=== PATIENT | male | born 1965 | race Caucasian/White ===

== ENCOUNTER 2016-12-07 19:08 | Inpatient (IN) | payer MEDICAID, OTHER ==
[2016-12-07] MEDS ORDERED: Albuterol-Ipratrop 3 mg / 0.5 (3 ml) UD ONE ×2 (19:32→20:21)
[2016-12-07] MEDS ORDERED: Albuterol-Ipratrop 3 mg / 0.5 (3 ml) UD INH STA ×2 (19:40→20:06)
[2016-12-07 19:46] LABS: ADD MANUAL DIFF? NO
[2016-12-07 19:59] LABS: CHLORIDE 97 mmol/L (98-107); SODIUM 135 mmol/L (132-148)
[2016-12-07 20:00] LABS: ALB/GLOB RATIO 0.9 (1.0-2.1); AST/SGOT 17 U/L (17-59); BILIRUBIN,TOTAL 0.9 mg/dL (0.2-1.3); BLOOD UREA NITROGEN 14 mg/dL (9-20); CARBON DIOXIDE 26 mmol/L (22-30); GFR AFRICAN-AMERICAN > 60; TOTAL PROTEIN 8.8 g/dL (6.3-8.3)
[2016-12-07 20:01] LABS: ALKALINE PHOSPHATASE 90 U/L (38-126); ALT/SGPT 18 U/L (21-72); CALCIUM 8.6 mg/dl (8.6-10.4); GLUCOSE,RANDOM 106 mg/dL (75-110); POTASSIUM 3.9 mmol/L (3.6-5.2)
[2016-12-07 20:07] LABS: BASO # 0.1 K/uL (0.0-0.2); BASO % 0.6 % (0.0-2.0); EOS % 0.2 % (0.0-4.0); HEMATOCRIT 41.6 % (35.0-51.0); LYMPH # 2.7 K/uL (1.0-4.3); LYMPH % 13.9 % (20.0-40.0); MEAN CELL VOLUME 90.8 fL (80.0-94.0); MEAN CORPUSCULAR HEMOGLOBIN 30.7 pg (27.0-31.0); MEAN CORPUSCULAR HGB CONC 33.7 g/dL (33.0-37.0); MEAN PLATELET VOLUME 9.2 fL (7.2-11.7); MONO # 2.4 K/uL (0.0-0.8); MONO % 12.5 % (0.0-10.0); PLATELET COUNT 352 K/uL (130-400); RED CELL DISTRIBUTION WIDTH 13.4 % (11.5-14.5); WHITE BLOOD COUNT 19.2 K/uL (4.8-10.8)
--- NOTE | 2016-12-07 20:55 | C.PDOC ---
History Of Present Illness 51 y/o male presents to the emergency department with complains of cough and SOB for the past 2 weeks. Pt recently traveled out of the country to [facility]. Pt also complaining of dysuria x2 weeks. Pt denies chest pain, penile discharge , fever, vomiting or any other complaints. Time Seen by Provider: 12/07/16 20:00 Chief Complaint (Nursing): Cough, Cold, Congestion History Per: Patient History/Exam Limitations: no limitations Onset/Duration Of Symptoms: Days Current Symptoms Are (Timing): Still Present Severity: Moderate Recent travel outside of the [place]: Yes Past Medical History Reviewed: Historical Data, Nursing Documentation, Vital Signs Vital Signs: Last Vital Signs Temp 98.4 F 12/07/16 22:52 Pulse 102 H 12/07/16 22:52 Resp 20 12/07/16 22:52 BP 122/79 12/07/16 22:52 Pulse Ox 96 12/07/16 22:52 - Medical History PMH: Anemia, Asthma Family History: States: Unknown Family Hx - Social History Hx Tobacco Use: No Hx Alcohol Use: Yes Hx Substance Use: No - Immunization History Hx Tetanus Toxoid Vaccination: No Hx Influenza Vaccination: No Hx Pneumococcal Vaccination: No Review Of Systems Except As Marked, All Systems Reviewed And Found Negative. Constitutional: Negative for: Fever Cardiovascular: Negative for: Chest Pain Respiratory: Positive for: Cough, Shortness of Breath Gastrointestinal: Negative for: Vomiting Genitourinary: Positive for: Dysuria. Negative for: Penile Discharge Physical Exam - Physical Exam Appears: Non-toxic, No Acute Distress Skin: Warm, Dry, No Rash Head: Atraumatic, Normacephalic Oral Mucosa: Moist Throat: Normal, No Erythema Neck: Normal, Normal ROM, Supple Chest: Symmetrical Cardiovascular: Rhythm Regular, No Murmur Respiratory: Normal Breath Sounds, No Rales, No Rhonchi, No Wheezing, Other ( dry nonproductive cough) Gastrointestinal/Abdominal: Normal Exam, Soft, No Tenderness Extremity: Normal ROM Extremity: Bilateral: Atraumatic Neurological/Psych: Oriented x3, Normal Speech ED Course And Treatment - Laboratory Results Result Diagrams: 12/07/16 19:45 12/07/16 19:45 Lab Interpretation: Abnormal (UA 86 WBC's) O2 Sat by Pulse Oximetry: 97 (room air) Pulse Ox Interpretation: Normal - Radiology CXR: Interpreted by Me CXR Interpretation: Yes: Infiltrates (? RLL/RML infiltrate) Progress Note: Plan: labs, CXR, UA, nebulizer, pepcid, prednisone Reevaluation Time: 22:38 Reassessment Condition: Improved - Physician Consult Information Outcome Of Conversation: 223: d/w Dr. Nye- Hospitalist medicine conduit helper Medical Decision Making Medical Decision Making: atypical PNA Asthma? UTI ? Pyelo leukocytosis may be related to recent prednisone burst from an outside clinic for asthma treatment. 2230: Initially tachycardic and tachypneic considered as asthmatic and delays in UA and afebrile pt appeared as simple asthma. later with pyuria, back pain, leukocytosis with L shift and tachycardia/fever, then blood/urine cultures ordered and broad spectrum abx started. Disposition Doctor Will See Patient In The: Hospital Counseled Patient/Family Regarding: Studies Performed, Diagnosis - Disposition Disposition: HOSPITALIZED Disposition Time: 22:39 Condition: GOOD - Clinical Impression Clinical Impression: Atypical pneumonia, UTI (urinary tract infection), Pyelonephritis - Scribe Statement The provider has reviewed the documentation as recorded by the Nhan Fulton Provider Attestation: All medical record entries made by the Nhan were at my direction and personally dictated by me. I have reviewed the chart and agree that the record accurately reflects my personal performance of the history, physical exam, medical decision making, and the department course for this patient. I have also personally directed, reviewed, and agree with the discharge instructions and disposition.
[2016-12-07 21:45] LABS: RBC URINE 15 /hpf (0-3); URINE BACTERIA RARE (<OCC); URINE BILIRUBIN NEGATIVE (NEGATIVE); URINE BLOOD NEGATIVE (NEGATIVE); URINE COLOR Yellow (YELLOW); URINE GLUCOSE (UA) NORMAL (Normal); URINE KETONE 1+ mg/dL (NEGATIVE); URINE LEUKOCYTE ESTERASE 2+ Leu/uL (Negative); URINE PROTEIN 2+ mg/dL (NEGATIVE); URINE UROBILINOGEN NORMAL mg/dL (0.2-1.0); WBC URINE 86 /hpf (0-5)
[2016-12-07] MEDS ORDERED: Azithromycin 500 MG in Sodium Chloride 0.9% 250 ML IV STA (22:33)
[2016-12-07] MEDS ORDERED: Sodium Chloride 0.9% 1,000 ML IV ONE (22:34)
[2016-12-07] MEDS ORDERED: cefTRIAXone IV 1 gm in Dextros 50 ML IVPB ONE (22:35)
[2016-12-07] MEDS ORDERED: Azithromycin 500mg/250ML NS 500 MG/250 ML BAG IVPB ONE (23:07)
[2016-12-07] MEDS ORDERED: Albuterol 0.042% Inhal Sol (1.25 mg/3 mL) UD INH PRN (23:40)
[2016-12-07] MEDS ORDERED: Azithromycin 500mg/250ML NS 500 MG/250 ML BAG IVPB SCH (23:45)
[2016-12-08] MEDS ORDERED: Sodium Chloride 0.9% 500 ML IV ONE (00:23)
[2016-12-08 01:00] LABS: VENOUS BLOOD GAS BASE EXCESS -15.5 mmol/L (0.0-2.0); VENOUS BLOOD GAS PCO2 16 mmHg (40-60); VENOUS BLOOD PH 7.31 (7.32-7.43)
[2016-12-08] MEDS: Sodium Chloride 0.9% 1,000 ML IV SCH ×4 (01:30→20:45)
[2016-12-08] MEDS ORDERED: Iodixanol 320 MG/ML 100 ML BOTTLE IV ONE (03:36)
--- NOTE | 2016-12-08 04:05 | CP.PCM.HP ---
<Karen Walters - Last Filed: 12/08/16 04:05> History of Present Illness - History of Present Illness History of Present Illness: CC - "Burning while urinating" HPI - 51 year old male with a past medical history of Asthma presents to the ED for dysuria. He stated that he went to [place] recently to help his brother and because it was so dry he got an asthma exacerbation. He was seen by a doctor then and was given albuterol and oral steroids. He reports that for the past week he has had this dysuria. He denieds penile discharge. He denies seeing blood in the urine. He reports fevers and chills and states that he is sweating a lot. He admitted to some tenderness on his Left side and felt suprapubic pain earlier in the week but now this is gone. He admits to sexual acitvity with his girlfriends. He denies all other complaints. PMHx - Asthma (last exacerbation 2 weeks ago then 4years ago, never intubated) Meds - Albuterol, recenlty took steroids for exacerbation Allergies - PEN (rash on face) FamHx - mom had colon cancer, alive, father has diabetes, brother has asthma, no hx NH or stroke Surg - denies Social - used to drink a lot now only occasionally, denied smoking or drug use Present on Admission - Present on Admission Any Indicators Present on Admission: No Review of Systems - Constitutional Constitutional: Chills, Fever, Night Sweats. absent: Headache - EENT Eyes: absent: Blurred Vision, Change in Vision Ears: absent: Dizziness - Cardiovascular Cardiovascular: absent: Chest Pain, Chest Pain at Rest, Palpitations, Pedal Edema, Syncope - Respiratory Respiratory: Cough. absent: Dyspnea, Dyspnea on Exertion - Gastrointestinal Gastrointestinal: absent: Abdominal Pain, Constipation, Diarrhea, Nausea, Vomiting - Genitourinary Genitourinary: Change in Urinary Stream, Dysuria, Flank Pain - Neurological Neurological: absent: Dizziness, Numbness, Tingling, Weakness Past Patient History - Past Medical History & Family History Past Medical History?: Yes - Past Social History Smoking Status: Never Smoked - CARDIAC Hx Cardiac Disorders: No - PULMONARY Hx Respiratory Disorders: Yes Hx Asthma: Yes - NEUROLOGICAL Hx Neurological Disorder: No - HEENT Hx HEENT Problems: No - RENAL Hx Chronic Kidney Disease: No - ENDOCRINE/METABOLIC Hx Endocrine Disorders: No - HEMATOLOGICAL/ONCOLOGICAL Hx Blood Disorders: Yes Hx Anemia: Yes - INTEGUMENTARY Hx Dermatological Problems: No - MUSCULOSKELETAL/RHEUMATOLOGICAL Hx Musculoskeletal Disorders: No Hx Falls: No - GASTROINTESTINAL Hx Gastrointestinal Disorders: No - PSYCHIATRIC Hx Psychophysiologic Disorder: No Hx Substance Use: No - SURGICAL HISTORY Hx Surgeries: No - ANESTHESIA Hx Anesthesia: No Hx Anesthesia Reactions: No Hx Malignant Hyperthermia: No Has any member of the family had a problem w/ anesthesia?: No Meds Allergies/Adverse Reactions: Allergies Allergy/AdvReac Type Severity Reaction Status Date / Time No Known Allergies Allergy Verified 06/03/15 09:32 Physical Exam - Constitutional Appears: Toxic, No Acute Distress Additional comments: DIaphoretic - Head Exam Head Exam: ATRAUMATIC, NORMAL INSPECTION - Eye Exam Eye Exam: EOMI, PERRL - ENT Exam ENT Exam: Mucous Membranes Moist - Respiratory Exam Respiratory Exam: Clear to Auscultation Bilateral, NORMAL BREATHING PATTERN. absent: Accessory Muscle Use, Respiratory Distress - Cardiovascular Exam Cardiovascular Exam: Tachycardia, REGULAR RHYTHM, +S1, +S2 - GI/Abdominal Exam GI & Abdominal Exam: Normal Bowel Sounds, Soft. absent: Distended, Firm, Guarding, Tenderness - Extremities Exam Extremities exam: Positive for: normal inspection - Back Exam Back exam: NORMAL INSPECTION. absent: CVA tenderness (L), CVA tenderness (R), paraspinal tenderness - Neurological Exam Neurological exam: Alert, Oriented x3 - Psychiatric Exam Psychiatric exam: Normal Affect, Normal Mood - Skin Skin Exam: Dry, Intact, Normal Color, Warm Results - Vital Signs Recent Vital Signs: Last Vital Signs Temp 97.9 F 12/08/16 00:38 Pulse 100 H 12/08/16 00:38 Resp 20 12/08/16 00:38 BP 113/73 12/08/16 00:38 Pulse Ox 97 12/08/16 00:42 - Labs Result Diagrams: 12/07/16 19:45 12/07/16 19:45 Labs: Laboratory Results - last 24 hr 12/08/16 00:54 pO2 32 VBG pH 7.31 L VBG pCO2 16 L* VBG HCO3 11.7 VBG Total CO2 8.6 L VBG O2 Sat (Calc) 73.6 H VBG Base Excess -15.5 L VBG Potassium 1.0 L* Sodium 155.0 H Chloride 130.0 H Glucose 74 L Lactate 0.8 Crit Value Called To Dr bautista Crit Value Called By Jil bowers rt Crit Value Read Back Y Blood Gas Notified Time 103 Venous Blood Potassium 1.0 L* Assessment & Plan - Assessment and Plan (Free Text) Assessment: UTI - SIRS criteria r/o pyelonephritis WBC 19.2 (recent steroid use), Febrile, Tachycardic, diaphoretic UA 2+ LE, 86 WBC, 15 RBC 1+Ketones, 2+ protein Tylenol prn fever Ceftriaxone 1gm IVPB daily (started 12/07) f/u CT chest,abd,pelvis f/u chest X ray official read VBG lactic Acid 0.8 NS bolus NS at 150 cc/hour f/u echo f/u am labs, blood, urine cultures, f/u repeat lactic acid Asthma r/o pneumonia f/u CT chest,abd,pelvis Albuterol prn Pulmicort INH Q12 hours Azithromycin 500mg IVPB Q24 hours (started 12/07) Prophylactic Measures Pepcid 20mg PO BID Heparin SC <Mihir Bautista P - Last Filed: 12/08/16 23:35> Results - Vital Signs Recent Vital Signs: Last Vital Signs Temp 97.5 F L 12/08/16 15:36 Pulse 93 H 12/08/16 15:36 Resp 20 12/08/16 15:36 BP 119/74 12/08/16 15:36 Pulse Ox 96 12/08/16 15:36 - Labs Result Diagrams: 12/08/16 05:28 12/08/16 05:28 Labs: Laboratory Results - last 24 hr 12/08/16 12/08/16 12/08/16 00:54 05:28 05:28 WBC 17.5 H RBC 4.45 Hgb 13.4 Hct 40.9 MCV 91.8 MCH 30.1 MCHC 32.8 L RDW 13.6 Plt Count 342 MPV 9.3 Neut % (Auto) 90.7 H Lymph % (Auto) 7.0 L Hall % (Auto) 1.5 Eos % (Auto) 0.0 Baso % (Auto) 0.8 Neut # 15.9 H Lymph # 1.2 Hall # 0.3 Eos # 0.0 Baso # 0.1 Neutrophils % (Manual) 90 H Lymphocytes % (Manual) 9 L Monocytes % (Manual) 1 Platelet Estimate Normal pO2 32 VBG pH 7.31 L VBG pCO2 16 L* VBG HCO3 11.7 VBG Total CO2 8.6 L VBG O2 Sat (Calc) 73.6 H VBG Base Excess -15.5 L VBG Potassium 1.0 L* Sodium 155.0 H 139 Chloride 130.0 H 102 Glucose 74 L Lactate 0.8 Crit Value Called To Dr bautista Crit Value Called By Jil bowers rt Crit Value Read Back Y Blood Gas Notified Time 103 Potassium 3.9 Carbon Dioxide 26 Anion Gap 16 BUN 13 Creatinine 0.9 Est GFR ( Amer) > 60 Est GFR (Non-Af Amer) > 60 Random Glucose 176 H Lactic Acid Calcium 8.4 L Phosphorus 3.3 Magnesium 2.1 Total Bilirubin 0.6 AST 21 ALT 15 L Alkaline Phosphatase 78 Total Protein 8.4 H Albumin 4.0 Globulin 4.4 H Albumin/Globulin Ratio 0.9 L Venous Blood Potassium 1.0 L* HIV 1&2 Antibody Screen Ur L.pneumophila Ag Mycoplasma pneumon IgM 12/08/16 12/08/16 12/08/16 05:28 05:28 05:28 WBC RBC Hgb Hct MCV MCH MCHC RDW Plt Count MPV Neut % (Auto) Lymph % (Auto) Hall % (Auto) Eos % (Auto) Baso % (Auto) Neut # Lymph # Hall # Eos # Baso # Neutrophils % (Manual) Lymphocytes % (Manual) Monocytes % (Manual) Platelet Estimate pO2 VBG pH VBG pCO2 VBG HCO3 VBG Total CO2 VBG O2 Sat (Calc) VBG Base Excess VBG Potassium Sodium Chloride Glucose Lactate Crit Value Called To Crit Value Called By Crit Value Read Back Blood Gas Notified Time Potassium Carbon Dioxide Anion Gap BUN Creatinine Est GFR ( Amer) Est GFR (Non-Af Amer) Random Glucose Lactic Acid 1.2 Calcium Phosphorus Magnesium Total Bilirubin AST ALT Alkaline Phosphatase Total Protein Albumin Globulin Albumin/Globulin Ratio Venous Blood Potassium HIV 1&2 Antibody Screen Negative Ur L.pneumophila Ag Negative Mycoplasma pneumon IgM Negative Attending/Attestation - Attestation I have personally seen and examined this patient.: Yes I have fully participated in the care of the patient.: Yes I have reviewed all pertinent clinical information: Yes Notes (Text): 12/08/16 23:33 With multifocal symptoms, young male, with weight loss, legionella will be r/o, hiv status, watchful eye for bactermia while empirically treating above systems with antibiotics.
[2016-12-08 05:32] LABS: BASO # 0.1 K/uL (0.0-0.2); BASO % 0.8 % (0.0-2.0); HEMATOCRIT 40.9 % (35.0-51.0); LYMPH # 1.2 K/uL (1.0-4.3); MEAN CELL VOLUME 91.8 fL (80.0-94.0); MEAN CORPUSCULAR HEMOGLOBIN 30.1 pg (27.0-31.0); MEAN CORPUSCULAR HGB CONC 32.8 g/dL (33.0-37.0); MEAN PLATELET VOLUME 9.3 fL (7.2-11.7); MONO # 0.3 K/uL (0.0-0.8); MONO % 1.5 % (0.0-10.0); PLATELET COUNT 342 K/uL (130-400); RED CELL DISTRIBUTION WIDTH 13.6 % (11.5-14.5); WHITE BLOOD COUNT 17.5 K/uL (4.8-10.8)
[2016-12-08 05:40] LABS: CHLORIDE 102 mmol/L (98-107)
[2016-12-08 05:41] LABS: POTASSIUM 3.9 mmol/L (3.6-5.2); SODIUM 139 mmol/L (132-148)
[2016-12-08 05:43] LABS: ALKALINE PHOSPHATASE 78 U/L (38-126); AST/SGOT 21 U/L (17-59); BILIRUBIN,TOTAL 0.6 mg/dL (0.2-1.3); CARBON DIOXIDE 26 mmol/L (22-30); GFR AFRICAN-AMERICAN > 60
[2016-12-08 05:44] LABS: ALB/GLOB RATIO 0.9 (1.0-2.1); ALT/SGPT 15 U/L (21-72); BLOOD UREA NITROGEN 13 mg/dL (9-20); CALCIUM 8.4 mg/dl (8.6-10.4); GLUCOSE,RANDOM 176 mg/dL (75-110); MAGNESIUM 2.1 mg/dL (1.6-2.3); PHOSPHOROUS 3.3 mg/dL (2.5-4.5); TOTAL PROTEIN 8.4 g/dL (6.3-8.3)
[2016-12-08 06:23] LABS: NEUTROPHIL 90 % (50-75); TOTAL CELLS COUNTED 100
[2016-12-08] MEDS: Albuterol 0.083% Inhal Sol (2.5 mg/3 mL) UD INH PRN (08:27)
[2016-12-08] MEDS: Budesonide 0.5 mg/2 ml Inhal Susp UD INH SCH ×2 (08:27→20:24)
[2016-12-08 08:41] LABS: LEGIONELLA AG URINE NEGATIVE (NEGATIVE)
--- NOTE | 2016-12-08 09:56 | CP.PCM.PN ---
Subjective - Date & Time of Evaluation Date of Evaluation: 12/08/16 Time of Evaluation: 09:10 - Subjective Subjective: Medicine Note- Hospitalist Note Medicine Note- Hospitalist Service Patient was seen and examined at bedside. Patient reports that he still has some mild dysuria. Patient reports his breathing is much better than when he first came in. No events overnight, per nursing. Objective - Vital Signs/Intake and Output Vital Signs (last 24 hours): Temp Pulse Resp BP Pulse Ox 97.5 F L 96 H 20 125/85 98 12/08/16 07:35 12/08/16 07:35 12/08/16 07:35 12/08/16 07:35 12/08/16 07:35 - Medications Medications: Current Medications Acetaminophen (Tylenol 325mg Tab) 650 mg PO Q6 PRN PRN Reason: Fever >100.4 F Albuterol Sulfate (Albuterol 0.083% Inhal Amanda (2.5 Mg/3 Ml) Ud) 2.5 mg INH RQ6 PRN PRN Reason: Wheezing Last Admin: 12/08/16 08:27 Dose: 2.5 mg Albuterol Sulfate (Albuterol 0.042% Inhal Amanda (1.25mg/3ml) Ud) 1.25 mg INH RQ3 PRN PRN Reason: Wheezing Budesonide (Pulmicort Respules) 0.5 mg INH RQ12 [facility] Last Admin: 12/08/16 08:27 Dose: 0.5 mg Famotidine (Pepcid) 20 mg PO BID [facility] Last Admin: 12/08/16 09:29 Dose: 20 mg Heparin Sodium (Porcine) (Heparin) 5,000 units SC Q8 [facility] Last Admin: 12/08/16 07:43 Dose: 5,000 units Sodium Chloride (Sodium Chloride 0.9%) 1,000 mls @ 150 mls/hr IV .Q6H40M [facility] Last Admin: 12/08/16 07:05 Dose: 150 mls/hr Ceftriaxone Sodium 1 gm/ (Sodium Chloride) 100 mls @ 100 mls/hr IVPB DAILY [facility] Last Admin: 12/08/16 09:29 Dose: 100 mls/hr Azithromycin (Zithromax 500mg In Ns Addvantage) 500 mg in 250 mls @ 167 mls/hr IVPB Q24H [facility] Last Admin: 12/07/16 23:48 Dose: Not Given Pneumococcal Polyvalent Vaccine (Pneumovax 23 Vaccine) 0.5 ml IM .ONCE ONE Stop: 12/11/16 14:01 - Labs Labs: 12/08/16 05:28 12/08/16 05:28 - Constitutional Appears: Non-toxic, No Acute Distress - Head Exam Head Exam: ATRAUMATIC, NORMAL INSPECTION, NORMOCEPHALIC - Eye Exam Pupil Exam: NORMAL ACCOMODATION, PERRL - ENT Exam ENT Exam: Mucous Membranes Moist - Respiratory Exam Respiratory Exam: Clear to Ausculation Bilateral, NORMAL BREATHING PATTERN. absent: Prolonged Expiratory Phase, Rales, Rhonchi, Wheezes - Cardiovascular Exam Cardiovascular Exam: REGULAR RHYTHM, +S1, +S2 - GI/Abdominal Exam GI & Abdominal Exam: Soft, Normal Bowel Sounds. absent: Guarding, Rigid, Tenderness, Diminished Bowel Sounds, Hypoactive Bowel Sounds - Extremities Exam Extremities Exam: Normal Capillary Refill - Back Exam Back Exam: absent: CVA tenderness (L) - Neurological Exam Neurological Exam: Alert, Awake, Oriented x3 - Psychiatric Exam Psychiatric exam: Normal Affect, Normal Mood - Skin Skin Exam: Dry, Intact, Normal Color, Warm Assessment and Plan - Assessment and Plan (Free Text) Assessment: UTI - SIRS criteria r/o pyelonephritis WBC 19.2 (recent steroid use), Febrile, Tachycardic, diaphoretic UA 2+ LE, 86 WBC, 15 RBC 1+Ketones, 2+ protein Tylenol prn fever Ceftriaxone 1gm IVPB daily (started 12/07) f/u CT chest,abd,pelvis f/u chest X ray official read VBG lactic Acid 0.8 NS bolus NS at 150 cc/hour f/u echo f/u am labs, blood, urine cultures, f/u repeat lactic acid Asthma r/o pneumonia f/u CT chest,abd,pelvis Albuterol prn Pulmicort INH Q12 hours Azithromycin 500mg IVPB Q24 hours (started 12/07) Prophylactic Measures Pepcid 20mg PO BID Heparin SC
--- NOTE | 2016-12-08 11:39 | CP.PCM.PN ---
Subjective - Date & Time of Evaluation Date of Evaluation: 12/08/16 Time of Evaluation: 08:00 - Subjective Subjective: Medicine Note for Dr. Ruby, Patient was seen and examined at bedside. Patient reports his breathing has much improved. Admitted to chills and diaphoresis. Denied fever, headache, chest pain, abdominal pain, n/v/d/c, or urinary symptoms. Objective - Vital Signs/Intake and Output Vital Signs (last 24 hours): Temp Pulse Resp BP Pulse Ox 97.5 F L 96 H 20 125/85 98 12/08/16 07:35 12/08/16 07:35 12/08/16 07:35 12/08/16 07:35 12/08/16 07:35 - Medications Medications: Current Medications Acetaminophen (Tylenol 325mg Tab) 650 mg PO Q6 PRN PRN Reason: Fever >100.4 F Albuterol Sulfate (Albuterol 0.083% Inhal Amanda (2.5 Mg/3 Ml) Ud) 2.5 mg INH RQ6 PRN PRN Reason: Wheezing Last Admin: 12/08/16 08:27 Dose: 2.5 mg Albuterol Sulfate (Albuterol 0.042% Inhal Amanda (1.25mg/3ml) Ud) 1.25 mg INH RQ3 PRN PRN Reason: Wheezing Budesonide (Pulmicort Respules) 0.5 mg INH RQ12 [facility] Last Admin: 12/08/16 08:27 Dose: 0.5 mg Famotidine (Pepcid) 20 mg PO BID [facility] Last Admin: 12/08/16 09:29 Dose: 20 mg Heparin Sodium (Porcine) (Heparin) 5,000 units SC Q8 [facility] Last Admin: 12/08/16 07:43 Dose: 5,000 units Sodium Chloride (Sodium Chloride 0.9%) 1,000 mls @ 150 mls/hr IV .Q6H40M [facility] Last Admin: 12/08/16 07:05 Dose: 150 mls/hr Ceftriaxone Sodium 1 gm/ (Sodium Chloride) 100 mls @ 100 mls/hr IVPB DAILY [facility] Last Admin: 12/08/16 09:29 Dose: 100 mls/hr Azithromycin (Zithromax 500mg In Ns Addvantage) 500 mg in 250 mls @ 167 mls/hr IVPB Q24H [facility] Last Admin: 12/07/16 23:48 Dose: Not Given Pneumococcal Polyvalent Vaccine (Pneumovax 23 Vaccine) 0.5 ml IM .ONCE ONE Stop: 12/11/16 14:01 - Labs Labs: 12/08/16 05:28 12/08/16 05:28 - Constitutional Appears: No Acute Distress - Head Exam Head Exam: NORMAL INSPECTION, NORMOCEPHALIC - Respiratory Exam Respiratory Exam: Clear to Ausculation Bilateral, NORMAL BREATHING PATTERN. absent: Wheezes - Cardiovascular Exam Cardiovascular Exam: REGULAR RHYTHM, RRR, +S1, +S2 - GI/Abdominal Exam GI & Abdominal Exam: Soft, Normal Bowel Sounds. absent: Distended, Tenderness - Extremities Exam Extremities Exam: Normal Inspection. absent: Pedal Edema, Tenderness - Neurological Exam Neurological Exam: Alert, Awake, Oriented x3 - Skin Skin Exam: Dry, Intact, Normal Color, Warm Assessment and Plan - Assessment and Plan (Free Text) Plan: UTI - SIRS criteria r/o pyelonephritis WBC 19.2 (recent steroid use), Febrile, Tachycardic, Diaphoretic UA 2+ LE, 86 WBC, 15 RBC 1+Ketones, 2+ protein VBG lactic Acid 0.8 ---> 1.2 NS at 150 cc/hour Tylenol prn fever Ceftriaxone 1gm IVPB daily (started 12/07) f/u CT chest,abd,pelvis f/u echo f/u blood, urine cultures Asthma r/o pneumonia - No PNA on CT, stopped Azithromycin f/u chest X ray official read f/u CT chest,abd,pelvis official read Albuterol prn Pulmicort INH Q12 hours Prophylactic Measures Pepcid 20mg PO BID Heparin SC [facility] Quincy Aguirre DO, PGY-1
--- NOTE | 2016-12-08 16:55 | CT ---
PROCEDURE: CT Chest, Abdomen and Pelvis with intravenous contrast HISTORY: r/o pyelo, and pneumonia COMPARISON: Comparison made with chest radiograph dated 12/07/2016 TECHNIQUE: IV dose administered: 100 cc Visipaque 320 contrast material. Radiation dose: Total exam DLP = mGy-cm. This CT exam was performed using one or more of the following dose reduction techniques: Automated exposure control, adjustment of the mA and/or kV according to patient size, and/or use of iterative reconstruction technique. FINDINGS: CT CHEST WITH CONTRAST: LUNGS: Mild atelectasis/ scarring both posterior sulci and left greater than right. In addition, there is a vague very vague hazy translucent ground-glass opacity in the lingular region which is nonspecific though this could represent some atelectasis. Remaining lung singh are clear. Early infection cannot be completely excluded. MEDIASTINUM: Heart size is within range of normal. No significant pericardial effusion. Ascending thoracic aorta measures approximately 2.8 cm and descending thoracic aorta measures approximately 2.3 cm. Pulmonary trunk measures approximately 2.7 cm. Few small nonspecific mediastinal lymph nodes are present. No significant hilar adenopathy is identified. There is small hiatal hernia with slight wall thickening of the distal esophagus that could be due to protrusion of gastric mucosa. Possibility of esophagitis not excluded. The central airways are midline and patent. LYMPH NODES: As above. PLEURA: No evidence of pneumothorax. No pleural effusion. BONES: Unremarkable. OTHER FINDINGS: None. CT ABDOMEN AND PELVIS: LIVER: Liver exhibits normal size just over 16 cm in cc dimension. Mild diffuse fatty hepatic infiltration. Portal and splenic veins are opacified. GALLBLADDER AND BILE DUCTS: Gallbladder is physiologically distended. No evidence of intraluminal gallbladder calculi. PANCREAS: Unremarkable. No gross lesion or ductal dilatation. SPLEEN: Unremarkable. ADRENALS: There are no adrenal lesions. KIDNEYS AND URETERS: There is a new area of diminished contrast enhancement in the upper pole right renal cortex consistent with pyelonephritis. There may be a few punctate calcifications upper pole cortex as well. Periureteral infiltration/ stranding proximally ureter likely postinflammatory as well. No evidence hydronephrosis. Right kidney appears unremarkable. VASCULATURE: Unremarkable. No aortic aneurysm. BOWEL: Evaluation of the bowel is limited due to the lack of oral contrast material. Stomach is incompletely distended which may account slight thick-walled appearance. Gastritis not excluded. Visualized loops of small bowel exhibit normal contour and caliber. No evidence acute mechanical small bowel obstruction. Moderate amount of stool is seen within the at ascending colon and rectosigmoid consistent with mild fecal retention. No definitive mural wall thickening. APPENDIX: Appendix not seen with certainty. No obvious inflammatory changes right lower quadrant of the abdomen PERITONEUM: Unremarkable. No free fluid. No free air. Small fat containing umbilical hernia. LYMPH NODES: Unremarkable. No enlarged lymph nodes. BLADDER: Urinary bladder is incompletely distended which may account for thick-walled appearance. Muscular hypertrophy may contribute. Cystitis must be considered given the patient's history of pyelonephritis. REPRODUCTIVE: Unremarkable. BONES: Minor degenerative spondylosis of the lumbar spine slight posterior subluxation L4 over L5 and to a lesser degree L5 over S1. OTHER FINDINGS: None. IMPRESSION: Findings consistent with left-sided pyelonephritis. Mild stranding and infiltration changes in the proximal right periureteral region likely reactive given due the patient's finding of left-sided pyelonephritis. The urinary bladder is also thick-walled appearance which may in part be due to incomplete distention all lobe muscular hypertrophy may also contribute. The cystitis must also be takes considered given the patient's finding of a left-sided pyelonephritis. Mild on bibasilar atelectasis and or scarring left greater than right. Vague ground-glass passes lingular region on could represent some atelectasis is well though early developing infiltrate not excluded. Mild fatty hepatic infiltration.
--- NOTE | 2016-12-08 17:14 | RAD ---
HISTORY: COUGH X 3 WEEKS COMPARISON: Comparison chest dated 06/03/2015. TECHNIQUE: Chest PA and lateral FINDINGS: LUNGS: There appears to be some minor bibasilar atelectasis. PLEURA: No significant pleural effusion identified. No pneumothorax apparent. CARDIOVASCULAR: Normal. OSSEOUS STRUCTURES: No significant abnormalities. VISUALIZED UPPER ABDOMEN: Normal. OTHER FINDINGS: None. IMPRESSION: Minor bibasilar atelectasis.
[2016-12-09] MEDS: Sodium Chloride 0.9% 1,000 ML IV SCH ×5 (00:30→21:26)
[2016-12-09 08:00] LABS: ALB/GLOB RATIO 0.8 (1.0-2.1); ALKALINE PHOSPHATASE 59 U/L (38-126); ALT/SGPT 19 U/L (21-72); AST/SGOT 17 U/L (17-59); BILIRUBIN,TOTAL 0.5 mg/dL (0.2-1.3); BLOOD UREA NITROGEN 13 mg/dL (9-20); CARBON DIOXIDE 26 mmol/L (22-30); CHLORIDE 105 mmol/L (98-107); GFR AFRICAN-AMERICAN > 60; GLUCOSE,RANDOM 101 mg/dL (75-110); MAGNESIUM 1.9 mg/dL (1.6-2.3); PHOSPHOROUS 2.3 mg/dL (2.5-4.5); POTASSIUM 4.2 mmol/L (3.6-5.2); SODIUM 140 mmol/L (132-148); TOTAL PROTEIN 6.9 g/dL (6.3-8.3)
[2016-12-09 08:01] LABS: BASO # 0.1 K/uL (0.0-0.2); BASO % 0.8 % (0.0-2.0); EOS # 0.1 K/uL (0.0-0.7); EOS % 0.4 % (0.0-4.0); HEMATOCRIT 35.7 % (35.0-51.0); LYMPH # 2.7 K/uL (1.0-4.3); LYMPH % 22.6 % (20.0-40.0); MEAN CELL VOLUME 91.1 fL (80.0-94.0); MEAN CORPUSCULAR HEMOGLOBIN 30.7 pg (27.0-31.0); MEAN CORPUSCULAR HGB CONC 33.7 g/dL (33.0-37.0); MEAN PLATELET VOLUME 10.1 fL (7.2-11.7); MONO # 0.9 K/uL (0.0-0.8); MONO % 7.5 % (0.0-10.0); NRBC % 0.1 % (0.0-2.0); RED CELL DISTRIBUTION WIDTH 13.5 % (11.5-14.5); WHITE BLOOD COUNT 11.8 K/uL (4.8-10.8)
[2016-12-09] MEDS: Albuterol 0.083% Inhal Sol (2.5 mg/3 mL) UD INH PRN (08:21)
[2016-12-09] MEDS: Budesonide 0.5 mg/2 ml Inhal Susp UD INH SCH ×2 (08:21→19:13)
--- NOTE | 2016-12-09 08:36 | CP.PCM.PN ---
<Lavell Mathewa - Last Filed: 12/09/16 08:31> Subjective - Date & Time of Evaluation Date of Evaluation: 12/09/16 Time of Evaluation: 07:00 - Subjective Subjective: Medicine Note for Dr. Hodges, Patient was seen and examined at bedside. Patient reports his breathing has much improved. He no longer has lower abdominal pain or dysuria. Denied fever, headache, chest pain, abdominal pain, n/v/d/c, or urinary symptoms. Objective - Vital Signs/Intake and Output Vital Signs (last 24 hours): Temp Pulse Resp BP Pulse Ox 97.5 F L 85 20 108/72 98 12/09/16 05:02 12/09/16 05:02 12/09/16 05:02 12/09/16 05:02 12/09/16 05:02 Intake and Output: 12/09/16 12/09/16 06:59 18:59 Intake Total 2840 Balance 2840 - Medications Medications: Current Medications Acetaminophen (Tylenol 325mg Tab) 650 mg PO Q6 PRN PRN Reason: Fever >100.4 F Last Admin: 12/08/16 21:15 Dose: 650 mg Albuterol Sulfate (Albuterol 0.083% Inhal Amanda (2.5 Mg/3 Ml) Ud) 2.5 mg INH RQ6 PRN PRN Reason: Wheezing Last Admin: 12/09/16 08:21 Dose: 2.5 mg Albuterol Sulfate (Albuterol 0.042% Inhal Amanda (1.25mg/3ml) Ud) 1.25 mg INH RQ3 PRN PRN Reason: Wheezing Budesonide (Pulmicort Respules) 0.5 mg INH RQ12 [facility] Last Admin: 12/09/16 08:21 Dose: 0.5 mg Famotidine (Pepcid) 20 mg PO BID [facility] Last Admin: 12/08/16 18:00 Dose: 20 mg Heparin Sodium (Porcine) (Heparin) 5,000 units SC Q8 [facility] Last Admin: 12/09/16 05:29 Dose: 5,000 units Sodium Chloride (Sodium Chloride 0.9%) 1,000 mls @ 150 mls/hr IV .Q6H40M [facility] Last Admin: 12/09/16 00:30 Dose: 150 mls/hr Ceftriaxone Sodium 1 gm/ (Sodium Chloride) 100 mls @ 100 mls/hr IVPB DAILY [facility] Last Admin: 12/08/16 09:29 Dose: 100 mls/hr Pneumococcal Polyvalent Vaccine (Pneumovax 23 Vaccine) 0.5 ml IM .ONCE ONE Stop: 12/11/16 14:01 Potassium Phos/Sodium Phos (Neutra-Phos) 1 pkt PO BID [facility] Stop: 12/10/16 10:01 - Labs Labs: 12/09/16 07:26 12/09/16 07:26 - Constitutional Appears: No Acute Distress - Head Exam Head Exam: NORMAL INSPECTION, NORMOCEPHALIC - ENT Exam ENT Exam: Mucous Membranes Moist - Respiratory Exam Respiratory Exam: Clear to Ausculation Bilateral, NORMAL BREATHING PATTERN. absent: Wheezes - Cardiovascular Exam Cardiovascular Exam: REGULAR RHYTHM, RRR, +S1, +S2 - GI/Abdominal Exam GI & Abdominal Exam: Soft, Normal Bowel Sounds. absent: Distended, Tenderness - Extremities Exam Extremities Exam: Normal Inspection. absent: Pedal Edema, Tenderness - Neurological Exam Neurological Exam: Alert, Awake, Oriented x3 - Skin Skin Exam: Dry, Intact, Normal Color, Warm Assessment and Plan - Assessment and Plan (Free Text) Plan: Pyelonephritis * On admission: WBC 19.2 (recent steroid use), Febrile, Tachycardic, Diaphoretic * UA 2+ LE, 86 WBC, 15 RBC 1+Ketones, 2+ protein * VBG lactic Acid 0.8 ---> 1.2 * NS at 150 cc/hour * Tylenol prn fever * Ceftriaxone 1gm IVPB daily (started 12/07) * CT AB&P 12/07/16: Findings consistent with left-sided pyelonephritis. Mild stranding and infiltration changes in the proximal right periureteral region likely reactive given due the patient's finding of left-sided pyelonephritis. The urinary bladder is also thick-walled appearance which may in part be due to incomplete distention all lobe muscular hypertrophy may also contribute. The cystitis must also be takes considered given the patient's finding of a left- sided pyelonephritis.Mild on bibasilar atelectasis and or scarring left greater than right. Vague ground-glass passes lingular region on could represent some atelectasis is well though early developing infiltrate not excluded. Mild fatty hepatic infiltration. * Blood cultures- no growth * Urine cultures - Gram negative Russel - pending * f/u echo Asthma * r/o pneumonia - No PNA on CT, stopped Azithromycin * Chest X ray: Atelectasis * CT AB&P 12/07/16: Findings consistent with left-sided pyelonephritis. Mild stranding and infiltration changes in the proximal right periureteral region likely reactive given due the patient's finding of left-sided pyelonephritis. The urinary bladder is also thick-walled appearance which may in part be due to incomplete distention all lobe muscular hypertrophy may also contribute. The cystitis must also be takes considered given the patient's finding of a left- sided pyelonephritis.Mild on bibasilar atelectasis and or scarring left greater than right. Vague ground-glass passes lingular region on could represent some atelectasis is well though early developing infiltrate not excluded. Mild fatty hepatic infiltration. * Albuterol prn * Pulmicort INH Q12 hours Prophylactic Measures * Pepcid 20mg PO BID * Heparin SC * Regular Diet DW Quincy Self DO, PGY-1 <Aubrey Hodges - Last Filed: 12/09/16 10:55> Objective - Vital Signs/Intake and Output Vital Signs (last 24 hours): Temp Pulse Resp BP Pulse Ox 97.9 F 83 20 110/73 97 12/09/16 07:30 12/09/16 07:30 12/09/16 07:30 12/09/16 07:30 12/09/16 07:30 Intake and Output: 12/09/16 12/09/16 06:59 18:59 Intake Total 2840 Balance 2840 - Medications Medications: Current Medications Acetaminophen (Tylenol 325mg Tab) 650 mg PO Q6 PRN PRN Reason: Fever >100.4 F Last Admin: 12/09/16 08:54 Dose: 650 mg Albuterol Sulfate (Albuterol 0.083% Inhal Amanda (2.5 Mg/3 Ml) Ud) 2.5 mg INH RQ6 PRN PRN Reason: Wheezing Last Admin: 12/09/16 08:21 Dose: 2.5 mg Albuterol Sulfate (Albuterol 0.042% Inhal Amanda (1.25mg/3ml) Ud) 1.25 mg INH RQ3 PRN PRN Reason: Wheezing Budesonide (Pulmicort Respules) 0.5 mg INH RQ12 [facility] Last Admin: 12/09/16 08:21 Dose: 0.5 mg Famotidine (Pepcid) 20 mg PO BID [facility] Last Admin: 12/09/16 09:00 Dose: 20 mg Heparin Sodium (Porcine) (Heparin) 5,000 units SC Q8 [facility] Last Admin: 12/09/16 05:29 Dose: 5,000 units Sodium Chloride (Sodium Chloride 0.9%) 1,000 mls @ 150 mls/hr IV .Q6H40M [facility] Last Admin: 12/09/16 08:55 Dose: 150 mls/hr Ceftriaxone Sodium 1 gm/ (Sodium Chloride) 100 mls @ 100 mls/hr IVPB DAILY [facility] Last Admin: 12/09/16 09:00 Dose: 100 mls/hr Pneumococcal Polyvalent Vaccine (Pneumovax 23 Vaccine) 0.5 ml IM .ONCE ONE Stop: 12/11/16 14:01 Potassium Phos/Sodium Phos (Neutra-Phos) 1 pkt PO BIDCC [facility] Last Admin: 12/09/16 08:53 Dose: 1 pkt - Labs Labs: 12/09/16 07:26 12/09/16 07:26 Attending/Attestation - Attestation I have personally seen and examined this patient.: Yes I have fully participated in the care of the patient.: Yes I have reviewed all pertinent clinical information, including history, physical exam and plan: Yes Notes (Text): Medical Attending: Patient was seen and examined by me. Agree with the above note by the resident. The patient states the left flank and left lower quadrant is much better. Very minimal pain. His WBC is decreased a lot. Also the urine culture is a + preliminary negative as well. We may as well continue the rocephin as his WBC has responded very well. The CT done did not suggest a stone but maybe her had a radiolucent stone that passed or possibly prostatitis as well. With reguards to recent penumonia and asthma - he states he is not short of breath or coughing. Sleeping ok thank you Aubrey Hodges
[2016-12-09] MEDS: Potassium & Sodium Phosphate PO SCH ×2 (08:53→17:05)
[2016-12-10 07:27] LABS: BASO # 0.1 K/uL (0.0-0.2); BASO % 0.9 % (0.0-2.0); EOS # 0.1 K/uL (0.0-0.7); EOS % 1.8 % (0.0-4.0); HEMATOCRIT 37.8 % (35.0-51.0); LYMPH # 2.4 K/uL (1.0-4.3); LYMPH % 32.5 % (20.0-40.0); MEAN CELL VOLUME 91.3 fL (80.0-94.0); MEAN CORPUSCULAR HEMOGLOBIN 30.5 pg (27.0-31.0); MEAN CORPUSCULAR HGB CONC 33.4 g/dL (33.0-37.0); MEAN PLATELET VOLUME 9.8 fL (7.2-11.7); MONO # 0.6 K/uL (0.0-0.8); MONO % 8.1 % (0.0-10.0); NRBC % 0.1 % (0.0-2.0); RED CELL DISTRIBUTION WIDTH 13.4 % (11.5-14.5); WHITE BLOOD COUNT 7.3 K/uL (4.8-10.8)
[2016-12-10 07:49] LABS: CHLORIDE 104 mmol/L (98-107); POTASSIUM 3.9 mmol/L (3.6-5.2); SODIUM 139 mmol/L (132-148)
[2016-12-10 07:51] LABS: GFR AFRICAN-AMERICAN > 60
[2016-12-10 07:52] LABS: ALB/GLOB RATIO 0.9 (1.0-2.1); ALKALINE PHOSPHATASE 63 U/L (38-126); ALT/SGPT 19 U/L (21-72); AST/SGOT 18 U/L (17-59); BILIRUBIN,TOTAL 0.5 mg/dL (0.2-1.3); BLOOD UREA NITROGEN 10 mg/dL (9-20); CARBON DIOXIDE 26 mmol/L (22-30); GLUCOSE,RANDOM 93 mg/dL (75-110); PHOSPHOROUS 3.5 mg/dL (2.5-4.5); TOTAL PROTEIN 7.2 g/dL (6.3-8.3)
[2016-12-10 07:53] LABS: CALCIUM 8.3 mg/dl (8.6-10.4); MAGNESIUM 1.9 mg/dL (1.6-2.3)
[2016-12-10] MEDS: Sodium Chloride 0.9% 1,000 ML IV SCH ×2 (08:45→12:45)
[2016-12-10] MEDS: Potassium & Sodium Phosphate PO SCH ×2 (08:45→17:32)
--- NOTE | 2016-12-10 08:51 | CP.PCM.PN ---
<Magalys Oliveros - Last Filed: 12/10/16 17:28> Subjective - Date & Time of Evaluation Date of Evaluation: 12/10/16 Time of Evaluation: 11:40 - Subjective Subjective: PGY 1 Medicine Note- Dr. Chino's service Pt seen and examined in no acute distress. Patient denies any abdominal pain, back pain, suprapubic or scrotal pain, subjective fevers or chills, nausea, vomiting, diarrhea, dysuria, urinary frequency, nocturia or constipation at this time. Objective - Vital Signs/Intake and Output Vital Signs (last 24 hours): Temp Pulse Resp BP Pulse Ox 98.4 F 75 18 117/70 96 12/10/16 08:33 12/10/16 08:33 12/10/16 08:33 12/10/16 08:33 12/10/16 08:33 Intake and Output: 12/10/16 12/10/16 06:59 18:59 Intake Total 1120 Output Total 1500 Balance -380 - Medications Medications: Current Medications Acetaminophen (Tylenol 325mg Tab) 650 mg PO Q6 PRN PRN Reason: Fever >100.4 F Last Admin: 12/09/16 08:54 Dose: 650 mg Albuterol Sulfate (Albuterol 0.083% Inhal Amanda (2.5 Mg/3 Ml) Ud) 2.5 mg INH RQ6 PRN PRN Reason: Wheezing Last Admin: 12/09/16 08:21 Dose: 2.5 mg Albuterol Sulfate (Albuterol 0.042% Inhal Amanda (1.25mg/3ml) Ud) 1.25 mg INH RQ3 PRN PRN Reason: Wheezing Last Admin: 12/09/16 19:13 Dose: 1.25 mg Budesonide (Pulmicort Respules) 0.5 mg INH RQ12 [facility] Last Admin: 12/09/16 19:13 Dose: 0.5 mg Famotidine (Pepcid) 20 mg PO BID [facility] Last Admin: 12/09/16 17:05 Dose: 20 mg Heparin Sodium (Porcine) (Heparin) 5,000 units SC Q8 [facility] Last Admin: 12/10/16 07:19 Dose: 5,000 units Sodium Chloride (Sodium Chloride 0.9%) 1,000 mls @ 150 mls/hr IV .Q6H40M [facility] Last Admin: 12/10/16 08:45 Dose: 150 mls/hr Ceftriaxone Sodium 1 gm/ (Sodium Chloride) 100 mls @ 100 mls/hr IVPB DAILY [facility] Last Admin: 12/09/16 09:00 Dose: 100 mls/hr Pneumococcal Polyvalent Vaccine (Pneumovax 23 Vaccine) 0.5 ml IM .ONCE ONE Stop: 12/11/16 14:01 Potassium Phos/Sodium Phos (Neutra-Phos) 1 pkt PO BIDCC [facility] Last Admin: 12/10/16 08:45 Dose: 1 pkt - Labs Labs: 12/10/16 07:15 12/10/16 04:00 - Constitutional Appears: Non-toxic, No Acute Distress - Head Exam Head Exam: ATRAUMATIC, NORMAL INSPECTION, NORMOCEPHALIC - Eye Exam Eye Exam: EOMI, Normal appearance, PERRL Pupil Exam: NORMAL ACCOMODATION, PERRL - ENT Exam ENT Exam: Mucous Membranes Moist - Neck Exam Neck Exam: Full ROM - Respiratory Exam Respiratory Exam: NORMAL BREATHING PATTERN. absent: Wheezes - Cardiovascular Exam Cardiovascular Exam: +S1, +S2 - GI/Abdominal Exam GI & Abdominal Exam: Soft, Normal Bowel Sounds - Exam Exam: NORMAL INSPECTION. absent: Scrotal Swelling, Uretheral Discharge - Extremities Exam Extremities Exam: Full ROM, Normal Capillary Refill - Back Exam Back Exam: Full ROM - Neurological Exam Neurological Exam: Alert, Awake, Oriented x3 - Psychiatric Exam Psychiatric exam: Normal Affect, Normal Mood - Skin Skin Exam: Dry, Intact, Normal Color, Warm Assessment and Plan - Assessment and Plan (Free Text) Assessment: Pyelonephritis * On admission: WBC 19.2 (recent steroid use), Febrile, Tachycardic, Diaphoretic * UA 2+ LE, 86 WBC, 15 RBC 1+Ketones, 2+ protein * VBG lactic Acid 0.8 ---> 1.2 * NS at 150 cc/hour * Tylenol prn fever * Ceftriaxone 1gm IVPB daily (started 12/07). Will transition to oral antibiotic upon discharge * CT AB&P 12/07/16: Findings consistent with left-sided pyelonephritis. Mild stranding and infiltration changes in the proximal right periureteral region likely reactive given due the patient's finding of left-sided pyelonephritis. The urinary bladder is also thick-walled appearance which may in part be due to incomplete distention all lobe muscular hypertrophy may also contribute. The cystitis must also be takes considered given the patient's finding of a left- sided pyelonephritis.Mild on bibasilar atelectasis and or scarring left greater than right. Vague ground-glass passes lingular region on could represent some atelectasis is well though early developing infiltrate not excluded. Mild fatty hepatic infiltration. * Blood cultures- no growth * Urine cultures - E.coli sensitive to Ceftriaxone. Will continue this current antibiotic * Consult to Urology Dr. Calloway. Per Urology, further urological intervention not currently warranted but patient will be assessed * Echo: 60-65 % EF, normal left ventricular wall thickness and diastolic functioning; aortic valve mildly sclerotic, trace aortic regurg, trace mitral regurg Asthma * r/o pneumonia - No PNA on CT, stopped Azithromycin * Chest X ray: Atelectasis * CT AB&P 12/07/16: Findings consistent with left-sided pyelonephritis. Mild stranding and infiltration changes in the proximal right periureteral region likely reactive given due the patient's finding of left-sided pyelonephritis. The urinary bladder is also thick-walled appearance which may in part be due to incomplete distention all lobe muscular hypertrophy may also contribute. The cystitis must also be takes considered given the patient's finding of a left- sided pyelonephritis. Mild on bibasilar atelectasis and or scarring left greater than right. Vague ground-glass passes lingular region on could represent some atelectasis is well though early developing infiltrate not excluded. Mild fatty hepatic infiltration. * Albuterol prn * Pulmicort INH Q12 hours Prophylactic Measures * Pepcid 20mg PO BID * Heparin SC * Regular Diet <Apolinar Chino M - Last Filed: 12/10/16 18:38> Objective - Vital Signs/Intake and Output Vital Signs (last 24 hours): Temp Pulse Resp BP Pulse Ox 97.9 F 77 20 116/78 97 12/10/16 15:56 12/10/16 15:56 12/10/16 15:56 12/10/16 15:56 12/10/16 15:56 Intake and Output: 12/10/16 12/10/16 06:59 18:59 Intake Total 1120 1400 Output Total 1500 Balance -380 1400 - Medications Medications: Current Medications Acetaminophen (Tylenol 325mg Tab) 650 mg PO Q6 PRN PRN Reason: Fever >100.4 F Last Admin: 12/09/16 08:54 Dose: 650 mg Albuterol Sulfate (Albuterol 0.083% Inhal Amanda (2.5 Mg/3 Ml) Ud) 2.5 mg INH RQ6 PRN PRN Reason: Wheezing Last Admin: 12/09/16 08:21 Dose: 2.5 mg Albuterol Sulfate (Albuterol 0.042% Inhal Amanda (1.25mg/3ml) Ud) 1.25 mg INH RQ3 PRN PRN Reason: Wheezing Last Admin: 12/09/16 19:13 Dose: 1.25 mg Budesonide (Pulmicort Respules) 0.5 mg INH RQ12 [facility] Last Admin: 12/10/16 13:25 Dose: Not Given Famotidine (Pepcid) 20 mg PO BID [facility] Last Admin: 12/10/16 17:32 Dose: 20 mg Heparin Sodium (Porcine) (Heparin) 5,000 units SC Q8 [facility] Last Admin: 12/10/16 14:42 Dose: 5,000 units Sodium Chloride (Sodium Chloride 0.9%) 1,000 mls @ 150 mls/hr IV .Q6H40M [facility] Last Admin: 12/10/16 12:45 Dose: Not Given Ceftriaxone Sodium 1 gm/ (Sodium Chloride) 100 mls @ 100 mls/hr IVPB DAILY [facility] Last Admin: 12/10/16 10:09 Dose: 100 mls/hr Pneumococcal Polyvalent Vaccine (Pneumovax 23 Vaccine) 0.5 ml IM .ONCE ONE Stop: 12/11/16 14:01 Potassium Phos/Sodium Phos (Neutra-Phos) 1 pkt PO BIDCC [facility] Last Admin: 12/10/16 17:32 Dose: 1 pkt - Labs Labs: 12/10/16 07:15 12/10/16 04:00 Attending/Attestation - Attestation I have personally seen and examined this patient.: Yes I have fully participated in the care of the patient.: Yes I have reviewed all pertinent clinical information, including history, physical exam and plan: Yes Notes (Text): 12/10/16 18:38 Patient was seen and examined at bedside with the resident Patient stated that he is feeling better Flank pain is improved Urology consultation requested Continue IV antibiotics Discharge planning likely in the next 24 hours with the patient is medically stable.
[2016-12-10] MEDS: Budesonide 0.5 mg/2 ml Inhal Susp UD INH SCH ×2 (13:25→19:03)
--- NOTE | 2016-12-10 13:32 | CARD ---
APPROVED REPORT EXAM: Two-dimensional and M-mode echocardiogram with Doppler and color Doppler. Other Information Quality : GoodRhythm : NSR INDICATION Dyspnea M-Mode DIMENSIONS RVDd2.58 (2.1-3.2cm)Left Atrium (MM)2.55 (2.5-4.0cm) IVSd0.82 (0.7-1.1cm)Aortic Root3.46 (2.2-3.7cm) LVDd5.07 (4.0-5.6cm)Aortic Cusp Exc.2.22 (1.5-2.0cm) PWd0.79 (0.7-1.1cm)FS (%) 29 % LVDs3.58 (2.0-3.8cm)LVEF (%)56 (>50%) Mitral Valve MV E Rdqpttwr95.2cm/sMV A Uycfdoep21.9cm/sE/A ratio1.2 TDI E/Lateral E'0.0E/Medial E'0.0 Tricuspid Valve TR Peak [id number] Peak [id number] LEFT VENTRICLE The left ventricle is normal size. There is normal left ventricular wall thickness. Left ventricle systolic function is normal. The Ejection Fraction is 60-65%. There is normal LV segmental wall motion. The left ventricular diastolic function is normal. There is no ventricular septal defect visualized. RIGHT VENTRICLE The right ventricle is normal size. The right ventricular systolic function is normal. ATRIA The left atrium size is normal. The right atrium size is normal. AORTIC VALVE The aortic valve is mildly sclerotic. The aortic valve is tri-cuspid. There is trace aortic regurgitation. There is no aortic valvular stenosis. MITRAL VALVE The mitral valve is normal in structure. There is no evidence of mitral valve prolapse. Mitral regurgitation is trace. TRICUSPID VALVE The tricuspid valve is normal in structure. There is trace tricuspid regurgitation. Right ventricular systolic pressure is estimated at less than 30 mmHg. There is no pulmonary hypertension. PULMONIC VALVE The pulmonary valve is normal in structure. There is no pulmonic valvular regurgitation. GREAT VESSELS The IVC is normal in size and collapses >50% with inspiration. PERICARDIAL EFFUSION There is no pericardial effusion. <Conclusion> Left ventricle systolic function is normal. The Ejection Fraction is 60-65%. The left ventricular diastolic function is normal. There is trace aortic regurgitation. Mitral regurgitation is trace.
[2016-12-11] MEDS: Sodium Chloride 0.9% 1,000 ML IV SCH ×4 (04:00→15:14)
[2016-12-11 07:31] LABS: BASO # 0.1 K/uL (0.0-0.2); BASO % 1.3 % (0.0-2.0); EOS # 0.2 K/uL (0.0-0.7); EOS % 2.6 % (0.0-4.0); HEMATOCRIT 38.2 % (35.0-51.0); LYMPH # 1.8 K/uL (1.0-4.3); LYMPH % 25.3 % (20.0-40.0); MEAN CELL VOLUME 90.6 fL (80.0-94.0); MEAN CORPUSCULAR HEMOGLOBIN 30.3 pg (27.0-31.0); MEAN CORPUSCULAR HGB CONC 33.4 g/dL (33.0-37.0); MEAN PLATELET VOLUME 9.7 fL (7.2-11.7); MONO # 0.7 K/uL (0.0-0.8); RED CELL DISTRIBUTION WIDTH 13.2 % (11.5-14.5)
[2016-12-11] MEDS: Budesonide 0.5 mg/2 ml Inhal Susp UD INH SCH ×2 (07:57→19:15)
[2016-12-11] MEDS: Albuterol 0.083% Inhal Sol (2.5 mg/3 mL) UD INH PRN ×2 (07:57→19:15)
[2016-12-11 08:06] LABS: CHLORIDE 104 mmol/L (98-107); POTASSIUM 3.9 mmol/L (3.6-5.2); SODIUM 140 mmol/L (132-148)
[2016-12-11 08:08] LABS: BILIRUBIN,TOTAL 0.5 mg/dL (0.2-1.3); CARBON DIOXIDE 26 mmol/L (22-30); GFR AFRICAN-AMERICAN > 60
[2016-12-11 08:09] LABS: ALB/GLOB RATIO 0.8 (1.0-2.1); ALKALINE PHOSPHATASE 67 U/L (38-126); ALT/SGPT 58 U/L (21-72); AST/SGOT 90 U/L (17-59); BLOOD UREA NITROGEN 10 mg/dL (9-20); CALCIUM 8.3 mg/dl (8.6-10.4); GLUCOSE,RANDOM 88 mg/dL (75-110); PHOSPHOROUS 3.6 mg/dL (2.5-4.5); TOTAL PROTEIN 7.4 g/dL (6.3-8.3)
[2016-12-11] MEDS: Potassium & Sodium Phosphate PO SCH ×2 (08:22→17:28)
--- NOTE | 2016-12-11 09:31 | CP.PCM.PN ---
<Magalys Oliveros - Last Filed: 12/11/16 14:38> Subjective - Date & Time of Evaluation Date of Evaluation: 12/11/16 Time of Evaluation: 06:15 - Subjective Subjective: PGY 1 Medicine Note- Dr. Chino's service Pt seen and examined in no apparent acute distress. Patient tolerating a diet well. Patient in anticipation of going home today, however blood culture results were noted to be positive for corynebacterium species. Patient denies any abdominal pain, mid -low back pain, suprapubic or scrotal pain, subjective fevers or chills, nausea, vomiting, diarrhea, dysuria, chest pain, palpitations , urinary frequency, nocturia or constipation at this time. Objective - Vital Signs/Intake and Output Vital Signs (last 24 hours): Temp Pulse Resp BP Pulse Ox 98.4 F 76 20 99/70 L 97 12/11/16 04:10 12/11/16 04:10 12/11/16 04:10 12/11/16 04:10 12/11/16 04:10 Intake and Output: 12/11/16 12/11/16 06:59 18:59 Intake Total 1320 Balance 1320 - Medications Medications: Current Medications Acetaminophen (Tylenol 325mg Tab) 650 mg PO Q6 PRN PRN Reason: Fever >100.4 F Last Admin: 12/09/16 08:54 Dose: 650 mg Albuterol Sulfate (Albuterol 0.083% Inhal Amanda (2.5 Mg/3 Ml) Ud) 2.5 mg INH RQ6 PRN PRN Reason: Wheezing Last Admin: 12/11/16 07:57 Dose: 2.5 mg Albuterol Sulfate (Albuterol 0.042% Inhal Amanda (1.25mg/3ml) Ud) 1.25 mg INH RQ3 PRN PRN Reason: Wheezing Last Admin: 12/09/16 19:13 Dose: 1.25 mg Budesonide (Pulmicort Respules) 0.5 mg INH RQ12 [facility] Last Admin: 12/11/16 07:57 Dose: 0.5 mg Famotidine (Pepcid) 20 mg PO BID [facility] Last Admin: 12/10/16 17:32 Dose: 20 mg Heparin Sodium (Porcine) (Heparin) 5,000 units SC Q8 [facility] Last Admin: 12/11/16 05:58 Dose: 5,000 units Sodium Chloride (Sodium Chloride 0.9%) 1,000 mls @ 150 mls/hr IV .Q6H40M [facility] Last Admin: 12/11/16 04:00 Dose: 150 mls/hr Ceftriaxone Sodium 1 gm/ (Sodium Chloride) 100 mls @ 100 mls/hr IVPB DAILY [facility] Last Admin: 12/10/16 10:09 Dose: 100 mls/hr Pneumococcal Polyvalent Vaccine (Pneumovax 23 Vaccine) 0.5 ml IM .ONCE ONE Stop: 12/11/16 14:01 Potassium Phos/Sodium Phos (Neutra-Phos) 1 pkt PO BIDCC [facility] Last Admin: 12/11/16 08:22 Dose: 1 pkt - Labs Labs: 12/11/16 07:15 12/11/16 07:15 - Constitutional Appears: Non-toxic, No Acute Distress - Head Exam Head Exam: ATRAUMATIC, NORMAL INSPECTION, NORMOCEPHALIC - Eye Exam Eye Exam: EOMI, Normal appearance, PERRL Pupil Exam: NORMAL ACCOMODATION - ENT Exam ENT Exam: Mucous Membranes Moist, Normal Exam - Neck Exam Neck Exam: Full ROM - Respiratory Exam Respiratory Exam: NORMAL BREATHING PATTERN. absent: Wheezes - Cardiovascular Exam Cardiovascular Exam: +S1, +S2 - GI/Abdominal Exam GI & Abdominal Exam: Soft, Normal Bowel Sounds. absent: Tenderness - Extremities Exam Extremities Exam: Full ROM, Normal Capillary Refill, Normal Inspection - Back Exam Back Exam: Full ROM. absent: CVA tenderness (L), CVA tenderness (R) - Neurological Exam Neurological Exam: Alert, Awake, Oriented x3 - Psychiatric Exam Psychiatric exam: Normal Affect, Normal Mood - Skin Skin Exam: Dry, Intact, Normal Color, Warm Assessment and Plan - Assessment and Plan (Free Text) Assessment: Pyelonephritis * Resolving, no pain reported * On admission: WBC 19.2 (recent steroid use), Febrile, Tachycardic, Diaphoretic * Tylenol prn fever * Ceftriaxone 1gm IVPB daily (started 12/07). Will transition to oral antibiotic upon discharge * CT AB&P 12/07/16: Findings consistent with left-sided pyelonephritis. Mild stranding and infiltration changes in the proximal right periureteral region likely reactive given due the patient's finding of left-sided pyelonephritis. The urinary bladder is also thick-walled appearance which may in part be due to incomplete distention all lobe muscular hypertrophy may also contribute. The cystitis must also be takes considered given the patient's finding of a left- sided pyelonephritis.Mild on bibasilar atelectasis and or scarring left greater than right. Vague ground-glass passes lingular region on could represent some atelectasis is well though early developing infiltrate not excluded. Mild fatty hepatic infiltration. * Blood cultures- no growth * Urine cultures - E.coli sensitive to Ceftriaxone. Will continue this current antibiotic * Consult to Urology Dr. Calloway. Per Urology, further urological intervention not currently warranted but patient will be assessed * Echo: 60-65 % EF, normal left ventricular wall thickness and diastolic functioning; aortic valve mildly sclerotic, trace aortic regurg, trace mitral regurg * Patient counseled on the importance of following up with medical concerns in a timely manner so as to prevent exacerbation of symptoms to critical presentation. Positive Blood cultures * Corynebacterium species.- May be contaminant as first set of blood cultures are negative. Repeat blood cultures Asthma * r/o pneumonia - No PNA on CT, stopped Azithromycin * Chest X ray: Atelectasis * CT AB&P 12/07/16: Findings consistent with left-sided pyelonephritis. Mild stranding and infiltration changes in the proximal right periureteral region likely reactive given due the patient's finding of left-sided pyelonephritis. The urinary bladder is also thick-walled appearance which may in part be due to incomplete distention all lobe muscular hypertrophy may also contribute. The cystitis must also be takes considered given the patient's finding of a left- sided pyelonephritis. Mild on bibasilar atelectasis and or scarring left greater than right. Vague ground-glass passes lingular region on could represent some atelectasis is well though early developing infiltrate not excluded. Mild fatty hepatic infiltration. * Albuterol prn * Pulmicort INH Q12 hours Prophylactic Measures * Pepcid 20mg PO BID * Heparin SC * Regular Diet <Apolinar Chino - Last Filed: 12/11/16 15:31> Objective - Vital Signs/Intake and Output Vital Signs (last 24 hours): Temp Pulse Resp BP Pulse Ox 98.1 F 73 18 106/70 96 12/11/16 07:35 12/11/16 07:35 12/11/16 07:35 12/11/16 07:35 12/11/16 07:35 Intake and Output: 12/11/16 12/11/16 06:59 18:59 Intake Total 1320 Balance 1320 - Medications Medications: Current Medications Acetaminophen (Tylenol 325mg Tab) 650 mg PO Q6 PRN PRN Reason: Fever >100.4 F Last Admin: 12/09/16 08:54 Dose: 650 mg Albuterol Sulfate (Albuterol 0.083% Inhal Amanda (2.5 Mg/3 Ml) Ud) 2.5 mg INH RQ6 PRN PRN Reason: Wheezing Last Admin: 12/11/16 07:57 Dose: 2.5 mg Albuterol Sulfate (Albuterol 0.042% Inhal Amanda (1.25mg/3ml) Ud) 1.25 mg INH RQ3 PRN PRN Reason: Wheezing Last Admin: 12/09/16 19:13 Dose: 1.25 mg Budesonide (Pulmicort Respules) 0.5 mg INH RQ12 [facility] Last Admin: 12/11/16 07:57 Dose: 0.5 mg Famotidine (Pepcid) 20 mg PO BID [facility] Last Admin: 12/11/16 10:24 Dose: 20 mg Heparin Sodium (Porcine) (Heparin) 5,000 units SC Q8 [facility] Last Admin: 12/11/16 14:33 Dose: Not Given Sodium Chloride (Sodium Chloride 0.9%) 1,000 mls @ 150 mls/hr IV .Q6H40M [facility] Last Admin: 12/11/16 15:14 Dose: Not Given Ceftriaxone Sodium 1 gm/ (Sodium Chloride) 100 mls @ 100 mls/hr IVPB DAILY [facility] Last Admin: 12/11/16 10:17 Dose: 100 mls/hr Potassium Phos/Sodium Phos (Neutra-Phos) 1 pkt PO BIDCC [facility] Last Admin: 12/11/16 08:22 Dose: 1 pkt - Labs Labs: 12/11/16 07:15 12/11/16 07:15 Attending/Attestation - Attestation I have personally seen and examined this patient.: Yes I have fully participated in the care of the patient.: Yes I have reviewed all pertinent clinical information, including history, physical exam and plan: Yes Notes (Text): 12/11/16 15:31 Patient was seen and examined at bedside with the resident We will continue antibiotics for pyelonephritis We will repeat blood cultures Discharge planning when the blood cultures are negative. I discussed the plan of care with the resident and agree with the above history and physical and assessment/plan by the resident.
[2016-12-11] MEDS ORDERED: Pneumococcal 23-Valent Vaccine IM ONE (14:00)
[2016-12-12] MEDS: Sodium Chloride 0.9% 1,000 ML IV SCH ×2 (02:00→11:25)
[2016-12-12 06:21] LABS: BASO # 0.1 K/uL (0.0-0.2); BASO % 0.9 % (0.0-2.0); EOS # 0.3 K/uL (0.0-0.7); EOS % 3.6 % (0.0-4.0); HEMATOCRIT 37.3 % (35.0-51.0); LYMPH # 2.1 K/uL (1.0-4.3); LYMPH % 28.3 % (20.0-40.0); MEAN CORPUSCULAR HEMOGLOBIN 30.5 pg (27.0-31.0); MEAN CORPUSCULAR HGB CONC 33.5 g/dL (33.0-37.0); MEAN PLATELET VOLUME 9.5 fL (7.2-11.7); MONO # 0.6 K/uL (0.0-0.8); MONO % 8.2 % (0.0-10.0); NRBC % 0.1 % (0.0-2.0); RED CELL DISTRIBUTION WIDTH 13.2 % (11.5-14.5); WHITE BLOOD COUNT 7.4 K/uL (4.8-10.8)
[2016-12-12 06:52] LABS: CHLORIDE 103 mmol/L (98-107)
[2016-12-12 06:53] LABS: POTASSIUM 4.3 mmol/L (3.6-5.2); SODIUM 138 mmol/L (132-148)
[2016-12-12 06:55] LABS: AST/SGOT 89 U/L (17-59); BILIRUBIN,TOTAL 0.5 mg/dL (0.2-1.3); CARBON DIOXIDE 27 mmol/L (22-30); GFR AFRICAN-AMERICAN > 60
[2016-12-12 06:56] LABS: ALB/GLOB RATIO 0.9 (1.0-2.1); ALKALINE PHOSPHATASE 63 U/L (38-126); ALT/SGPT 73 U/L (21-72); BLOOD UREA NITROGEN 10 mg/dL (9-20); CALCIUM 8.6 mg/dl (8.6-10.4); GLUCOSE,RANDOM 99 mg/dL (75-110); MAGNESIUM 1.8 mg/dL (1.6-2.3); PHOSPHOROUS 3.6 mg/dL (2.5-4.5)
--- NOTE | 2016-12-12 07:37 | CP.PCM.PN ---
Subjective - Date & Time of Evaluation Date of Evaluation: 12/12/16 Time of Evaluation: 06:01 - Subjective Subjective: PGY 1 Medicine Note- Dr. Chino's service Pt seen and examined in no apparent acute distress. Patient tolerating a diet well. Patient denies any abdominal pain, back pain, suprapubic or scrotal pain , headaches, subjective fevers or chills, nausea, vomiting, diarrhea, dysuria, chest pain, palpitations, hematuria, malodorous urine, urinary frequency, nocturia or constipation at this time. Objective - Vital Signs/Intake and Output Vital Signs (last 24 hours): Temp Pulse Resp BP Pulse Ox 97.4 F L 86 20 112/72 98 12/12/16 04:11 12/12/16 04:11 12/12/16 04:11 12/12/16 04:11 12/12/16 04:11 Intake and Output: 12/12/16 12/12/16 06:59 18:59 Intake Total 1320 Balance 1320 - Medications Medications: Current Medications Acetaminophen (Tylenol 325mg Tab) 650 mg PO Q6 PRN PRN Reason: Fever >100.4 F Last Admin: 12/09/16 08:54 Dose: 650 mg Albuterol Sulfate (Albuterol 0.083% Inhal Amanda (2.5 Mg/3 Ml) Ud) 2.5 mg INH RQ6 PRN PRN Reason: Wheezing Last Admin: 12/11/16 19:15 Dose: 2.5 mg Albuterol Sulfate (Albuterol 0.042% Inhal Amanda (1.25mg/3ml) Ud) 1.25 mg INH RQ3 PRN PRN Reason: Wheezing Last Admin: 12/09/16 19:13 Dose: 1.25 mg Budesonide (Pulmicort Respules) 0.5 mg INH RQ12 [facility] Last Admin: 12/11/16 19:15 Dose: 0.5 mg Famotidine (Pepcid) 20 mg PO BID [facility] Last Admin: 12/11/16 17:28 Dose: 20 mg Heparin Sodium (Porcine) (Heparin) 5,000 units SC Q8 [facility] Last Admin: 12/12/16 05:51 Dose: Not Given Sodium Chloride (Sodium Chloride 0.9%) 1,000 mls @ 150 mls/hr IV .Q6H40M [facility] Last Admin: 12/12/16 02:00 Dose: 150 mls/hr Ceftriaxone Sodium 1 gm/ (Sodium Chloride) 100 mls @ 100 mls/hr IVPB DAILY [facility] Last Admin: 12/11/16 10:17 Dose: 100 mls/hr Potassium Phos/Sodium Phos (Neutra-Phos) 1 pkt PO BIDCC [facility] Last Admin: 12/11/16 17:28 Dose: 1 pkt - Labs Labs: 12/12/16 05:21 12/12/16 05:21 - Constitutional Appears: Non-toxic, No Acute Distress - Head Exam Head Exam: ATRAUMATIC, NORMAL INSPECTION, NORMOCEPHALIC - Eye Exam Eye Exam: EOMI, Normal appearance, PERRL - ENT Exam ENT Exam: Mucous Membranes Moist, Normal Exam - Neck Exam Neck Exam: Full ROM - Respiratory Exam Respiratory Exam: Clear to Ausculation Bilateral, NORMAL BREATHING PATTERN. absent: Wheezes - Cardiovascular Exam Cardiovascular Exam: REGULAR RHYTHM, +S1, +S2 - GI/Abdominal Exam GI & Abdominal Exam: Soft, Normal Bowel Sounds - Extremities Exam Extremities Exam: Full ROM, Normal Capillary Refill - Back Exam Back Exam: Full ROM. absent: CVA tenderness (L), CVA tenderness (R) - Neurological Exam Neurological Exam: Alert, Awake, CN II-XII Intact, Oriented x3 - Psychiatric Exam Psychiatric exam: Normal Affect, Normal Mood - Skin Skin Exam: Normal Color, Warm Assessment and Plan - Assessment and Plan (Free Text) Assessment: Pyelonephritis * Resolving, no pain reported today * On admission: WBC 19.2 (recent steroid use), Febrile, Tachycardic, Diaphoretic * Tylenol prn fever * Ceftriaxone 1gm IVPB daily (started 12/07). Will transition to oral antibiotic upon discharge * CT AB&P 12/07/16: Findings consistent with left-sided pyelonephritis. Mild stranding and infiltration changes in the proximal right periureteral region likely reactive given due the patient's finding of left-sided pyelonephritis. The urinary bladder is also thick-walled appearance which may in part be due to incomplete distention all lobe muscular hypertrophy may also contribute. The cystitis must also be takes considered given the patient's finding of a left- sided pyelonephritis.Mild on bibasilar atelectasis and or scarring left greater than right. Vague ground-glass passes lingular region on could represent some atelectasis is well though early developing infiltrate not excluded. Mild fatty hepatic infiltration. * Blood cultures- no growth * Urine cultures - E.coli sensitive to Ceftriaxone. Will continue this current antibiotic * Consult to Urology Dr. Calloway. Per Urology, further urological intervention not currently indicated . * Echo: 60-65 % EF, normal left ventricular wall thickness and diastolic functioning; aortic valve mildly sclerotic, trace aortic regurg, trace mitral regurg * Patient counseled on the importance of following up with medical concerns in a timely manner so as to prevent exacerbation of symptoms to critical presentation. Positive Blood cultures * Corynebacterium species.- May be contaminant as first set of blood cultures are negative. Repeat blood cultures. Awaiting results to begin discharge planning. Transient rise in LFTs Medications verified Acetaminophen stopped at this time as patient is not in pain. Asthma * r/o pneumonia - No PNA on CT, stopped Azithromycin * Chest X ray: Atelectasis * CT AB&P 12/07/16: Findings consistent with left-sided pyelonephritis. Mild stranding and infiltration changes in the proximal right periureteral region likely reactive given due the patient's finding of left-sided pyelonephritis. The urinary bladder is also thick-walled appearance which may in part be due to incomplete distention all lobe muscular hypertrophy may also contribute. The cystitis must also be takes considered given the patient's finding of a left- sided pyelonephritis. Mild on bibasilar atelectasis and or scarring left greater than right. Vague ground-glass passes lingular region on could represent some atelectasis is well though early developing infiltrate not excluded. Mild fatty hepatic infiltration. * Albuterol prn * Pulmicort INH Q12 hours Prophylactic Measures * Pepcid 20mg PO BID * Heparin SC * Regular Diet
[2016-12-12] MEDS: Budesonide 0.5 mg/2 ml Inhal Susp UD INH SCH (07:51)
[2016-12-12] MEDS: Albuterol 0.083% Inhal Sol (2.5 mg/3 mL) UD INH PRN (07:51)
[2016-12-12 08:16] VITALS: BP 122/81; PULSE 76; RESP 18; TEMP 98.4; O2SAT 97
[2016-12-12] MEDS: Potassium & Sodium Phosphate PO SCH (08:17)
--- NOTE | 2016-12-12 14:04 | CP.PCM.DIS ---
<Nicolle Oliveroscodey - Last Filed: 12/12/16 22:44> Provider - Provider Date of Admission: 12/07/16 22:36 Attending physician: Apolinar Chino MD Consults: Dr. Calloway ( Urology) Time Spent in preparation of Discharge (in minutes): 40 Diagnosis - Discharge Diagnosis (1) Pyelonephritis Status: Acute (2) Asthma Status: Chronic Hospital Course - Lab Results Lab Results: Micro Results 12/11/16 10:55 Blood Blood Culture - Preliminary NO GROWTH AFTER 24 HOURS 12/11/16 10:16 Blood Blood Culture - Preliminary NO GROWTH AFTER 24 HOURS 12/07/16 Unknown Urine Urine Culture - Final Escherichia Coli Most Recent Lab Values WBC 7.4 K/uL (4.8-10.8) 12/12/16 05:21 RBC 4.10 Mil/uL (4.40-5.90) L 12/12/16 05:21 Hgb 12.5 g/dL (12.0-18.0) 12/12/16 05:21 Hct 37.3 % (35.0-51.0) 12/12/16 05:21 MCV 91.0 fL (80.0-94.0) 12/12/16 05:21 MCH 30.5 pg (27.0-31.0) 12/12/16 05:21 MCHC 33.5 g/dL (33.0-37.0) 12/12/16 05:21 RDW 13.2 % (11.5-14.5) 12/12/16 05:21 Plt Count 361 K/uL (130-400) 12/12/16 05:21 MPV 9.5 fL (7.2-11.7) 12/12/16 05:21 Neut % (Auto) 59.0 % (50.0-75.0) 12/12/16 05:21 Lymph % (Auto) 28.3 % (20.0-40.0) 12/12/16 05:21 Screven % (Auto) 8.2 % (0.0-10.0) 12/12/16 05:21 Eos % (Auto) 3.6 % (0.0-4.0) 12/12/16 05:21 Baso % (Auto) 0.9 % (0.0-2.0) 12/12/16 05:21 Neut # 4.4 K/uL (1.8-7.0) 12/12/16 05:21 Lymph # 2.1 K/uL (1.0-4.3) 12/12/16 05:21 Screven # 0.6 K/uL (0.0-0.8) 12/12/16 05:21 Eos # 0.3 K/uL (0.0-0.7) 12/12/16 05:21 Baso # 0.1 K/uL (0.0-0.2) 12/12/16 05:21 Neutrophils % (Manual) 90 % (50-75) H 12/08/16 05:28 Lymphocytes % (Manual) 9 % (20-40) L 12/08/16 05:28 Monocytes % (Manual) 1 % (0-10) 12/08/16 05:28 Platelet Estimate Normal (NORMAL) 12/08/16 05:28 pO2 32 mm/Hg (30-55) 12/08/16 00:54 VBG pH 7.31 (7.32-7.43) L 12/08/16 00:54 VBG pCO2 16 mmHg (40-60) L* 12/08/16 00:54 VBG HCO3 11.7 mmol/L 12/08/16 00:54 VBG Total CO2 8.6 mmol/L (22-28) L 12/08/16 00:54 VBG O2 Sat (Calc) 73.6 % (40-65) H 12/08/16 00:54 VBG Base Excess -15.5 mmol/L (0.0-2.0) L 12/08/16 00:54 VBG Potassium 1.0 mmol/L (3.6-5.2) L* 12/08/16 00:54 Sodium 155.0 mmol/l (132-148) H 12/08/16 00:54 Chloride 130.0 mmol/L (98-107) H 12/08/16 00:54 Glucose 74 mg/dl (75-110) L 12/08/16 00:54 Lactate 0.8 mmol/L (0.7-2.1) 12/08/16 00:54 Crit Value Called To Dr bautista 12/08/16 00:54 Crit Value Called By Jil bowers rt 12/08/16 00:54 Crit Value Read Back Y 12/08/16 00:54 Blood Gas Notified Time 103 12/08/16 00:54 Sodium 138 mmol/L (132-148) 12/12/16 05:21 Potassium 4.3 mmol/L (3.6-5.2) 12/12/16 05:21 Chloride 103 mmol/L (98-107) 12/12/16 05:21 Carbon Dioxide 27 mmol/L (22-30) 12/12/16 05:21 Anion Gap 12 (10-20) 12/12/16 05:21 BUN 10 mg/dL (9-20) 12/12/16 05:21 Creatinine 0.9 MG/DL (0.8-1.5) 12/12/16 05:21 Est GFR ( Amer) > 60 12/12/16 05:21 Est GFR (Non-Af Amer) > 60 12/12/16 05:21 Random Glucose 99 mg/dL (75-110) 12/12/16 05:21 Lactic Acid 1.2 mmol/L (0.7-2.1) 12/08/16 05:28 Calcium 8.6 mg/dl (8.6-10.4) 12/12/16 05:21 Phosphorus 3.6 mg/dL (2.5-4.5) 12/12/16 05:21 Magnesium 1.8 mg/dL (1.6-2.3) 12/12/16 05:21 Total Bilirubin 0.5 mg/dL (0.2-1.3) 12/12/16 05:21 AST 89 U/L (17-59) H 12/12/16 05:21 ALT 73 U/L (21-72) H D 12/12/16 05:21 Alkaline Phosphatase 63 U/L (38-126) 12/12/16 05:21 Total Protein 7.0 g/dL (6.3-8.3) 12/12/16 05:21 Albumin 3.3 g/dL (3.5-5.0) L 12/12/16 05:21 Globulin 3.7 gm/dL (2.2-3.9) 12/12/16 05:21 Albumin/Globulin Ratio 0.9 (1.0-2.1) L 12/12/16 05:21 Venous Blood Potassium 1.0 mmol/L (3.6-5.2) L* 12/08/16 00:54 Urine Color Yellow (YELLOW) 12/07/16 21:31 Urine Clarity Hazy (Clear) 12/07/16 21:31 Urine pH 5.0 (5.0-8.0) 12/07/16 21:31 Ur Specific Sharon 1.021 (1.003-1.030) 12/07/16 21:31 Urine Protein 2+ mg/dL (NEGATIVE) H 12/07/16 21:31 Urine Glucose (UA) Normal mg/dL (Normal) 12/07/16 21:31 Urine Ketones 1+ mg/dL (NEGATIVE) H 12/07/16 21:31 Urine Blood Negative (NEGATIVE) 12/07/16 21:31 Urine Nitrate Negative (NEGATIVE) 12/07/16 21:31 Urine Bilirubin Negative (NEGATIVE) 12/07/16 21:31 Urine Urobilinogen Normal mg/dL (0.2-1.0) 12/07/16 21:31 Ur Leukocyte Esterase 2+ Jed/uL (Negative) H 12/07/16 21:31 Urine WBC (Auto) 86 /hpf (0-5) H 12/07/16 21:31 Urine RBC (Auto) 15 /hpf (0-3) H 12/07/16 21:31 Ur Squamous Epith Cells < 1 /hpf (0-5) 12/07/16 21:31 Urine Bacteria Rare (<OCC) 12/07/16 21:31 HIV 1&2 Antibody Screen Negative (NEGATIVE) 12/08/16 05:28 Ur L.pneumophila Ag Negative (NEGATIVE) 12/08/16 05:28 Mycoplasma pneumon IgM Negative (NEGATIVE) 12/08/16 05:28 - Hospital Course Hospital Course: On admission: 51 year old male with a past medical history of Asthma presents to the ED for dysuria. He stated that he went to [place] recently to help his brother and because it was so dry he got an asthma exacerbation. He was seen by a doctor then and was given albuterol and oral steroids. He reports that for the past week he has had this dysuria. He denieds penile discharge. He denies seeing blood in the urine. He reports fevers and chills and states that he is sweating a lot. He admitted to some tenderness on his Left side and felt suprapubic pain earlier in the week but now this is gone. He admits to sexual acitvity with his girlfriend. He denies all other complaints. Hospital course: Patient meeting SIRS criteria on admission and a source was confirmed with positive UTI findings. CT abdomen performed with findings consistent of left- sided pyelonephritis. Considerations for urology consult given new onset and age ; however urology did not feel that there was any additional intervention on their end at this time. Patient was on ceftriaxone and symptoms improved. Patient's asthma was also managed at this time. Chest Xray ordered- No signs on pneumonia. Patient improved. Patient due for discharge on 12/11 but blood cultures were positive for corynebacterium and thus discharge planning discontinued. Repeat cultures drawn. Prelim findings negative. Final cultures to result in 24-48 hrs time. Patient cleared for discharge; however patient informed that he will be contacted if repeat cultures are positive. T Patient prescribed antibiotics with instructions as stated in discharge order.his is a brief summary of events. For complete course, refer to medical record. Discharge Exam - Head Exam Head Exam: ATRAUMATIC, NORMAL INSPECTION, NORMOCEPHALIC - Eye Exam Eye Exam: EOMI, Normal appearance Pupil Exam: NORMAL ACCOMODATION, PERRL - ENT Exam ENT Exam: Mucous Membranes Moist - Neck Exam Neck exam: Full Rom - Respiratory Exam Respiratory Exam: Clear to PA & Lateral - Cardiovascular Exam Cardiovascular Exam: +S1, +S2 - GI/Abdominal Exam GI & Abdominal Exam: Normal Bowel Sounds - Extremities Exam Extremities exam: full ROM - Back Exam Back exam: FULL ROM - Neurological Exam Neurological exam: Alert, CN II-XII Intact, Oriented x3 - Psychiatric Exam Psychiatric exam: Normal Affect - Skin Skin Exam: Normal Color Discharge Plan - Discharge Medications Prescriptions: Ciprofloxacin [Cipro] 500 mg PO BID #14 tab - Follow Up Plan Condition: GOOD Disposition: HOME/ ROUTINE Instructions: Ciprofloxacin (By mouth), Acute Pyelonephritis (DC) Additional Instructions: Patient is medically stable for discharge home. Patient should follow up with Primary Medical Doctor within one week of discharge. If patient does not have a doctor, he should call the [facility] for an appointment at [phone]. Patient to take Ciprofloxacin 500 mg twice a day for seven more days. Patient should eat a probiotic yogurt once a day on the days that he is taking the antibiotic. If symptoms return, go to the emergency room. Instructions were explained to the patient who is aware. Referrals: [facility] at [facility] [Outside] <Apolinar Chino - Last Filed: 12/13/16 15:11> Provider - Provider Date of Admission: 12/07/16 22:36 Attending physician: Apolinar Chino MD Hospital Course - Lab Results Lab Results: Micro Results 12/11/16 10:55 Blood Blood Culture - Preliminary NO GROWTH AFTER 48 HOURS 12/11/16 10:16 Blood Blood Culture - Preliminary NO GROWTH AFTER 48 HOURS 12/07/16 Unknown Urine Urine Culture - Final Escherichia Coli Most Recent Lab Values WBC 7.4 K/uL (4.8-10.8) 12/12/16 05:21 RBC 4.10 Mil/uL (4.40-5.90) L 12/12/16 05:21 Hgb 12.5 g/dL (12.0-18.0) 12/12/16 05:21 Hct 37.3 % (35.0-51.0) 12/12/16 05:21 MCV 91.0 fL (80.0-94.0) 12/12/16 05:21 MCH 30.5 pg (27.0-31.0) 12/12/16 05:21 MCHC 33.5 g/dL (33.0-37.0) 12/12/16 05:21 RDW 13.2 % (11.5-14.5) 12/12/16 05:21 Plt Count 361 K/uL (130-400) 12/12/16 05:21 MPV 9.5 fL (7.2-11.7) 12/12/16 05:21 Neut % (Auto) 59.0 % (50.0-75.0) 12/12/16 05:21 Lymph % (Auto) 28.3 % (20.0-40.0) 12/12/16 05:21 Screven % (Auto) 8.2 % (0.0-10.0) 12/12/16 05:21 Eos % (Auto) 3.6 % (0.0-4.0) 12/12/16 05:21 Baso % (Auto) 0.9 % (0.0-2.0) 12/12/16 05:21 Neut # 4.4 K/uL (1.8-7.0) 12/12/16 05:21 Lymph # 2.1 K/uL (1.0-4.3) 12/12/16 05:21 Screven # 0.6 K/uL (0.0-0.8) 12/12/16 05:21 Eos # 0.3 K/uL (0.0-0.7) 12/12/16 05:21 Baso # 0.1 K/uL (0.0-0.2) 12/12/16 05:21 Neutrophils % (Manual) 90 % (50-75) H 12/08/16 05:28 Lymphocytes % (Manual) 9 % (20-40) L 12/08/16 05:28 Monocytes % (Manual) 1 % (0-10) 12/08/16 05:28 Platelet Estimate Normal (NORMAL) 12/08/16 05:28 pO2 32 mm/Hg (30-55) 12/08/16 00:54 VBG pH 7.31 (7.32-7.43) L 12/08/16 00:54 VBG pCO2 16 mmHg (40-60) L* 12/08/16 00:54 VBG HCO3 11.7 mmol/L 12/08/16 00:54 VBG Total CO2 8.6 mmol/L (22-28) L 12/08/16 00:54 VBG O2 Sat (Calc) 73.6 % (40-65) H 12/08/16 00:54 VBG Base Excess -15.5 mmol/L (0.0-2.0) L 12/08/16 00:54 VBG Potassium 1.0 mmol/L (3.6-5.2) L* 12/08/16 00:54 Sodium 155.0 mmol/l (132-148) H 12/08/16 00:54 Chloride 130.0 mmol/L (98-107) H 12/08/16 00:54 Glucose 74 mg/dl (75-110) L 12/08/16 00:54 Lactate 0.8 mmol/L (0.7-2.1) 12/08/16 00:54 Crit Value Called To Dr bautista 12/08/16 00:54 Crit Value Called By Jil bowers rt 12/08/16 00:54 Crit Value Read Back Y 12/08/16 00:54 Blood Gas Notified Time 103 12/08/16 00:54 Sodium 138 mmol/L (132-148) 12/12/16 05:21 Potassium 4.3 mmol/L (3.6-5.2) 12/12/16 05:21 Chloride 103 mmol/L (98-107) 12/12/16 05:21 Carbon Dioxide 27 mmol/L (22-30) 12/12/16 05:21 Anion Gap 12 (10-20) 12/12/16 05:21 BUN 10 mg/dL (9-20) 12/12/16 05:21 Creatinine 0.9 MG/DL (0.8-1.5) 12/12/16 05:21 Est GFR ( Amer) > 60 12/12/16 05:21 Est GFR (Non-Af Amer) > 60 12/12/16 05:21 Random Glucose 99 mg/dL (75-110) 12/12/16 05:21 Lactic Acid 1.2 mmol/L (0.7-2.1) 12/08/16 05:28 Calcium 8.6 mg/dl (8.6-10.4) 12/12/16 05:21 Phosphorus 3.6 mg/dL (2.5-4.5) 12/12/16 05:21 Magnesium 1.8 mg/dL (1.6-2.3) 12/12/16 05:21 Total Bilirubin 0.5 mg/dL (0.2-1.3) 12/12/16 05:21 AST 89 U/L (17-59) H 12/12/16 05:21 ALT 73 U/L (21-72) H D 12/12/16 05:21 Alkaline Phosphatase 63 U/L (38-126) 12/12/16 05:21 Total Protein 7.0 g/dL (6.3-8.3) 12/12/16 05:21 Albumin 3.3 g/dL (3.5-5.0) L 12/12/16 05:21 Globulin 3.7 gm/dL (2.2-3.9) 12/12/16 05:21 Albumin/Globulin Ratio 0.9 (1.0-2.1) L 12/12/16 05:21 Venous Blood Potassium 1.0 mmol/L (3.6-5.2) L* 12/08/16 00:54 Urine Color Yellow (YELLOW) 12/07/16 21:31 Urine Clarity Hazy (Clear) 12/07/16 21:31 Urine pH 5.0 (5.0-8.0) 12/07/16 21:31 Ur Specific Sharon 1.021 (1.003-1.030) 12/07/16 21:31 Urine Protein 2+ mg/dL (NEGATIVE) H 12/07/16 21:31 Urine Glucose (UA) Normal mg/dL (Normal) 12/07/16 21:31 Urine Ketones 1+ mg/dL (NEGATIVE) H 12/07/16 21:31 Urine Blood Negative (NEGATIVE) 12/07/16 21:31 Urine Nitrate Negative (NEGATIVE) 12/07/16 21:31 Urine Bilirubin Negative (NEGATIVE) 12/07/16 21:31 Urine Urobilinogen Normal mg/dL (0.2-1.0) 12/07/16 21:31 Ur Leukocyte Esterase 2+ Jed/uL (Negative) H 12/07/16 21:31 Urine WBC (Auto) 86 /hpf (0-5) H 12/07/16 21:31 Urine RBC (Auto) 15 /hpf (0-3) H 12/07/16 21:31 Ur Squamous Epith Cells < 1 /hpf (0-5) 12/07/16 21:31 Urine Bacteria Rare (<OCC) 12/07/16 21:31 HIV 1&2 Antibody Screen Negative (NEGATIVE) 12/08/16 05:28 Ur L.pneumophila Ag Negative (NEGATIVE) 12/08/16 05:28 Mycoplasma pneumon IgM Negative (NEGATIVE) 12/08/16 05:28 Attending/Attestation - Attestation I have personally seen and examined this patient.: Yes I have fully participated in the care of the patient.: Yes I have reviewed all pertinent clinical information, including history, physical exam and plan: Yes Notes (Text): 12/13/16 15:10 Patient was seen and examined at bedside with the resident Patient is clinically improved with no complaints of burning or pain on micturition Repeat blood cultures are negative We will discharge the patient on oral antibiotics and he will follow with his PMD as outpatient. I agree with the above discharge note by the resident.
== END 2016-12-12 15:30 | disposition home or self-care (01) | DRG 690 ==
LOC: C.ER 19:08 → C.9E 22:36 → C.6T 23:17
PROVIDERS: ADMIT Internal Medicine; ATTEND Internal Medicine
DX: N12 Tubulo-interstitial nephritis, not specified as acute or chronic (principal); J98.11 Atelectasis; J45.909 Unspecified asthma, uncomplicated; D64.9 Anemia, unspecified; Z80.0 Family history of malignant neoplasm of digestive organs

== ENCOUNTER 2017-03-22 11:47 | Emergency (ER) | payer MEDICAID, OTHER ==
[2017-03-22 11:47] VITALS: BMI 23.3
[2017-03-22 12:04] VITALS: BP 119/82; PULSE 84; RESP 18; TEMP 98.2; O2SAT 98
[2017-03-22] MEDS ORDERED: Acetaminophen-Codeine 300/30 mg Tab PO STA (12:21)
--- NOTE | 2017-03-22 12:21 | C.PDOC ---
History Of Present Illness 51 yr old male presents to the ER with complaints of reoccurring bilateral lower back pain for the past 4 days. Patient states the pain radiates to bilateral buttock/posterior thighs. Patient reports the pain is made worse with sitting. Admits to taking Tylenol with limited relief. Denies trauma, injury, abdominal pain, dysuria, incontinence, weakness or numbness. RECUR B/L LB PAIN X 4 DAYS. B/L RADIATION BUTTOCK/POST THIGHS. WORSE W SITTING. NO ASSOC WEAK/NUMB. LIMITED RELIEF W TYL EXAM MILD DIST NONTOXIC BACK AROM WO DIFF. NO FOCAL TEND, SPASM. NO LS TEND NEURO INTACT SKIN NEG REMAINDER NEG Time Seen by Provider: 03/22/17 12:11 Chief Complaint (Nursing): Back Pain History Per: Patient History/Exam Limitations: no limitations Onset/Duration Of Symptoms: Days (4 days) Past Medical History Reviewed: Historical Data, Nursing Documentation, Vital Signs Vital Signs: Last Vital Signs Temp 98.2 F 03/22/17 12:03 Pulse 84 03/22/17 12:03 Resp 18 03/22/17 12:03 BP 119/82 03/22/17 12:03 Pulse Ox 98 03/22/17 12:21 - Medical History PMH: Anemia, Asthma Family History: States: No Known Family Hx - Social History Hx Tobacco Use: No Hx Alcohol Use: Yes Hx Substance Use: No - Immunization History Hx Tetanus Toxoid Vaccination: No Hx Influenza Vaccination: No Hx Pneumococcal Vaccination: No Review Of Systems Except As Marked, All Systems Reviewed And Found Negative. Gastrointestinal: Negative for: Abdominal Pain Genitourinary: Negative for: Dysuria, Incontinence Musculoskeletal: Positive for: Back Pain (Bilateral low back pain) Neurological: Negative for: Weakness, Numbness Physical Exam - Physical Exam Appears: Non-toxic, In Acute Distress (Mild) Skin: Warm, Dry, No Rash Head: Atraumatic, Normacephalic Oral Mucosa: Moist Chest: Symmetrical, No Tenderness Cardiovascular: Rhythm Regular, No Murmur Respiratory: Normal Breath Sounds, No Rales, No Rhonchi, No Stridor, No Wheezing Gastrointestinal/Abdominal: Normal Exam, Soft, No Tenderness, No Guarding, No Rebound Back: No Muscle Spasm, Other (AROM without difficulty. No focal tenderness. No LS tenderness.) Extremity: Normal ROM, No Swelling Neurological/Psych: Oriented x3, Normal Speech, Normal Motor, Normal Sensation ED Course And Treatment O2 Sat by Pulse Oximetry: 98 (RA) Pulse Ox Interpretation: Normal Medical Decision Making Medical Decision Making: PLAN: * Flexeril PO * Motrin PO * Tylenol PO * Tylenol/Codeine PO Disposition Counseled Patient/Family Regarding: Diagnosis, Need For Followup, Rx Given - Disposition Referrals: [facility] [Outside] [facility] [Outside] Disposition: HOME/ ROUTINE Disposition Time: 12:19 Condition: IMPROVED Prescriptions: Acetaminophen [Tylenol Extra Strength] 2 tab PO Q6 #30 tablet Cyclobenzaprine [Flexeril] 10 mg PO TID #15 tab Dexamethasone 12 mg PO ONCE #2 tab Naproxen 500 mg PO BID #30 tab Instructions: Sciatica (ED) Forms: [employer] (Lithuanian), Work Excuse - Clinical Impression Clinical Impression: Sciatica - Scribe Statement The provider has reviewed the documentation as recorded by the Slavaibarvin Griffin Provider Attestation: All medical record entries made by the Slavaibarvin were at my direction and personally dictated by me. I have reviewed the chart and agree that the record accurately reflects my personal performance of the history, physical exam, medical decision making, and the department course for this patient. I have also personally directed, reviewed, and agree with the discharge instructions and disposition.
[2017-03-22] MEDS ORDERED: Acetaminophen-Codeine 300/30 mg Tab PO ONE (12:32)
== END 2017-03-22 12:36 | disposition home or self-care (01) ==
LOC: C.ER 11:47
DX: M54.30 Sciatica, unspecified side (principal)

== ENCOUNTER 2017-07-26 22:37 | Emergency (ER) | payer OTHER ==
[2017-07-26 22:38] VITALS: BMI 23.3
[2017-07-26 23:10] VITALS: BP 117/77; PULSE 82; RESP 18; TEMP 97.7; O2SAT 99
[2017-07-26] MEDS ORDERED: Naproxen 550 mg Tab PO STA (23:34)
[2017-07-26] MEDS ORDERED: Naproxen 550 mg Tab PO ONE (23:41)
[2017-07-26 23:46] LABS: SQUAMOUS EPITHIAL 1 /hpf (0-5); URINE BACTERIA RARE (<OCC); URINE BILIRUBIN NEGATIVE (NEGATIVE); URINE BLOOD NEGATIVE (NEGATIVE); URINE CLARITY Clear (Clear); URINE COLOR Yellow (YELLOW); URINE GLUCOSE (UA) NORMAL (Normal); URINE LEUKOCYTE ESTERASE NEG Leu/uL (Negative); URINE NITRATE NEGATIVE (NEGATIVE); URINE PROTEIN NEGATIVE (NEGATIVE); URINE UROBILINOGEN NORMAL mg/dL (0.2-1.0)
--- NOTE | 2017-07-27 01:13 | C.PDOC ---
History Of Present Illness 51 year old male presents to the ER with a complaint of lower back pain and lower abdominal pain since last night. Patient was seen on 12/12/16 for symptoms of back pain and fever, at that time he was found to be positive for UTI and pyelonephritis. 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 Denies testicular pain, testicular swelling, recent injury, fever, dysuria, or hematuria. Time Seen by Provider: 07/26/17 23:12 Chief Complaint (Nursing): Back Pain History Per: Patient History/Exam Limitations: no limitations Onset/Duration Of Symptoms: Days Current Symptoms Are (Timing): Still Present Quality Of Discomfort: Unable To Describe Previous Symptoms: None Associated Symptoms: None Exacerbating Factor(s): Nothing Recent travel outside of the [place]: No Past Medical History Reviewed: Historical Data, Nursing Documentation, Vital Signs Vital Signs: Last Vital Signs Temp 97.7 F 07/26/17 23:06 Pulse 82 07/26/17 23:06 Resp 18 07/26/17 23:06 BP 117/77 07/26/17 23:06 Pulse Ox 99 07/27/17 01:56 - Medical History PMH: Anemia, Asthma Family History: States: Unknown Family Hx - Social History Hx Tobacco Use: No Hx Alcohol Use: Yes Hx Substance Use: No - Immunization History Hx Tetanus Toxoid Vaccination: No Hx Influenza Vaccination: No Hx Pneumococcal Vaccination: No Review Of Systems Constitutional: Negative for: Fever, Chills Gastrointestinal: Positive for: Abdominal Pain. Negative for: Nausea, Vomiting Genitourinary: Negative for: Dysuria, Hematuria Musculoskeletal: Positive for: Back Pain Physical Exam - Physical Exam Appears: Non-toxic, No Acute Distress Skin: Normal Color, Warm, Dry Head: Atraumatic, Normacephalic Eye(s): bilateral: Normal Inspection, PERRL, EOMI Oral Mucosa: Moist Neck: Normal, No Midline Cervical Tenderness, No Paracervical Tenderness, Supple Chest: Symmetrical, No Tenderness Cardiovascular: Rhythm Regular Respiratory: Normal Breath Sounds, No Rales, No Rhonchi, No Wheezing Gastrointestinal/Abdominal: Bowel Sounds (active), Soft, No Tenderness, No Guarding, No Rebound Back: Normal Inspection, No CVA Tenderness Extremity: Normal ROM, No Tenderness, No Swelling Neurological/Psych: Oriented x3, Normal Speech, Normal Motor Gait: Steady ED Course And Treatment O2 Sat by Pulse Oximetry: 99 (Room air) Pulse Ox Interpretation: Normal Medical Decision Making Medical Decision Making: Urinalysis and urine cultures ordered, UA results were negative for UTI. Naproxen administered for pain, patient reports improvement of pain. Will discharge home with Rx and instructions to follow up with PMD. On re-exam, the patient reports improvement of symptoms. Lungs are CTA, heart is RRR, abdomen is soft, non-tender and the patient is tolerating PO well. Ambulatory in the ED with steady gait. Disposition - Disposition Referrals: Non [facility] Provider, [Primary Care Provider] - Disposition: HOME/ ROUTINE Disposition Time: :11 Condition: GOOD Additional Instructions: Follow up with the medical doctor/clinic within 1-2 days without fail. Return if worsened. Prescriptions: Cyclobenzaprine [Cyclobenzaprine HCl] 10 mg PO BID #14 tab Lidocaine 5% [Lidoderm] 1 each TP DAILY #7 patch Naproxen [Naprosyn] 500 mg PO BID #20 tab Instructions: Acute Low Back Pain (ED) Forms: [employer] (Turkish) - Clinical Impression Clinical Impression: Low back pain - PA / TEACHER VOCAL / Resident Statement MD/DO has reviewed & agrees with the documentation as recorded. - Scribe Statement The provider has reviewed the documentation as recorded by the Scribarvin Belcher All medical record entries made by the Nhan were at my direction and personally dictated by me. I have reviewed the chart and agree that the record accurately reflects my personal performance of the history, physical exam, medical decision making, and the department course for this patient. I have also personally directed, reviewed, and agree with the discharge instructions and disposition.
== END 2017-07-27 01:15 | disposition home or self-care (01) ==
LOC: C.ER 22:37 → SUPCPDRO 22:37 → C.ER 07-27 01:15
DX: M54.5 Low back pain (principal)

== ENCOUNTER 2018-09-28 12:56 | Inpatient (IN) | payer OTHER ==
[2018-09-28 12:57] VITALS: BMI 23.3
--- NOTE | 2018-09-28 13:18 | C.PDOC ---
History Of Present Illness 53 yr old male w/ hx of anemia, asthma, Pyelonephritis p/w L sided back pain and dysuria . No testicular pain or penile pain. No groin ulcers or rash. Pt endorsed that he does not use condoms during sex. He notes monogamous activity with only his girlfriend and does not partake in receptive anal intercourse. He denies any constipation or dark or bloody stool. He denies any abdominal pain. He notes the back pain is left sided, without radiation, worst this morning, improved with tylenol today. He notes a fever, mild chills but no night sweats. He denies any cough. No runny nose or body aches. No other complaints. Time Seen by Provider: 09/28/18 13:18 Chief Complaint (Nursing): Male Genitourinary Past Medical History Vital Signs: Last Vital Signs Temp 100.9 F H 09/28/18 13:05 Pulse 127 H 09/28/18 13:05 Resp 17 09/28/18 13:05 BP 139/71 09/28/18 13:05 Pulse Ox 98 09/28/18 13:05 - Medical History PMH: Anemia, Asthma Denies: Chronic Kidney Disease Family History: States: Unknown Family Hx - Social History Hx Tobacco Use: No Hx Alcohol Use: Yes Hx Substance Use: No - Immunization History Hx Tetanus Toxoid Vaccination: No Hx Influenza Vaccination: No Hx Pneumococcal Vaccination: No Review Of Systems Constitutional: Positive for: Fever. Negative for: Chills, Weakness, Malaise, Weight loss Eyes: Negative for: Pain, Vision Change ENT: Negative for: Ear Pain, Ear Discharge, Nose Pain, Nose Discharge, Nose Congestion, Mouth Pain, Mouth Swelling, Throat Pain Cardiovascular: Negative for: Chest Pain, Palpitations, Orthopnea, Paroxysmal Noc. Dyspnea, Edema, Light Headedness Respiratory: Negative for: Cough, Shortness of Breath, SOB with Excertion, Pleuritic Pain Gastrointestinal: Negative for: Nausea, Vomiting, Abdominal Pain, Diarrhea, Constipation, Melena, Hematochezia, Hematemesis, Rectal Pain Genitourinary: Positive for: Dysuria, Penile Discharge (x1 last week). Negative for: Frequency, Incontinence, Hematuria, Rash, Penile Pain Musculoskeletal: Negative for: Neck Pain, Shoulder Pain, Arm Pain, Back Pain, Hand Pain, Leg Pain Skin: Negative for: Rash, Lesions, Jaundice Neurological: Negative for: Weakness, Numbness, Altered Mental Status, Headache Psych: Negative for: Anxiety, Depression, Psychosis Physical Exam - Physical Exam Appears: Well, Non-toxic, No Acute Distress Skin: Normal Color, Warm Head: Atraumatic, Normacephalic Eye(s): bilateral: Normal Inspection, PERRL, EOMI Ear(s): Bilateral: Normal Nose: Normal, No Flaring, No Discharge Oral Mucosa: Moist Tongue: Normal Appearing Lips: Normal Appearing Teeth: Normal Dentition Gingiva: Normal Appearing Throat: Normal, No Erythema, No Exudate Neck: Normal, Normal ROM, Supple, Other (no meningeal signs) Lymphatic: Normal Exam, No Adenopathy Chest: Symmetrical Cardiovascular: Other (tachy ) Respiratory: Normal Breath Sounds, No Rales, No Rhonchi, No Stridor, No Wheezing Gastrointestinal/Abdominal: Normal Exam, Soft, No Tenderness, No Mass, No Distention, No Guarding Back: Normal Inspection, CVA Tenderness (L), No Vertebral Tenderness Male Genital: Normal Inspection, No Testicular Tenderness, No Testicular Swelling, No Inguinal Tenderness, No Inguinal Swelling, No Scrotal Swelling Extremity: Normal ROM, No Calf Tenderness Extremity: Bilateral: Atraumatic Neurological/Psych: Oriented x3, Normal Speech, Normal Cognition, Normal Cranial Nerves, Normal Motor Gait: Steady ED Course And Treatment - Laboratory Results Result Diagrams: 09/28/18 13:55 09/28/18 13:55 O2 Sat by Pulse Oximetry: 98 Medical Decision Making Medical Decision Makin yr old male w/ hx of asthma, anemia, pyelo p/w penile d/c x1 (yellowish, foul smelling), back pain, and dysuria. Likely STD vs UTI vs pyelo. No indication of cauda equina: no midline tenderness, no trauma, no enuresis / encoparesis or saddle anesthesia. Given tachy, febrile but overall well appearing will rx STD and await urine. Informed pt to get partner tested and to use safe sex practices including condoms. 1505 CT resulted: largely unremarkable UA w/ UTI, likely pyelo given back pain: cipro ordered WBC 22k, pt initially tachy on arrival- code sepsis called given source. Lactic WNL. Fluid bolus, ABX ordered. Previous micro: Ecoli, susceptible to cipro STD abx given Paged hospitalist telephone lineman for admission: appreciate consult w/ Dr. Padilla: to admit to her service pt in NAD, agreeable to plan. Disposition - Disposition Disposition: HOSPITALIZED Disposition Time: 15:09 Condition: GOOD Forms: [facility] (Chinese) - Clinical Impression Clinical Impression: UTI (urinary tract infection), Sepsis, Screen for STD (sexually transmitted disease), Pyelonephritis
[2018-09-28] MEDS ORDERED: Sodium Chloride 0.9% 1,000 ML IV ONE ×2 (13:35→15:01)
[2018-09-28] MEDS ORDERED: cefTRIAXone (Rocephin) 250 mg Inj IM STA (13:35)
[2018-09-28 14:02] LABS: VENOUS BLOOD GAS BASE EXCESS 1.7 mmol/L (0.0-2.0); VENOUS BLOOD GAS PCO2 38 mmHg (40-60); VENOUS BLOOD GAS PO2 25 mm/Hg (30-55); VENOUS BLOOD PH 7.44 (7.32-7.43)
[2018-09-28 14:03] LABS: BASO # 0.2 K/uL (0.0-0.2); LYMPH # 0.5 K/uL (1.0-4.3); LYMPH % 2.1 % (20.0-40.0); MEAN CELL VOLUME 93.3 fL (80.0-94.0); MEAN CORPUSCULAR HEMOGLOBIN 31.7 pg (27.0-31.0); MONO # 1.6 K/uL (0.0-0.8); MONO % 6.9 % (0.0-10.0); NEUT # 20.7 K/uL (1.8-7.0); PLATELET COUNT 158 K/uL (130-400); RBC 4.74 Mil/uL (4.40-5.90); RED CELL DISTRIBUTION WIDTH 13.2 % (11.5-14.5); WHITE BLOOD COUNT 22.9 K/uL (4.8-10.8)
[2018-09-28 14:12] LABS: SQUAMOUS EPITHIAL < 1 /hpf (0-5); URINE BILIRUBIN NEGATIVE (NEGATIVE); URINE BLOOD 1+ (NEGATIVE); URINE CLARITY Hazy (Clear); URINE COLOR Yellow (YELLOW); URINE GLUCOSE (UA) NORMAL (Normal); URINE LEUKOCYTE ESTERASE 2+ Leu/uL (Negative); URINE PROTEIN NEGATIVE (NEGATIVE); URINE UROBILINOGEN NORMAL mg/dL (0.2-1.0)
[2018-09-28 14:18] LABS: ALB/GLOB RATIO 1.2 (1.0-2.1); ALBUMIN 4.4 g/dL (3.5-5.0); ALT/SGPT 7 U/L (21-72); AST/SGOT 23 U/L (17-59); BLOOD UREA NITROGEN 15 mg/dL (9-20); CALCIUM 9.7 mg/dl (8.6-10.4); GFR NON-AFRICAN AMERICAN > 60
[2018-09-28] MEDS ORDERED: Ciprofloxacin 400mg/200ml D5W 400 MG/200 ML BAG IVPB STA (15:00)
--- NOTE | 2018-09-28 15:03 | CT ---
Date of service: 09/28/2018 PROCEDURE: CT Abdomen and Pelvis without intravenous contrast HISTORY: L flank pain, painful urination COMPARISON: 12/08/2016 TECHNIQUE: Without contrast.. Contrast dose: 0 Radiation dose: Total exam DLP = 252.56 mGy-cm. This CT exam was performed using one or more of the following dose reduction techniques: Automated exposure control, adjustment of the mA and/or kV according to patient size, and/or use of iterative reconstruction technique. FINDINGS: LOWER THORAX: Unremarkable. LIVER: Unremarkable. No gross lesion or ductal dilatation. GALLBLADDER AND BILE DUCTS: Unremarkable. PANCREAS: Unremarkable. No gross lesion or ductal dilatation. SPLEEN: Unremarkable. ADRENALS: Unremarkable. No mass. KIDNEYS AND URETERS: Punctate 1-2 mm calcification in the upper pole left kidney, possibly cortical. No obstructing calculus. No mass or hydronephrosis. VASCULATURE: Unremarkable. No aortic aneurysm. No aortic atherosclerotic calcification or mural plaque present. BOWEL: Unremarkable. No obstruction. No gross mural thickening. APPENDIX: Unremarkable. Normal appendix. PERITONEUM: Unremarkable. No free fluid. No free air. LYMPH NODES: Unremarkable. No enlarged lymph nodes. BLADDER: Unremarkable. REPRODUCTIVE: Normal prostate BONES: No acute fracture. OTHER FINDINGS: None. IMPRESSION: No acute abnormality. Punctate 1-2 mm calcification in the upper pole left kidney, possibly cortical versus collecting system but nonobstructing. No additional abnormality.
[2018-09-28] MEDS ORDERED: Ciprofloxacin 400mg/200ml D5W 400 MG/200 ML BAG IVPB ONE (15:10)
[2018-09-28 15:13] LABS: BANDS 5 % (0-2); LYMPHOCYTE 4 % (20-40); MONOCYTE 5 % (0-10); NEUTROPHIL 86 % (50-75); TOTAL CELLS COUNTED 100
[2018-09-28 15:15] LABS: PLATELET ESTIMATE NORMAL (NORMAL)
[2018-09-28 15:16] LABS: ANISOCYTOSIS SLIGHT; LARGE PLATELETS PRESENT
[2018-09-28 15:18] LABS: POLYCHROMIC SLIGHT
--- NOTE | 2018-09-28 15:35 | CP.PCM.HP ---
History of Present Illness - History of Present Illness History of Present Illness: History and Physical - Hospitalist service Patient is a 53 year old male with past medical history of asthma and chronic right shoulder pain who presented to the emergency department for left low back pain and dysuria that started this morning. Patient states that he was admitted to [facility] a few years ago for similar complaint and was found to have pylenonephritis. He states that two weeks ago he noticed that his urine had an odor. This morning when he woke up he started experiencing intense non-radiating left lower back pain and dysuria. He also states that he was experiencing fevers and chills at home prior to arrival. He also reports having two episodes of watery diarrhea that started yesterday. At this time he states that the low back pain has improved. He admits to having a headache, denies dizziness, cp, pal pitations, sob. ED course: Rocephin 250mg IM, Azithomycin 1000mg PO x1, Cipro 400mg IVPB, NS bolus x 2, Tylenol 650mg x 1, Motrin 600mg x 1 PMD: Dr Mateo Mendez Allergies: NKDA Medications: Ibuprofen, Ventolin Medical History: Asthma, Chronic right shoulder pain (tendon injury) Surgical History: Denies Social History: Denies tobacco use; admits to drinking occasionally on the weekends, denies drug use Family History: Mother - [employer] Cancer? colostomy, Father - DM Sexual History: Denies any history of STDs in the past Present on Admission - Present on Admission Any Indicators Present on Admission: No Past Patient History - Infectious Disease Hx of Infectious Diseases: None - Past Medical History & Family History Past Medical History?: Yes - Past Social History Smoking Status: Never Smoked - CARDIAC Hx Cardiac Disorders: No - PULMONARY Hx Asthma: Yes - NEUROLOGICAL Hx Neurological Disorder: No - HEENT Hx HEENT Problems: No - RENAL Hx Chronic Kidney Disease: No - ENDOCRINE/METABOLIC Hx Endocrine Disorders: No - HEMATOLOGICAL/ONCOLOGICAL Hx Anemia: Yes - INTEGUMENTARY Hx Dermatological Problems: No - MUSCULOSKELETAL/RHEUMATOLOGICAL Hx Musculoskeletal Disorders: No Hx Falls: No - GASTROINTESTINAL Hx Gastrointestinal Disorders: No - PSYCHIATRIC Hx Substance Use: No - SURGICAL HISTORY Hx Surgeries: No - ANESTHESIA Hx Anesthesia: No Meds Allergies/Adverse Reactions: Allergies Allergy/AdvReac Type Severity Reaction Status Date / Time No Known Allergies Allergy Verified 09/28/18 13:08 Physical Exam - Constitutional Appears: Non-toxic, No Acute Distress - Head Exam Head Exam: NORMAL INSPECTION, NORMOCEPHALIC - Eye Exam Eye Exam: EOMI, Normal appearance - ENT Exam ENT Exam: Mucous Membranes Dry - Neck Exam Neck exam: Positive for: Full Rom - Respiratory Exam Respiratory Exam: Clear to Auscultation Bilateral, NORMAL BREATHING PATTERN. absent: Decreased Breath Sounds, Rales, Rhonchi, Wheezes - Cardiovascular Exam Cardiovascular Exam: Tachycardia, REGULAR RHYTHM, +S1, +S2 - GI/Abdominal Exam GI & Abdominal Exam: Soft, Tenderness (LLQ tenderness). absent: Guarding, Rebound, Rigid - Exam Exam: absent: Circumcision, Scrotal Swelling, Testicular Tenderness, Uretheral Discharge Additional comments: No penial tenderness or erythema or discharge noted - Extremities Exam Extremities exam: Positive for: normal inspection, pedal pulses present. Negative for: calf tenderness, joint swelling - Back Exam Back exam: NORMAL INSPECTION. absent: CVA tenderness (L), CVA tenderness (R) - Neurological Exam Neurological exam: Alert, CN II-XII Intact, Oriented x3 - Psychiatric Exam Psychiatric exam: Normal Affect, Normal Mood - Skin Skin Exam: Dry, Normal Color, Warm Results - Vital Signs Recent Vital Signs: Last Vital Signs Temp 101.5 F H 09/28/18 15:16 Pulse 112 H 09/28/18 15:16 Resp 18 09/28/18 15:16 BP 108/58 L 09/28/18 15:16 Pulse Ox 98 09/28/18 15:16 - Labs Result Diagrams: 09/28/18 13:55 09/28/18 13:55 Labs: Laboratory Results - last 24 hr 09/28/18 09/28/18 09/28/18 13:55 13:55 13:55 WBC 22.9 H D RBC 4.74 Hgb 15.0 Hct 44.2 MCV 93.3 D MCH 31.7 H MCHC 34.0 RDW 13.2 Plt Count 158 MPV 11.0 Neut % (Auto) 90.0 H Lymph % (Auto) 2.1 L Petroleum % (Auto) 6.9 Eos % (Auto) 0.0 Baso % (Auto) 1.0 Neut # (Auto) 20.7 H Lymph # (Auto) 0.5 L Petroleum # (Auto) 1.6 H Eos # (Auto) 0.0 Baso # (Auto) 0.2 Neutrophils % (Manual) 86 H Band Neutrophils % 5 H Lymphocytes % (Manual) 4 L Monocytes % (Manual) 5 Platelet Estimate Normal Large Platelets Present Polychromasia Slight Anisocytosis (manual) Slight Macrocytosis (manual) Slight pO2 VBG pH VBG pCO2 VBG HCO3 VBG Total CO2 VBG O2 Sat (Calc) VBG Base Excess VBG Potassium Glucose Lactate Sodium 133 Potassium 3.7 Chloride 100 Carbon Dioxide 25 Anion Gap 12 BUN 15 Creatinine 1.0 Est GFR ( Amer) > 60 Est GFR (Non-Af Amer) > 60 Random Glucose 141 H D Calcium 9.7 Total Bilirubin 1.4 H AST 23 ALT 7 L D Alkaline Phosphatase 85 Total Protein 8.1 Albumin 4.4 Globulin 3.7 Albumin/Globulin Ratio 1.2 Venous Blood Potassium Urine Color Yellow Urine Clarity Hazy Urine pH 5.0 Ur Specific Mcbh [place] 1.018 Urine Protein Negative Urine Glucose (UA) Normal Urine Ketones Negative Urine Blood 1+ H Urine Nitrate Negative Urine Bilirubin Negative Urine Urobilinogen Normal Ur Leukocyte Esterase 2+ H Urine WBC (Auto) 88 H Urine RBC (Auto) 3 Ur Squamous Epith Cells < 1 09/28/18 13:58 WBC RBC Hgb Hct MCV MCH MCHC RDW Plt Count MPV Neut % (Auto) Lymph % (Auto) Petroleum % (Auto) Eos % (Auto) Baso % (Auto) Neut # (Auto) Lymph # (Auto) Petroleum # (Auto) Eos # (Auto) Baso # (Auto) Neutrophils % (Manual) Band Neutrophils % Lymphocytes % (Manual) Monocytes % (Manual) Platelet Estimate Large Platelets Polychromasia Anisocytosis (manual) Macrocytosis (manual) pO2 25 L VBG pH 7.44 H VBG pCO2 38 L VBG HCO3 24.9 VBG Total CO2 27.0 VBG O2 Sat (Calc) 57.1 VBG Base Excess 1.7 VBG Potassium 3.3 L Glucose 134 H Lactate 2.1 Sodium 135.0 Potassium Chloride 103.0 Carbon Dioxide Anion Gap BUN Creatinine Est GFR ( Amer) Est GFR (Non-Af Amer) Random Glucose Calcium Total Bilirubin AST ALT Alkaline Phosphatase Total Protein Albumin Globulin Albumin/Globulin Ratio Venous Blood Potassium 3.3 L Urine Color Urine Clarity Urine pH Ur Specific Mcbh [place] Urine Protein Urine Glucose (UA) Urine Ketones Urine Blood Urine Nitrate Urine Bilirubin Urine Urobilinogen Ur Leukocyte Esterase Urine WBC (Auto) Urine RBC (Auto) Ur Squamous Epith Cells Assessment & Plan - Assessment and Plan (Free Text) Assessment: Sepsis 2/2 to UTI, possible early Pyelonephritis -Tmax 101.5 in the ED -Leukocytosis 22.6 on admission with left sift -Code sepsis was called, Received Rocephin 250mg IM, Azithromax 1000mg, Ciprofloxacin 400mg IVPB -UA showed +1 blood, +2 leukocyte esterase, WBC 88 -Antibiotics: Ciprofloxacin 400mg Q12H IVPB -Toradol 30mg Q6H prn pain, Tylenol 650mg PO Q6H prn fever -Continue IV fluid hydration -F/U urine cultures, blood cultures, lactic acid, procalcitonin, UDS -F/U GC/Chlamydia, HIV 1+2 ab, HSV 1+2 IgM, RPR Imaging: -CT abd/pelvis showed No acute abnormality. Punctate 1-2 mm calcification in the upper pole left kidney, possibly cortical versus collecting system but nonobstructing. No additional abnormality (see full report). Elevated Serum glucose -F/U Hemoglobin A1C Tachycardia -Likely secondary to sepsis -EKG showed tachycardia with RBBB (unchanged from previous EKG) -Troponin negative x 1 -CXR ordered Chronic Right shoulder pain -MRI upper extremity : 1. Foot in thickness tear supraspinatus tendon with proxy 1 cm retraction from the rupture site. No muscle atrophy related. Degenerative tendinosis is seen at the infraspinatus tendon. 2. Prominent acromioclavicular joint degenerative arthrosis. 3. Trace subacromial subdeltoid bursitis History of Asthma -Well controlled GI/DVT ppx: -Protonix 40mg IVP daily -SCDs (patient is refusing chemical ppx despite being educated on the use) Plan discussed with Dr Tarcie Canela DO PGY-2
[2018-09-28 16:57] LABS: VENOUS BLOOD GAS BASE EXCESS -2.8 mmol/L (0.0-2.0); VENOUS BLOOD GAS PCO2 32 mmHg (40-60); VENOUS BLOOD GAS PO2 100 mm/Hg (30-55); VENOUS BLOOD PH 7.42 (7.32-7.43)
[2018-09-28] MEDS: Sodium Chloride 0.9% 1,000 ML IV SCH ×2 (17:00→23:28)
[2018-09-28] MEDS ORDERED: Saccharomyces Boulardi 250 mg Cap PO SCH (18:00)
--- NOTE | 2018-09-28 19:24 | PCM.SEPTIC ---
Sepsis Progress Note - Reassessment Type Date of Evaluation: 09/28/18 Time of Evaluation: 19:01 Reassessment Type: Non-invasive reassessment - Non Invasive Reassessment Were the most recent vital sign reviewed: Yes Vital Sign (Latest): Temp Pulse Resp BP Pulse Ox 98.6 F 96 H 20 105/67 96 09/28/18 17:00 09/28/18 17:00 09/28/18 17:00 09/28/18 17:00 09/28/18 17:00 Cardiovascular: Yes: Regular Rate, Rhythm Respiratory: Yes: Normal Breath Sounds Capillary Refill: Normal (Less than 2 sec) Pulses: Normal Radial, Normal Dorsalis Pedis, Normal Posterior Tibialis Skin: Normal Color, Warm, Dry
[2018-09-28 22:16] LABS: BARBITURATES, UR NEGATIVE (NEGATIVE); BENZODIAZEPINES, UR NEGATIVE (NEGATIVE); OPIATES, UR NEGATIVE (NEGATIVE); PHENCYCLIDINE, UR NEGATIVE (NEGATIVE)
[2018-09-28] MEDS: Piperacillin/Tazobact 3.375 GM in Sodium Chloride 100 ML IVPB SCH (22:33)
[2018-09-28] MEDS: Multiple Vitamins Tab PO SCH (22:33)
[2018-09-29 00:19] VITALS: RESP 20
[2018-09-29] MEDS ORDERED: Ciprofloxacin 400mg/200ml D5W 400 MG/200 ML BAG IVPB SCH (03:00)
[2018-09-29] MEDS: Piperacillin/Tazobact 3.375 GM in Sodium Chloride 100 ML IVPB SCH ×2 (03:17→09:51)
[2018-09-29] MEDS: Sodium Chloride 0.9% 1,000 ML IV SCH ×3 (05:27→19:00)
[2018-09-29 06:41] LABS: BASO % 0.1 % (0.0-2.0); LYMPH # 0.9 K/uL (1.0-4.3); LYMPH % 2.7 % (20.0-40.0); MEAN CELL VOLUME 92.8 fL (80.0-94.0); MEAN CORPUSCULAR HEMOGLOBIN 30.6 pg (27.0-31.0); MEAN PLATELET VOLUME 10.5 fL (7.2-11.7); MONO % 5.9 % (0.0-10.0); NEUT # 30.5 K/uL (1.8-7.0); NEUT % 91.3 % (50.0-75.0); PLATELET COUNT 127 K/uL (130-400); RED CELL DISTRIBUTION WIDTH 13.4 % (11.5-14.5); WHITE BLOOD COUNT 33.4 K/uL (4.8-10.8)
[2018-09-29 06:48] LABS: ALB/GLOB RATIO 1.1 (1.0-2.1); ALBUMIN 3.2 g/dL (3.5-5.0); ALT/SGPT 17 U/L (21-72); AST/SGOT 16 U/L (17-59); BLOOD UREA NITROGEN 17 mg/dL (9-20); CALCIUM 8.5 mg/dl (8.6-10.4); GFR NON-AFRICAN AMERICAN 58
[2018-09-29 06:59] LABS: HEMOGLOBIN 12.5 g/dL (12.0-18.0)
--- NOTE | 2018-09-29 08:11 | CP.PCM.PN ---
<Shaquille Shaw - Last Filed: 09/29/18 15:54> Subjective - Date & Time of Evaluation Date of Evaluation: 09/29/18 Time of Evaluation: 07:30 - Subjective Subjective: Medicine progress note for Dr. Padilla Pt seen and examined at bedside. Pt with fever last night, 102.0 tmax oral. Pt is complaining of some dizziness at this time, but denies headache, lightheadedness, blurry vision. Dizziness is described as a sensation of spin liza. He had 3 episodes of diarrhea between yesterday and this morning. Endorses suprapubic tenderness. Denies chest pain, n/v, hematochezia, melena, hematuria, penile discharge, back pain. States dysuria has resolved. Objective - Vital Signs/Intake and Output Vital Signs (last 24 hours): Temp Pulse Resp BP Pulse Ox 99.5 F 111 H 20 104/65 96 09/29/18 00:17 09/29/18 00:17 09/29/18 00:17 09/29/18 00:17 09/29/18 00:17 Intake and Output: 09/29/18 09/29/18 06:59 18:59 Intake Total 1440 Balance 1440 - Medications Medications: Current Medications Acetaminophen (Tylenol 325mg Tab) 650 mg PO Q6 PRN PRN Reason: Fever >100.4 F Last Admin: 09/28/18 21:43 Dose: 650 mg Sodium Chloride (Sodium Chloride 0.9%) 1,000 mls @ 150 mls/hr IV .Q6H40M [facility] Last Admin: 09/29/18 05:27 Dose: 150 mls/hr Piperacillin Sod/Tazobactam (Sod 3.375 gm/ Sodium Chloride) 100 mls @ 200 mls/hr IVPB Q6H [facility]; Protocol Last Admin: 09/29/18 03:17 Dose: 200 mls/hr Ketorolac Tromethamine (Toradol) 30 mg IVP Q6 PRN PRN Reason: Pain, severe (8-10) Last Admin: 09/28/18 21:45 Dose: 30 mg Multivitamins (Hexavitamin) 1 tab PO DAILY [facility] Last Admin: 09/28/18 22:33 Dose: 1 tab Saccharomyces Boulardii (Florastor) 250 mg PO BID [facility] Last Admin: 09/28/18 18:17 Dose: 250 mg - Labs Labs: 09/29/18 06:20 09/29/18 06:20 - Additional Findings Additional findings: - Constitutional Appears: Non-toxic, No Acute Distress - Head Exam Head Exam: NORMAL INSPECTION, NORMOCEPHALIC - Eye Exam Eye Exam: EOMI, Normal appearance - ENT Exam ENT Exam: Mucous Membranes Dry - Neck Exam Neck exam: Positive for: Full Rom - Respiratory Exam Respiratory Exam: Clear to Auscultation Bilateral, NORMAL BREATHING PATTERN. absent: Decreased Breath Sounds, Rales, Rhonchi, Wheezes - Cardiovascular Exam Cardiovascular Exam: Tachycardia, REGULAR RHYTHM, +S1, +S2 - GI/Abdominal Exam GI & Abdominal Exam: Soft, Tenderness (minimal LLQ tenderness, mild suprapubic tenderness). absent: Guarding, Rebound, Rigid - Exam Exam: (+) testicular tenderness, right greater than left, (+) mildy enlarged spermatic cord with tenderness, (-) erythema, (-) urethral discharge, (+) cremasteric reflex, (-) tenderness of the penis, (-) circumcision. - Extremities Exam Extremities exam: Positive for: normal inspection, pedal pulses present. Negative for: calf tenderness, joint swelling - Back Exam Back exam: NORMAL INSPECTION. absent: CVA tenderness (L), CVA tenderness (R) - Neurological Exam Neurological exam: Alert, CN II-XII Intact, Oriented x3. 5/5 strength in upper and lower extremities bilaterally. normal heel to veronica. - Psychiatric Exam Psychiatric exam: Normal Affect, Normal Mood - Skin Skin Exam: Dry, Normal Color, Warm Assessment and Plan - Assessment and Plan (Free Text) Assessment: Sepsis 2/2 to UTI, possible early Pyelonephritis * UA showed +1 blood, +2 leukocyte esterase, WBC 88 * Tmax 102.0F oral, 09/28/18 * CT abd/pelvis showed No acute abnormality. Punctate 1-2 mm calcification in the upper pole left kidney, possibly cortical versus collecting system but nonobstructing. No additional abnormality (see full report). * Leukocytosis 22.6 on admission. Lactate 2.1 increased to 2.2 during day of admission * Code sepsis was called, Received Rocephin 250mg IM, Azithromax 1000mg, Ciprofloxacin 400mg IVPB * Increased to 33.4 today, but lactate improved to 1.1 * procalcitonin is 11.23 09/29 * Infectious disease, Dr. Krishnamurthy, consulted. * Antibiotics: Ciprofloxacin 400mg Q12H IVPB advanced to Meropenem 1g IVPB Q8 as per ID * Toradol 30mg Q6H prn pain, Tylenol 650mg PO Q6H prn fever * Continue IV fluid hydration * UCx 09/28 prelim shows gram negative rods * HIV 1/2 Ab, Hepatitis panel is negative; UDS is negative * Urology, Dr. Casas, consulted * Testicular US 09/29: no evidence for testicular mass, torsion, or epididymo- orchitis. Bilateral small hydroceles. * F/U GC/Chlamydia, HSV 1+2 IgM, RPR Tachycardia * Likely secondary to sepsis * EKG showed tachycardia with RBBB (unchanged from previous EKG) * Troponin negative x 3 * CXR shows minor left basilar atelectasis and/or scarring. Hypomagnesemia * 1.4 today, repleted with MgSulfate 2g IVPB * Continue to monitor and replete as needed Impaired glucose tolerance * HgbA1c is 5.9 * Pt educated on diet and exercise, and negative effects of uncontrolled diabetes. Chronic Right shoulder pain * MRI upper extremity : 1. Foot in thickness tear supraspinatus tendon with proxy 1 cm retraction from the rupture site. No muscle atrophy related. De generative tendinosis is seen at the infraspinatus tendon. 2. Prominent acromioclavicular joint degenerative arthrosis. 3. Trace subacromial subdeltoid bursitis History of Asthma * Well controlled * Continue to monitor GI/DVT ppx: * Protonix 40mg IVP daily * SCDs (patient is refusing chemical ppx despite being educated on the use) * lactobacillus 1 tab po BID <Evonne Padilla V - Last Filed: 09/30/18 15:26> Objective - Vital Signs/Intake and Output Vital Signs (last 24 hours): Temp Pulse Resp BP Pulse Ox 98.6 F 95 H 20 122/78 95 09/30/18 08:00 09/30/18 08:00 09/30/18 08:00 09/30/18 08:00 09/30/18 08:00 Intake and Output: 09/30/18 09/30/18 06:59 18:59 Intake Total 3280 Balance 3280 - Medications Medications: Current Medications Acetaminophen (Tylenol 325mg Tab) 650 mg PO Q6 PRN PRN Reason: Fever >100.4 F Last Admin: 09/30/18 12:50 Dose: 650 mg Heparin Sodium (Porcine) (Heparin) 5,000 units SC Q12 [facility] Sodium Chloride (Sodium Chloride 0.9%) 1,000 mls @ 150 mls/hr IV .Q6H40M [facility] Last Admin: 09/30/18 13:54 Dose: 150 mls/hr Meropenem 1 gm/ Sodium (Chloride) 100 mls @ 100 mls/hr IVPB Q8H [facility]; Protocol Last Admin: 09/30/18 12:42 Dose: 100 mls/hr Lactobacillus Acidophilus (Lactobacillus) 1 cap PO BID [facility] Last Admin: 09/30/18 09:10 Dose: 1 cap Multivitamins (Hexavitamin) 1 tab PO DAILY [facility] Last Admin: 09/30/18 09:10 Dose: 1 tab - Labs Labs: 09/30/18 07:13 09/30/18 07:13 Attending/Attestation - Attestation I have personally seen and examined this patient.: Yes I have fully participated in the care of the patient.: Yes I have reviewed all pertinent clinical information, including history, physical exam and plan: Yes Notes (Text): This is late computer entry fro 09/29/18. Patient seen, examined and case discussed with day-time resident. Patient seen at bedside. Patient noted swelling over the testicles, suprapubic tenderness on exam and warm to touch. Overnight, patient's antibiotic changed from Ciprofloxacin to Zosyn; infectious disease consulted changed to Meropenem. Will f/u blood cultures; lactic acid improved. Urology consulted given tenderness to testicles; ordered for testicular US. Assessment/Plan 1. Sepsis Epididymitis Pyleonephritis Assessment/Plan * Criteria: 102.0F, leukocytosis, suspected epididymitis and pyleonepritis * Code sepsis was called 09/28/18, Received Rocephin 250mg IM, Azithromax 1000mg, Ciprofloxacin 400mg IVPB * Infectious Disease (Dr. Krishnamurthy) on case help appreciated. * Urology (Dr. Casas) on case help appreciated * CT abd/pelvis showed No acute abnormality. Punctate 1-2 mm calcification in the upper pole left kidney, possibly cortical versus collecting system but nonobstructing. No additional abnormality (see full report). * IV abx: Meropenem 1gram IV Q8H (active since ) * Bacid 1 tab PO BID * NS 150cc/hr * Tylenol 650mg PO Q6H prn fever T>100.4F * UCx 09/28 prelim shows gram negative rods * Blood culture (09/28/18): * Blood culture (09/29/18): * Testicular US 09/29: no evidence for testicular mass, torsion, or epididymo- orchitis. Bilateral small hydroceles. * F/U GC/Chlamydia, HSV 1+2 IgM, RPR 2. Tachycardia Assessment/Plan * Likely secondary to sepsis, fever * EKG showed tachycardia with RBBB (unchanged from previous EKG) * Troponin negative x 3 * CXR shows minor left basilar atelectasis and/or scarring 3. Hypomagnesemia (chronic) Assessment/Plan * 1.4 today, repleted with MgSulfate 2g IVPB * Continue to monitor and replete as needed 4. Impaired glucose tolerance Assessment/Plan * HgbA1c is 5.9 * Pt educated on diet and exercise, and negative effects of uncontrolled diabetes. 5. Chronic Right shoulder pain (chronic) Assessment/Plan * MRI upper extremity : 1. Foot in thickness tear supraspinatus tendon with proxy 1 cm retraction from the rupture site. No muscle atrophy related. Degenerative tendinosis is seen at the infraspinatus tendon. 2. Prominent acromioclavicular joint degenerative arthrosis. 3. Trace subacromial subdeltoid bursitis (05/2017) 6. History of Asthma * Well controlled * Continue to monitor 7. GI/DVT ppx: * Protonix 40mg IVP daily * SCDs (patient is refusing chemical ppx despite being educated on the use) * lactobacillus 1 tab po BID * IV Hydration
[2018-09-29 08:54] LABS: HEPATITIS B SURFACE AG Negative (NEGATIVE)
[2018-09-29 08:58] LABS: BANDS 8 % (0-2); LYMPHOCYTE 2 % (20-40); MONOCYTE 6 % (0-10); NEUTROPHIL 84 % (50-75); PLATELET ESTIMATE SLIGHTLY DECREASED (NORMAL); TOTAL CELLS COUNTED 100
[2018-09-29 08:59] LABS: HEPATITIS A IGM NEGATIVE (NEGATIVE); HEPATITIS B CORE AB NEGATIVE (NEGATIVE)
[2018-09-29] MEDS ORDERED: Sodium Chloride 0.9% 1,000 ML IV ONE ×3 (09:01→21:10)
[2018-09-29 09:11] LABS: HEPATITIS C ANTIBODY NEGATIVE (NEGATIVE)
--- NOTE | 2018-09-29 09:22 | CARD ---
APPROVED REPORT Date of service: 09/28/2018 EKG Measurement Heart [id number] NM [id number] <Conclusion> Sinus tachycardia Right bundle branch block Abnormal ECG
--- NOTE | 2018-09-29 09:26 | PCM.SEPTIC ---
Sepsis Progress Note - Reassessment Type Date of Evaluation: 09/29/18 Time of Evaluation: 21:30 Reassessment Type: Non-invasive reassessment (Code sepsis called for fevr of 102, repeat lactic acid of 2.2, and tachycardia. Abx switched to zosyn, added multivitamin and repeated cultures) - Non Invasive Reassessment Were the most recent vital sign reviewed: Yes Vital Sign (Latest): Temp Pulse Resp BP Pulse Ox 98.9 F 109 H 20 98/62 L 96 09/29/18 08:29 09/29/18 08:29 09/29/18 08:29 09/29/18 08:29 09/29/18 08:29 Cardiovascular: Yes: Tachycardia Respiratory: Yes: Normal Breath Sounds. No: Crackles, Rales, Rhonchi Capillary Refill: Normal (Less than 2 sec) Pulses: Normal Radial, Normal Dorsalis Pedis Skin: Other (hot to the touch) - Invasive Reassessment (complete 2 of 4) Was a Central Venous Pressure Measurement obtained within 6 Hours after the presentation of septic shock: No Was a central venous oxygen measurement obtained within 6 hours after the presentation of septic shock: No Was a bedside cardiovascular ultrasound performed within 6 hours after the presentation of septic shock: No Was a passive leg raise performed or was a fluid challenge performed within 6 hrs of the initial fluid bolus: No Passive Leg Raise Result: Not Applicable Fluid Challenge performed: No
--- NOTE | 2018-09-29 09:45 | RAD ---
Date of service: 09/28/2018 HISTORY: sepsis COMPARISON: Comparison made with prior CT chest dated 12/08/2016. TECHNIQUE: 1 view obtained. FINDINGS: LUNGS: Mild left basilar atelectasis and/or scarring. PLEURA: No significant pleural effusion identified, no pneumothorax apparent. CARDIOVASCULAR: No aortic atherosclerotic calcification present. Normal cardiac size. No pulmonary vascular congestion. OSSEOUS STRUCTURES: No significant abnormalities. VISUALIZED UPPER ABDOMEN: Normal. OTHER FINDINGS: None. IMPRESSION: Minor left basilar atelectasis and or scarring
[2018-09-29] MEDS: Lactobacillus Acidophilus 500 MU Cap PO SCH ×2 (09:50→17:42)
[2018-09-29] MEDS: Multiple Vitamins Tab PO SCH (09:50)
--- NOTE | 2018-09-29 11:50 | CP.PCM.CON ---
History of Present Illness - History of Present Illness History of Present Illness: 53 year old male presented to the emergency department for left low back pain and dysuria Two weeks ago he noticed that his urine had an odor. Then he started experiencing intense non-radiating left lower back pain and dysuria as w ell as fevers and chills at home He was treated appropriately for STD and then started on Zosyn for severe sepsis Urine growing gram neg rods to be I D"d Allergies: NKDA Medications: Ibuprofen, Ventolin Medical History: Asthma, Chronic right shoulder pain (tendon injury) Surgical History: Denies Social History: Denies tobacco use; admits to drinking occasionally on the weekends, denies drug use Family History: Mother - MANAGER [employer] Cancer? colostomy, Father - DM Sexual History: Denies any history of STDs in the past Review of Systems - Review of Systems All systems: reviewed and no additional remarkable complaints except - Constitutional Constitutional: As Per HPI - EENT Eyes: absent: As Per HPI, Blind Spots, Blurred Vision, Change in Vision, Dec reased Night Vision, Diplopia, Discharge, Dry Eye, Exophthalmos, Floaters, Irritation, Itchy Eyes, Loss of Peripheral Vision, Pain, Photophobia, Requires Corrective Lenses, Sees Flashes, Spots in Vision, Tunnel Vision, Other Visual Disturbances, Loss of Vision, Other Ears: absent: As Per HPI, Decreased Hearing, Ear Discharge, Ear Pain, Tinnitus, Abnormal Hearing, Disequilibrium, Dizziness, Other Nose/Mouth/Throat: absent: As Per HPI, Epistaxis, Nasal Congestion, Nasal Discharge, Nasal Obstruction, Nasal Trauma, Nose Pain, Post Nasal Drip, Sinus Pain, Sinus Pressure, Bleeding Gums, Change in Voice, Dental Pain, Dry Mouth, Dysphagia, Halitosis, Hoarsness, Lip Swelling, Mouth Lesions, Mouth Pain, Odynophagia, Sore Throat, Throat Swelling, Tongue Swelling, Facial Pain, Neck Pain, Neck Mass, Other - Cardiovascular Cardiovascular: absent: As Per HPI, Acrocyanosis, Chest Pain, Chest Pain at Rest, Chest Pain with Activity, Claudication, Diaphoresis, Dyspnea, Dyspnea on Exertion, Edema, Irregular Heart Rhythm, Pain Radiating to Arm/Neck/Jaw, Leg Edema, Leg Ulcers, Lightheadedness, Orthopnea, Palpitations, Paroxysmal Nocturnal Dyspnea, Pedal Edema, Radiating Pain, Rapid Heart Rate, Slow Heart Rate, Syncope, Other - Respiratory Respiratory: absent: As Per HPI, Cough, Dyspnea, Hemoptysis, Dyspnea on Exertion, Wheezing, Snoring, Stridor, Pain on Inspiration, Chest Congestion, Excessive Mucous Production, Change in Mucous Color, Pain with Coughing, Other - Gastrointestinal Gastrointestinal: absent: As Per HPI, Abdominal Pain, Belching, Bloating, Change in Bowel Habits, Change in Stool Character, Coffee Ground Emesis, Constipation, Cramping, Diarrhea, Dyspepsia, Dysphagia, Early Satiety, Excessive Flatus, Fecal Incontinence, Heartburn, Hematemesis, Hematochezia, Loose Stools, Melena, Nausea, Odynophagia, Temesmus, Vomiting, Other - Genitourinary Genitourinary: As Per HPI - Musculoskeletal Musculoskeletal: absent: As Per HPI, Abnormal Gait, Arthralgias, Atrophy, Back Pain, Deformity, Joint Swelling, Limited Range of Motion, Loss of Height, Muscle Cramps, Muscle Weakness, Myalgias, Neck Pain, Numbness, Radiating Pain into Limb, Stiffness, Tingling, Other - Integumentary Integumentary: absent: As Per HPI, Acne, Alopecia, Bleeding Lesions, Change in Hair, Change in Nails, Change in Pigmentation, Changing Lesions, Dry Skin, Erythema, Furuncle, Hirsutism, Lesions, New Lesions, Non-Healing Lesions, Photosensitivity, Pruritus, Rash, Skin Pain, Skin Ulcer, Sores, Striae, Swelling, Unusual Bruising, Wounds, Jaundice, Other - Neurological Neurological: absent: As Per HPI, Abnormal Gait, Abnormal Hearing, Abnormal Movements, Abnormal Speech, Behavioral Changes, Burning Sensations, Confusion, Convulsions, Disequilibrium, Dizziness, Numbness, Focal Weakness, Frequent Falls, Headaches, Lack of Coordination, Loss of Vision, Memory Loss, Paresthesias, Radicular Pain, Restless Legs, Sensory Deficit, Syncope, Tingling, Tremor, Vertigo, Weakness, Other Visual Disturbances, Other - Psychiatric Psychiatric: absent: As Per HPI, Abnormal Sleep Pattern, Anhedonia, Anxiety, Auditory Hallucinations, Behavioral Changes, Change in Appetite, Change in Libido, Confusion, Depression, Difficulty Concentrating, Hallucinations, Homicidal Ideation, Hopelessness, Irritability, Memory Loss, Mood Swings, Panic Attacks, Paranoia, Suicidal Ideation, Visual Hallucinations, Tactile Hallucinations, Other - Endocrine Endocrine: absent: As Per HPI, Change in Body Appearance, Change in Libido, Cold Intolorance, Deepening of Voice, Excessive Sweating, Fatigue, Flushing, Heat Intolorance, Increase in Ring/Shoe/Hat Size, Palpitations, Polydipsia, Polyphagia, Polyuria, Other - Hematologic/Lymphatic Hematologic: absent: As Per HPI, Easy Bleeding, Easy Bruising, Lymphadenopathy, Other Past Patient History - Infectious Disease Hx of Infectious Diseases: None - Past Medical History & Family History Past Medical History?: Yes - Past Social History Smoking Status: Never Smoked - CARDIAC Hx Cardiac Disorders: No - PULMONARY Hx Asthma: Yes - NEUROLOGICAL Hx Neurological Disorder: No - HEENT Hx HEENT Problems: No - RENAL Hx Chronic Kidney Disease: No - ENDOCRINE/METABOLIC Hx Endocrine Disorders: No - HEMATOLOGICAL/ONCOLOGICAL Hx Anemia: Yes - INTEGUMENTARY Hx Dermatological Problems: No - MUSCULOSKELETAL/RHEUMATOLOGICAL Hx Musculoskeletal Disorders: Yes Hx Falls: No Other/Comment: R shoulder Pain - GASTROINTESTINAL Hx Gastrointestinal Disorders: No - PSYCHIATRIC Hx Substance Use: No - SURGICAL HISTORY Hx Surgeries: No - ANESTHESIA Hx Anesthesia: No Meds Allergies/Adverse Reactions: Allergies Allergy/AdvReac Type Severity Reaction Status Date / Time No Known Allergies Allergy Verified 09/28/18 13:08 - Medications Medications: Current Medications Acetaminophen (Tylenol 325mg Tab) 650 mg PO Q6 PRN PRN Reason: Fever >100.4 F Last Admin: 09/28/18 21:43 Dose: 650 mg Sodium Chloride (Sodium Chloride 0.9%) 1,000 mls @ 150 mls/hr IV .Q6H40M CELESTINO Last Admin: 09/29/18 05:27 Dose: 150 mls/hr Piperacillin Sod/Tazobactam (Sod 3.375 gm/ Sodium Chloride) 100 mls @ 200 mls/hr IVPB Q6H CELESTINO; Protocol Last Admin: 09/29/18 09:51 Dose: 200 mls/hr Vancomycin/Sodium Chloride (Vancomycin 1 Gm/Ns 200 Ml) 1 gm in 200 mls @ 133.333 mls/hr IVPB ONCE ONE; Protocol Stop: 09/29/18 13:59 Sodium Chloride (Sodium Chloride 0.9%) 1,000 mls @ 1,000 mls/hr IV .Q1H ONE Stop: 09/29/18 12:46 Lactobacillus Acidophilus (Lactobacillus) 1 cap PO BID CELESTINO Last Admin: 09/29/18 09:50 Dose: 1 cap Multivitamins (Hexavitamin) 1 tab PO DAILY [facility] Last Admin: 09/29/18 09:50 Dose: 1 tab Physical Exam - Constitutional Appears: No Acute Distress - Head Exam Head Exam: ATRAUMATIC, NORMAL INSPECTION, NORMOCEPHALIC - Eye Exam Eye Exam: EOMI, Normal appearance, PERRL Pupil Exam: NORMAL ACCOMODATION, PERRL - ENT Exam ENT Exam: Mucous Membranes Moist, Normal Exam - Neck Exam Neck exam: Positive for: Normal Inspection - Respiratory Exam Respiratory Exam: Clear to Auscultation Bilateral, NORMAL BREATHING PATTERN - Cardiovascular Exam Cardiovascular Exam: REGULAR RHYTHM - GI/Abdominal Exam GI & Abdominal Exam: Normal Bowel Sounds, Soft. absent: Tenderness - Rectal Exam Rectal Exam: Deferred - Exam Exam: Scrotal Swelling, Testicular Tenderness - Extremities Exam Extremities exam: Positive for: normal inspection - Back Exam Back exam: NORMAL INSPECTION - Neurological Exam Neurological exam: Alert, CN II-XII Intact, Normal Gait, Oriented x3, Reflexes Normal - Psychiatric Exam Psychiatric exam: Normal Affect, Normal Mood - Skin Skin Exam: Dry, Intact, Normal Color, Warm Results - Vital Signs Recent Vital Signs: Last Vital Signs Temp 98.9 F 09/29/18 08:29 Pulse 109 H 09/29/18 08:29 Resp 20 09/29/18 08:29 BP 98/62 L 09/29/18 08:29 Pulse Ox 96 09/29/18 08:29 - Labs Result Diagrams: 09/29/18 06:20 09/29/18 06:20 Labs: Laboratory Results - last 24 hr 09/28/18 09/28/18 09/28/18 13:55 13:55 13:55 WBC 22.9 H D RBC 4.74 Hgb 15.0 Hct 44.2 MCV 93.3 D MCH 31.7 H MCHC 34.0 RDW 13.2 Plt Count 158 MPV 11.0 Neut % (Auto) 90.0 H Lymph % (Auto) 2.1 L Bent % (Auto) 6.9 Eos % (Auto) 0.0 Baso % (Auto) 1.0 Neut # (Auto) 20.7 H Lymph # (Auto) 0.5 L Bent # (Auto) 1.6 H Eos # (Auto) 0.0 Baso # (Auto) 0.2 Neutrophils % (Manual) 86 H Band Neutrophils % 5 H Lymphocytes % (Manual) 4 L Monocytes % (Manual) 5 Platelet Estimate Normal Large Platelets Present RBC Morphology Polychromasia Slight Anisocytosis (manual) Slight Macrocytosis (manual) Slight pO2 VBG pH VBG pCO2 VBG HCO3 VBG Total CO2 VBG O2 Sat (Calc) VBG Base Excess VBG Potassium Glucose Lactate Sodium 133 Potassium 3.7 Chloride 100 Carbon Dioxide 25 Anion Gap 12 BUN 15 Creatinine 1.0 Est GFR ( Amer) > 60 Est GFR (Non-Af Amer) > 60 Random Glucose 141 H D Hemoglobin A1c Lactic Acid Calcium 9.7 Phosphorus Magnesium Total Bilirubin 1.4 H AST 23 ALT 7 L D Alkaline Phosphatase 85 Total Protein 8.1 Albumin 4.4 Globulin 3.7 Albumin/Globulin Ratio 1.2 Procalcitonin Venous Blood Potassium Urine Color Yellow Urine Clarity Hazy Urine pH 5.0 Ur Specific [place] 1.018 Urine Protein Negative Urine Glucose (UA) Normal Urine Ketones Negative Urine Blood 1+ H Urine Nitrate Negative Urine Bilirubin Negative Urine Urobilinogen Normal Ur Leukocyte Esterase 2+ H Urine WBC (Auto) 88 H Urine RBC (Auto) 3 Ur Squamous Epith Cells < 1 Urine Opiates Screen Urine Methadone Screen Ur Barbiturates Screen Ur Phencyclidine Scrn Ur Amphetamines Screen U Benzodiazepines Scrn U Oth Cocaine Metabols U Cannabinoids Screen Hepatitis A IgM Ab Hep Bs Antigen Hep B Core IgM Ab Hepatitis C Antibody HIV 1&2 Antibody Screen 09/28/18 09/28/18 09/28/18 13:58 16:50 20:21 WBC RBC Hgb Hct MCV MCH MCHC RDW Plt Count MPV Neut % (Auto) Lymph % (Auto) Bent % (Auto) Eos % (Auto) Baso % (Auto) Neut # (Auto) Lymph # (Auto) Bent # (Auto) Eos # (Auto) Baso # (Auto) Neutrophils % (Manual) Band Neutrophils % Lymphocytes % (Manual) Monocytes % (Manual) Platelet Estimate Large Platelets RBC Morphology Polychromasia Anisocytosis (manual) Macrocytosis (manual) pO2 25 L 100 H VBG pH 7.44 H 7.42 VBG pCO2 38 L 32 L VBG HCO3 24.9 22.8 VBG Total CO2 27.0 21.8 L VBG O2 Sat (Calc) 57.1 98.9 H VBG Base Excess 1.7 -2.8 L VBG Potassium 3.3 L 3.3 L Glucose 134 H 96 Lactate 2.1 1.8 Sodium 135.0 136.0 Potassium Chloride 103.0 112.0 H Carbon Dioxide Anion Gap BUN Creatinine Est GFR ( Amer) Est GFR (Non-Af Amer) Random Glucose Hemoglobin A1c Lactic Acid 2.2 H Calcium Phosphorus Magnesium Total Bilirubin AST ALT Alkaline Phosphatase Total Protein Albumin Globulin Albumin/Globulin Ratio Procalcitonin Venous Blood Potassium 3.3 L 3.3 L Urine Color Urine Clarity Urine pH Ur Specific [place] Urine Protein Urine Glucose (UA) Urine Ketones Urine Blood Urine Nitrate Urine Bilirubin Urine Urobilinogen Ur Leukocyte Esterase Urine WBC (Auto) Urine RBC (Auto) Ur Squamous Epith Cells Urine Opiates Screen Urine Methadone Screen Ur Barbiturates Screen Ur Phencyclidine Scrn Ur Amphetamines Screen U Benzodiazepines Scrn U Oth Cocaine Metabols U Cannabinoids Screen Hepatitis A IgM Ab Hep Bs Antigen Hep B Core IgM Ab Hepatitis C Antibody HIV 1&2 Antibody Screen 09/28/18 09/29/18 09/29/18 21:47 06:20 06:20 WBC 33.4 H RBC 4.10 L Hgb 12.5 D Hct 38.1 MCV 92.8 MCH 30.6 MCHC 33.0 RDW 13.4 Plt Count 127 L D MPV 10.5 Neut % (Auto) 91.3 H Lymph % (Auto) 2.7 L Bent % (Auto) 5.9 Eos % (Auto) 0.0 Baso % (Auto) 0.1 Neut # (Auto) 30.5 H Lymph # (Auto) 0.9 L Bent # (Auto) 2.0 H Eos # (Auto) 0.0 Baso # (Auto) 0.0 Neutrophils % (Manual) 84 H Band Neutrophils % 8 H Lymphocytes % (Manual) 2 L Monocytes % (Manual) 6 Platelet Estimate Slightly decreased L Large Platelets RBC Morphology Normal Polychromasia Anisocytosis (manual) Macrocytosis (manual) pO2 VBG pH VBG pCO2 VBG HCO3 VBG Total CO2 VBG O2 Sat (Calc) VBG Base Excess VBG Potassium Glucose Lactate Sodium 138 Potassium 4.1 Chloride 110 H Carbon Dioxide 23 Anion Gap 9 L BUN 17 Creatinine 1.3 Est GFR ( Amer) > 60 Est GFR (Non-Af Amer) 58 Random Glucose 118 H Hemoglobin A1c Lactic Acid Calcium 8.5 L Phosphorus 2.7 Magnesium 1.4 L Total Bilirubin 2.1 H AST 16 L D ALT 17 L D Alkaline Phosphatase 69 Total Protein 6.2 L Albumin 3.2 L D Globulin 3.0 Albumin/Globulin Ratio 1.1 Procalcitonin Venous Blood Potassium Urine Color Urine Clarity Urine pH Ur Specific [place] Urine Protein Urine Glucose (UA) Urine Ketones Urine Blood Urine Nitrate Urine Bilirubin Urine Urobilinogen Ur Leukocyte Esterase Urine WBC (Auto) Urine RBC (Auto) Ur Squamous Epith Cells Urine Opiates Screen Negative Urine Methadone Screen Negative Ur Barbiturates Screen Negative Ur Phencyclidine Scrn Negative Ur Amphetamines Screen Negative U Benzodiazepines Scrn Negative U Oth Cocaine Metabols Negative U Cannabinoids Screen Negative Hepatitis A IgM Ab Hep Bs Antigen Hep B Core IgM Ab Hepatitis C Antibody HIV 1&2 Antibody Screen 09/29/18 09/29/18 09/29/18 06:20 06:20 06:20 WBC RBC Hgb Hct MCV MCH MCHC RDW Plt Count MPV Neut % (Auto) Lymph % (Auto) Bent % (Auto) Eos % (Auto) Baso % (Auto) Neut # (Auto) Lymph # (Auto) Bent # (Auto) Eos # (Auto) Baso # (Auto) Neutrophils % (Manual) Band Neutrophils % Lymphocytes % (Manual) Monocytes % (Manual) Platelet Estimate Large Platelets RBC Morphology Polychromasia Anisocytosis (manual) Macrocytosis (manual) pO2 VBG pH VBG pCO2 VBG HCO3 VBG Total CO2 VBG O2 Sat (Calc) VBG Base Excess VBG Potassium Glucose Lactate Sodium Potassium Chloride Carbon Dioxide Anion Gap BUN Creatinine Est GFR ( Amer) Est GFR (Non-Af Amer) Random Glucose Hemoglobin A1c 5.9 Lactic Acid Calcium Phosphorus Magnesium Total Bilirubin AST ALT Alkaline Phosphatase Total Protein Albumin Globulin Albumin/Globulin Ratio Procalcitonin 11.23 H Venous Blood Potassium Urine Color Urine Clarity Urine pH Ur Specific [place] Urine Protein Urine Glucose (UA) Urine Ketones Urine Blood Urine Nitrate Urine Bilirubin Urine Urobilinogen Ur Leukocyte Esterase Urine WBC (Auto) Urine RBC (Auto) Ur Squamous Epith Cells Urine Opiates Screen Urine Methadone Screen Ur Barbiturates Screen Ur Phencyclidine Scrn Ur Amphetamines Screen U Benzodiazepines Scrn U Oth Cocaine Metabols U Cannabinoids Screen Hepatitis A IgM Ab Hep Bs Antigen Hep B Core IgM Ab Hepatitis C Antibody HIV 1&2 Antibody Screen Negative 09/29/18 06:20 WBC RBC Hgb Hct MCV MCH MCHC RDW Plt Count MPV Neut % (Auto) Lymph % (Auto) Bent % (Auto) Eos % (Auto) Baso % (Auto) Neut # (Auto) Lymph # (Auto) Bent # (Auto) Eos # (Auto) Baso # (Auto) Neutrophils % (Manual) Band Neutrophils % Lymphocytes % (Manual) Monocytes % (Manual) Platelet Estimate Large Platelets RBC Morphology Polychromasia Anisocytosis (manual) Macrocytosis (manual) pO2 VBG pH VBG pCO2 VBG HCO3 VBG Total CO2 VBG O2 Sat (Calc) VBG Base Excess VBG Potassium Glucose Lactate Sodium Potassium Chloride Carbon Dioxide Anion Gap BUN Creatinine Est GFR ( Amer) Est GFR (Non-Af Amer) Random Glucose Hemoglobin A1c Lactic Acid Calcium Phosphorus Magnesium Total Bilirubin AST ALT Alkaline Phosphatase Total Protein Albumin Globulin Albumin/Globulin Ratio Procalcitonin Venous Blood Potassium Urine Color Urine Clarity Urine pH Ur Specific [place] Urine Protein Urine Glucose (UA) Urine Ketones Urine Blood Urine Nitrate Urine Bilirubin Urine Urobilinogen Ur Leukocyte Esterase Urine WBC (Auto) Urine RBC (Auto) Ur Squamous Epith Cells Urine Opiates Screen Urine Methadone Screen Ur Barbiturates Screen Ur Phencyclidine Scrn Ur Amphetamines Screen U Benzodiazepines Scrn U Oth Cocaine Metabols U Cannabinoids Screen Hepatitis A IgM Ab Negative Hep Bs Antigen Negative Hep B Core IgM Ab Negative Hepatitis C Antibody Negative HIV 1&2 Antibody Screen Assessment & Plan (1) Sepsis Status: Acute (2) UTI (urinary tract infection) Status: Acute - Assessment and Plan (Free Text) Assessment: 53 yo male with severe sepsis and UTI scrotal US neg for abscess, torsion cultures show gram neg rods to be identified- Has hx of pyelonephritis in the pastI In view of this should have complete eval Will start Merrem pending results of cultures
[2018-09-29] MEDS ORDERED: Vancomycin 1 gm/NS 200 ml 1 GM/200 ML BAG IVPB ONE (12:30)
[2018-09-29] MEDS: Meropenem 1 GM in Sodium Chloride 0.9% 100 ML IVPB SCH ×2 (14:23→21:10)
--- NOTE | 2018-09-29 15:40 | US ---
Date of service: 09/29/2018 HISTORY: scrotal tenderness, wth inflammation TECHNIQUE: Realtime sonography through the scrotum with color and doppler flow. COMPARISON: None Available. FINDINGS: RIGHT TESTICLE: Measures 4.5 x 2.2 x 3.3 cm. Normal echotexture and flow. RIGHT EPIDIDYMIS: Epididymal head measures 1.0 x 0.7 x 1.0 cm. Grossly unremarkable appearance with normal flow. LEFT TESTICLE: Measures 4.6 x 2.2 x 3.1 cm. Normal echotexture and flow. LEFT EPIDIDYMIS: Epididymal head measures 1.0 x 0.7 x 1.4 cm. Grossly unremarkable appearance with normal flow. HYDROCELE: There are bilateral small hydroceles. VARICOCELE: None. OTHER FINDINGS: None. IMPRESSION: 1. No evidence for testicular mass, torsion or epididymo -orchitis. 2. Bilateral small hydroceles.
[2018-09-29] MEDS: Magnesium Sulfate 1 gm in D5W 1 GM/100 ML BAG IVPB SCH ×2 (16:35→17:00)
[2018-09-30] MEDS: Sodium Chloride 0.9% 1,000 ML IV SCH ×5 (01:30→21:09)
[2018-09-30] MEDS: Meropenem 1 GM in Sodium Chloride 0.9% 100 ML IVPB SCH ×3 (05:06→21:08)
[2018-09-30 07:24] LABS: BASO # 0.1 K/uL (0.0-0.2); BASO % 0.2 % (0.0-2.0); EOS # 0.1 K/uL (0.0-0.7); EOS % 0.4 % (0.0-4.0); HEMOGLOBIN 11.5 g/dL (12.0-18.0); LYMPH % 3.9 % (20.0-40.0); MEAN CELL VOLUME 93.2 fL (80.0-94.0); MEAN CORPUSCULAR HEMOGLOBIN 31.5 pg (27.0-31.0); MEAN CORPUSCULAR HGB CONC 33.8 g/dL (33.0-37.0); MONO # 1.4 K/uL (0.0-0.8); MONO % 5.5 % (0.0-10.0); NEUT # 22.9 K/uL (1.8-7.0); PLATELET COUNT 117 K/uL (130-400); RBC 3.65 Mil/uL (4.40-5.90); RED CELL DISTRIBUTION WIDTH 13.6 % (11.5-14.5); WHITE BLOOD COUNT 25.4 K/uL (4.8-10.8)
[2018-09-30 07:45] LABS: ALB/GLOB RATIO 0.9 (1.0-2.1); ALBUMIN 2.9 g/dL (3.5-5.0); ALT/SGPT 8 U/L (21-72); AST/SGOT 19 U/L (17-59); BLOOD UREA NITROGEN 9 mg/dL (9-20); GFR NON-AFRICAN AMERICAN > 60
--- NOTE | 2018-09-30 07:52 | CON ---
DATE: 09/29/2018 COMPREHENSIVE UROLOGIC CONSULTATION TIME OF CONSULTATION: Roughly 6:52 p.m. REASON FOR CONSULTATION: Scrotal cellulitis and epididymitis. BRIEF HISTORY: The patient is a 53-year-old male who presents with a history of intermittent dysuria associated with right testicular pain which began yesterday morning 09/28/2018, eventually requiring him to come to the [facility] Emergency Room. The patient had a similar episode which was much worse a few years ago, but he delayed coming to the hospital at that time and the condition was much worse at that time. His pain is improving today at this hour on IV antibiotics. He was treated with ciprofloxacin and now on meropenem and also was previously on Rocephin. The patient denies a prior history of any sexually transmitted diseases. PAST MEDICAL HISTORY: He has a past medical history of asthma and chronic right shoulder pain. He also has a previous history of pyelonephritis, and he also has some low back pain which now has improved. SOCIAL HISTORY: He has no history of any tobacco use, and he is a social drinker. MEDICATIONS: Include ibuprofen and Ventolin inhaler. ALLERGIES: NO KNOWN ALLERGIES TO ANY MEDICATIONS. FAMILY HISTORY: His mother is alive with gynecologic cancer and has a diverting colostomy. Father has diabetes mellitus. PHYSICAL EXAMINATION: VITAL SIGNS: Today 09/29/2018, temperature is 99.3, pulse is 81, blood pressure is 100/64, respiratory rate 20, O2 sat on room air 97%. GENERAL: The patient is a well-developed, well-nourished male. He is alert, oriented. HEENT: Grossly within normal limits. NECK: Supple. Thyroid not palpable. ABDOMEN: Soft, not distended, nontender. No CVA tenderness. No suprapubic tenderness. GENITALIA: The patient does not have any cellulitis at this time. He does have a slightly tender right epididymis consistent with epididymitis. EXTREMITIES: He has full range of motion of both upper and lower extremities without limitations. RECTAL EXAMINATION: Normal rectal tone without fluctuance or masses. Prostate is average in size, smooth, symmetrical, nontender without nodules or induration with a palpable median sulcus. LABORATORY DATA: His blood culture shows no growth after 24 hours and his urine culture shows positive Gram-negative rods. His laboratory evaluation shows a markedly elevated white count of 33.4 with a hemoglobin of 12.5 and hematocrit 38.1, platelet count of 127,000 which is low. His chem profile shows a sodium 138, potassium 4.1, chloride 110, CO2 of 23, BUN and creatinine 17 and 1.3 respectively with a GFR of 68. Hemoglobin A1c was 5.9. Lactic acid was now 1.1. Calcium 8.5, phosphorus 2.7, magnesium 1.4, total bilirubin 2.1, AST 16, ALT 17, alkaline phosphatase 69. Urinalysis shows the color was yellow, clarity was hazy, pH 5, specific gravity 1.018, protein negative, glucose normal, ketones negative, blood 1+, nitrite negative, bilirubin negative, leukocyte esterase 2+ positive, 88 wbc's, and 3 rbc's per high power field. DIAGNOSTIC IMPRESSION: Right epididymitis. PLAN: Continue treating the patient with IV antibiotics. Alfa Casas MD
[2018-09-30 08:18] LABS: BANDS 6 % (0-2); LYMPHOCYTE 2 % (20-40); MONOCYTE 6 % (0-10); NEUTROPHIL 86 % (50-75); PLATELET ESTIMATE SLIGHTLY DECREASED (NORMAL); TOTAL CELLS COUNTED 100
[2018-09-30] MEDS: Multiple Vitamins Tab PO SCH (09:10)
[2018-09-30] MEDS: Lactobacillus Acidophilus 500 MU Cap PO SCH ×2 (09:10→17:26)
--- NOTE | 2018-09-30 10:22 | CP.PCM.PN ---
<Kerwin Shawy - Last Filed: 09/30/18 14:11> Subjective - Date & Time of Evaluation Date of Evaluation: 09/30/18 Time of Evaluation: 10:15 - Subjective Subjective: Medicine progress note for Dr. Padilla Pt seen and examined at bedside. No acute events overnight. Reports resolution of dizziness, diarrhea. Continues to have suprapubic discomfort on when he pushes on his lower abdomen. Denies fever, chills, chest pain, sob, n/v/d, hematochezia, melena, hematuria, penile discharge, back pain, dysuria. Objective - Vital Signs/Intake and Output Vital Signs (last 24 hours): Temp Pulse Resp BP Pulse Ox 98.6 F 95 H 20 122/78 95 09/30/18 08:00 09/30/18 08:00 09/30/18 08:00 09/30/18 08:00 09/30/18 08:00 Intake and Output: 09/30/18 09/30/18 06:59 18:59 Intake Total 3280 Balance 3280 - Medications Medications: Current Medications Acetaminophen (Tylenol 325mg Tab) 650 mg PO Q6 PRN PRN Reason: Fever >100.4 F Last Admin: 09/30/18 06:55 Dose: 650 mg Sodium Chloride (Sodium Chloride 0.9%) 1,000 mls @ 150 mls/hr IV .Q6H40M [facility] Last Admin: 09/30/18 08:58 Dose: Not Given Meropenem 1 gm/ Sodium (Chloride) 100 mls @ 100 mls/hr IVPB Q8H [facility]; Protocol Last Admin: 09/30/18 05:06 Dose: 100 mls/hr Lactobacillus Acidophilus (Lactobacillus) 1 cap PO BID [facility] Last Admin: 09/30/18 09:10 Dose: 1 cap Multivitamins (Hexavitamin) 1 tab PO DAILY [facility] Last Admin: 09/30/18 09:10 Dose: 1 tab - Labs Labs: 09/30/18 07:13 09/30/18 07:13 - Additional Findings Additional findings: - Constitutional Appears: Non-toxic, No Acute Distress - Head Exam Head Exam: NORMAL INSPECTION, NORMOCEPHALIC - Eye Exam Eye Exam: EOMI, Normal appearance - ENT Exam ENT Exam: Mucous Membranes Moist - Neck Exam Neck exam: Positive for: Full Rom - Respiratory Exam Respiratory Exam: Clear to Auscultation Bilateral, NORMAL BREATHING PATTERN. absent: Decreased Breath Sounds, Rales, Rhonchi, Wheezes - Cardiovascular Exam Cardiovascular Exam: Tachycardia at approximately 100, REGULAR RHYTHM, +S1, +S2 - GI/Abdominal Exam GI & Abdominal Exam: Soft, Tenderness (mild suprapubic tenderness). absent: Guarding, Rebound, Rigid, Distension - Exam Exam: (-) testicular tenderness, (+) right hydrocele, with tenderness to palpation, (0) scrotal tenderness, (-) scrotal erythema, (-) urethral discharge, (+) cremasteric reflex, (-) tenderness of the penis, (-) circumcision. - Extremities Exam Extremities exam: Positive for: normal inspection, pedal pulses present. Negative for: calf tenderness, joint swelling - Back Exam Back exam: NORMAL INSPECTION. absent: CVA tenderness (L), CVA tenderness (R) - Neurological Exam Neurological exam: Alert, Oriented x3. - Psychiatric Exam Psychiatric exam: Normal Affect, Normal Mood - Skin Skin Exam: Dry, Normal Color, Warm Assessment and Plan - Assessment and Plan (Free Text) Assessment: Sepsis 2/2 to UTI (ESBL), possible early Pyelonephritis * UA showed +1 blood, +2 leukocyte esterase, WBC 88 * UCx 09/28 is positive for Ecoli, ESBL positive * Tmax 102.0F oral, 09/28/18 * Afebrile for greater than 24 hours * CT abd/pelvis showed No acute abnormality. Punctate 1-2 mm calcification in the upper pole left kidney, possibly cortical versus collecting system but nonobstructing. No additional abnormality (see full report). * Leukocytosis 22.6 on admission. Lactate 2.1 increased to 2.2 during day of admission * Code sepsis was called, Received Rocephin 250mg IM, Azithromax 1000mg, Ciprofloxacin 400mg IVPB * WBC downtrending (25.4), continues to have bandemia (6) * procalcitonin is 11.23 09/29 * Infectious disease, Dr. Krishnamurthy, consulted. * Antibiotics: continue Meropenem 1g IVPB Q8 as per ID * Tylenol 650mg PO Q6H prn fever/pain * Continue IV fluid hydration * HIV 1/2 Ab, Hepatitis panel is negative; UDS is negative * Urology, Dr. Casas, consulted * Right epididymitis, continue IV abx * Testicular US 09/29: no evidence for testicular mass, torsion, or epididymo- orchitis. Bilateral small hydroceles. * F/U GC/Chlamydia, HSV 1+2 IgM, * RPR is nonreactive * BCx x2 is negative for 24 hours Tachycardia * Likely secondary to sepsis * EKG showed tachycardia with RBBB (unchanged from previous EKG) * Troponin negative x 3 * CXR shows minor left basilar atelectasis and/or scarring. Hypomagnesemia, resolved * Continue to monitor and replete as needed Impaired glucose tolerance * HgbA1c is 5.9 * Pt educated on diet and exercise, and negative effects of uncontrolled diabet es. Chronic Right shoulder pain * MRI upper extremity : 1. Foot in thickness tear supraspinatus tendon with proxy 1 cm retraction from the rupture site. No muscle atrophy related. Degenerative tendinosis is seen at the infraspinatus tendon. 2. Prominent acromioclavicular joint degenerative arthrosis. 3. Trace subacromial subdeltoid bursitis History of Asthma * Well controlled * Continue to monitor GI/DVT ppx: * Protonix 40mg IVP daily * SCDs, Heparin 5000u SC q12 * lactobacillus 1 tab po BID * MVs <Evonne Padilla V - Last Filed: 09/30/18 15:38> Objective - Vital Signs/Intake and Output Vital Signs (last 24 hours): Temp Pulse Resp BP Pulse Ox 98.6 F 95 H 20 122/78 95 09/30/18 08:00 09/30/18 08:00 09/30/18 08:00 09/30/18 08:00 09/30/18 08:00 Intake and Output: 09/30/18 09/30/18 06:59 18:59 Intake Total 3280 Balance 3280 - Medications Medications: Current Medications Acetaminophen (Tylenol 325mg Tab) 650 mg PO Q6 PRN PRN Reason: Fever >100.4 F Last Admin: 09/30/18 12:50 Dose: 650 mg Heparin Sodium (Porcine) (Heparin) 5,000 units SC Q12 [facility] Sodium Chloride (Sodium Chloride 0.9%) 1,000 mls @ 150 mls/hr IV .Q6H40M [facility] Last Admin: 09/30/18 13:54 Dose: 150 mls/hr Meropenem 1 gm/ Sodium (Chloride) 100 mls @ 100 mls/hr IVPB Q8H [facility]; Protocol Last Admin: 09/30/18 12:42 Dose: 100 mls/hr Lactobacillus Acidophilus (Lactobacillus) 1 cap PO BID [facility] Last Admin: 09/30/18 09:10 Dose: 1 cap Multivitamins (Hexavitamin) 1 tab PO DAILY [facility] Last Admin: 09/30/18 09:10 Dose: 1 tab - Labs Labs: 09/30/18 07:13 09/30/18 07:13 Attending/Attestation - Attestation I have personally seen and examined this patient.: Yes I have fully participated in the care of the patient.: Yes I have reviewed all pertinent clinical information, including history, physical exam and plan: Yes Notes (Text): Patient seen, examined and case discussed with day-time resident. Patient reports he is feeling better; but continues to have suprapubic pain. Urine culture final came back showing ESBL+. Patient placed on contact isolation; CHANDA is amenable to Meropenem. White count is slowly down trending while on IV abx. Blood cultures from 09/28 are negative thus far. Assessment/Plan 1. Sepsis Epididymitis Pyleonephritis Assessment/Plan * Criteria: 102.0F, leukocytosis, suspected epididymitis and pyleonepritis * Code sepsis was called 09/28/18, Received Rocephin 250mg IM, Azithromax 1000mg, Ciprofloxacin 400mg IVPB * Infectious Disease (Dr. Krishnamurthy) on case help appreciated. * Urology (Dr. Casas) on case help appreciated * Procalcitionin: 11.23 * Lactic acid: 2.1-->1.8-->2.2-->1.1 * Contact isolation * CT abd/pelvis showed No acute abnormality. Punctate 1-2 mm calcification in the upper pole left kidney, possibly cortical versus collecting system but nonobstructing. No additional abnormality (see full report). * IV abx: Meropenem 1gram IV Q8H (active since ) * Bacid 1 tab PO BID * NS 150cc/hr * Tylenol 650mg PO Q6H prn fever T>100.4F * UCx 3/24 prelim shows gram negative rods * Blood culture (09/28/18): no growth for 24 hours X2 * Blood culture (09/28/18): no growth for 24 hours X2 * Testicular US 09/29: no evidence for testicular mass, torsion, or epididymo- orchitis. Bilateral small hydroceles. * F/U GC/Chlamydia, HSV 1+2 IgM, RPR 2. Tachycardia Assessment/Plan * Likely secondary to sepsis, fever, dehydration * EKG showed tachycardia with RBBB (unchanged from previous EKG) * Troponin negative x 3 * CXR shows minor left basilar atelectasis and/or scarring 3. Hypomagnesemia (chronic) Assessment/Plan * 1.4 today, repleted with MgSulfate 2g IVPB * Continue to monitor and replete as needed 4. Impaired glucose tolerance (chronic) Assessment/Plan * HgbA1c is 5.9 * Pt educated on diet and exercise, and negative effects of uncontrolled diabetes. 5. Chronic Right shoulder pain (chronic) Assessment/Plan * MRI upper extremity : 1. Foot in thickness tear supraspinatus tendon with proxy 1 cm retraction from the rupture site. No muscle atrophy related. Degenerative tendinosis is seen at the infraspinatus tendon. 2. Prominent acromioclavicular joint degenerative arthrosis. 3. Trace subacromial subdeltoid bursitis (05/2017) 6. History of Asthma (chronic) * Duonebs PRN shortness of breathe * Continue to monitor 7. GI/DVT ppx: * Protonix 40mg IVP daily * SCDs (patient is refusing chemical ppx despite being educated on the use) * lactobacillus 1 tab po BID * IV Hydration: NS 150cc/hr * PT eval/OT eval * Contact isolation * heparin 5000 unit [id number] Disposition: patient to continue to benefit from IV abx given resistant urinary tract infection and he slowly recovers from sepsis.
--- NOTE | 2018-09-30 11:17 | CP.PCM.PN ---
Subjective - Date & Time of Evaluation Date of Evaluation: 09/30/18 Time of Evaluation: 08:00 - Subjective Subjective: + ESBL E Coli UTI / epididimitis on Merrem improving Objective - Vital Signs/Intake and Output Vital Signs (last 24 hours): Temp Pulse Resp BP Pulse Ox 98.6 F 95 H 20 122/78 95 09/30/18 08:00 09/30/18 08:00 09/30/18 08:00 09/30/18 08:00 09/30/18 08:00 Intake and Output: 09/30/18 09/30/18 06:59 18:59 Intake Total 3280 Balance 3280 - Medications Medications: Current Medications Acetaminophen (Tylenol 325mg Tab) 650 mg PO Q6 PRN PRN Reason: Fever >100.4 F Last Admin: 09/30/18 06:55 Dose: 650 mg Sodium Chloride (Sodium Chloride 0.9%) 1,000 mls @ 150 mls/hr IV .Q6H40M [facility] Last Admin: 09/30/18 08:58 Dose: Not Given Meropenem 1 gm/ Sodium (Chloride) 100 mls @ 100 mls/hr IVPB Q8H [facility]; Protocol Last Admin: 09/30/18 05:06 Dose: 100 mls/hr Lactobacillus Acidophilus (Lactobacillus) 1 cap PO BID [facility] Last Admin: 09/30/18 09:10 Dose: 1 cap Multivitamins (Hexavitamin) 1 tab PO DAILY [facility] Last Admin: 09/30/18 09:10 Dose: 1 tab - Labs Labs: 09/30/18 07:13 09/30/18 07:13 Assessment and Plan (1) Sepsis Status: Acute (2) UTI (urinary tract infection) Status: Acute
[2018-09-30] MEDS ORDERED: Magnesium Sulfate 1 gm in D5W 1 GM/100 ML BAG IVPB ONE (15:33)
[2018-09-30] MEDS ORDERED: Albuterol-Ipratrop 3 mg / 0.5 (3 ml) UD INH PRN (15:34)
[2018-10-01 03:05] LABS: SQUAMOUS EPITHIAL < 1 /hpf (0-5); URINE BILIRUBIN NEGATIVE (NEGATIVE); URINE BLOOD NEGATIVE (NEGATIVE); URINE CLARITY Clear (Clear); URINE COLOR Yellow (YELLOW); URINE GLUCOSE (UA) NORMAL (Normal); URINE LEUKOCYTE ESTERASE TRACE Leu/uL (Negative); URINE PROTEIN NEGATIVE (NEGATIVE); URINE UROBILINOGEN NORMAL mg/dL (0.2-1.0)
[2018-10-01] MEDS: Sodium Chloride 0.9% 1,000 ML IV SCH ×3 (05:15→17:35)
[2018-10-01] MEDS: Meropenem 1 GM in Sodium Chloride 0.9% 100 ML IVPB SCH ×3 (05:15→20:28)
--- NOTE | 2018-10-01 07:07 | CP.PCM.PN ---
<Shaquille Shaw - Last Filed: 10/01/18 15:20> Subjective - Date & Time of Evaluation Date of Evaluation: 10/01/18 Time of Evaluation: 09:00 - Subjective Subjective: Medicine progress note for Dr. Padilla Pt seen and examined at bedside. Fever overnight and this morning 100.2F oral, treated with Tylenol. Reports resolution suprapubic discomfort. Feels better. Denies fever, chills, chest pain, sob, n/v/d, hematochezia, melena, hematuria, penile discharge, back pain, dysuria. Objective - Vital Signs/Intake and Output Vital Signs (last 24 hours): Temp Pulse Resp BP Pulse Ox 100.2 F H 96 H 20 108/70 96 10/01/18 05:30 10/01/18 00:00 10/01/18 00:00 10/01/18 00:00 10/01/18 00:00 Intake and Output: 10/01/18 10/01/18 06:59 18:59 Intake Total 3250 Output Total 1000 Balance 2250 - Medications Medications: Current Medications Acetaminophen (Tylenol 325mg Tab) 650 mg PO Q6 PRN PRN Reason: Fever >100.4 F Last Admin: 10/01/18 05:40 Dose: 650 mg Albuterol/Ipratropium (Duoneb 3 Mg/0.5 Mg (3 Ml) Ud) 3 ml INH RQ6 PRN PRN Reason: Shortness of Breath Heparin Sodium (Porcine) (Heparin) 5,000 units SC Q12 [facility] Last Admin: 09/30/18 21:19 Dose: Not Given Sodium Chloride (Sodium Chloride 0.9%) 1,000 mls @ 150 mls/hr IV .Q6H40M [facility] Last Admin: 10/01/18 05:15 Dose: 150 mls/hr Meropenem 1 gm/ Sodium (Chloride) 100 mls @ 100 mls/hr IVPB Q8H [facility]; Protocol Last Admin: 10/01/18 05:15 Dose: 100 mls/hr Lactobacillus Acidophilus (Lactobacillus) 1 cap PO BID [facility] Last Admin: 09/30/18 17:26 Dose: 1 cap Multivitamins (Hexavitamin) 1 tab PO DAILY [facility] Last Admin: 09/30/18 09:10 Dose: 1 tab - Labs Labs: 09/30/18 07:13 09/30/18 07:13 - Additional Findings Additional findings: - Constitutional Appears: Non-toxic, No Acute Distress - Head Exam Head Exam: NORMAL INSPECTION, NORMOCEPHALIC - Eye Exam Eye Exam: EOMI, Normal appearance - ENT Exam ENT Exam: Mucous Membranes Moist - Neck Exam Neck exam: Positive for: Full Rom - Respiratory Exam Respiratory Exam: Clear to Auscultation Bilateral, NORMAL BREATHING PATTERN. absent: Decreased Breath Sounds, Rales, Rhonchi, Wheezes - Cardiovascular Exam Cardiovascular Exam: REGULAR RHYTHM, +S1, +S2. absent: tachycardia - GI/Abdominal Exam GI & Abdominal Exam: Soft. absent: Tenderness, Guarding, Rebound, Rigid, Distension - Exam Exam: (-) testicular tenderness, (+) right hydrocele, with tenderness to palpation, (-) scrotal tenderness, (-) scrotal erythema, (-) urethral discharge, (+) cremasteric reflex, (-) tenderness of the penis, (-) circumcision. - Extremities Exam Extremities exam: Positive for: normal inspection, pedal pulses present. Negati ve for: calf tenderness, joint swelling - Back Exam Back exam: NORMAL INSPECTION. absent: CVA tenderness (L), CVA tenderness (R) - Neurological Exam Neurological exam: Alert, Oriented x3. - Psychiatric Exam Psychiatric exam: Normal Affect, Normal Mood - Skin Skin Exam: Dry, Normal Color, Warm Assessment and Plan - Assessment and Plan (Free Text) Assessment: Sepsis 2/2 to UTI (ESBL), possible early Pyelonephritis * UA showed +1 blood, +2 leukocyte esterase, WBC 88 * UCx 09/28 is positive for Ecoli, ESBL positive * Tmax 102.0F oral, 09/28/18 * Afebrile for greater than 24 hours * CT abd/pelvis showed No acute abnormality. Punctate 1-2 mm calcification in the upper pole left kidney, possibly cortical versus collecting system but nonobstructing. No additional abnormality (see full report). * Leukocytosis 22.6 on admission. Lactate 2.1 increased to 2.2 during day of admission * Leukocytosis resolved today (8.8), and bandemia resolved as well * procalcitonin is 11.23 09/29-->4.17 today * Tylenol 650mg PO Q6H prn fever/pain * Continue IV fluid hydration * HIV 1/2 Ab, Hepatitis panel is negative; UDS is negative * Urology, Dr. Casas, consulted * Right epididymitis, continue IV abx * Testicular US 09/29: no evidence for testicular mass, torsion, or epididymo- orchitis. Bilateral small hydroceles. * GC/Chlamydia RNA is negative * F/u HSV 1+2 IgM, * RPR is nonreactive * BCx x2 is negative for 48 hours * Repeat UA (10/01) is positive for WBC 16, trace leukocyte esterase * Infectious disease, Dr. Krishnamurthy, consulted. * Antibiotics: continue Meropenem 1g IVPB Q8 and switch to Ertapenem 1g IVPB Qdaily on day of discharge. Pt to have IV abx until 10/11/18. * Pt does not need to be watched for reaction to Ertapenem as pt is receiving merrem which is very similar. * Pt will have PICC line placed today, continued Merrem untul tomorrow and receive Ertapenem 1g IVPB dose prior to planned discharge tomorrow. Tachycardia, resolved * Likely secondary to sepsis * EKG showed tachycardia with RBBB (unchanged from previous EKG) * Troponin negative x 3 * CXR shows minor left basilar atelectasis and/or scarring. Electrolyte abnormalities, secondary to poor PO ntake Hypomagnesemia Hypophosphatemia Hypokalemia * Continue to monitor and replete as needed Impaired glucose tolerance * HgbA1c is 5.9 * Pt educated on diet and exercise, and negative effects of uncontrolled diabetes. Chronic Right shoulder pain * MRI upper extremity : 1. Foot in thickness tear supraspinatus tendon with proxy 1 cm retraction from the rupture site. No muscle atrophy related. Degenerative tendinosis is seen at the infraspinatus tendon. 2. Prominent acromioclavicular joint degenerative arthrosis. 3. Trace subacromial subdeltoid bursitis History of Asthma * Well controlled * Continue to monitor GI/DVT ppx: * Protonix 40mg IVP daily * SCDs, Heparin 5000u SC q12 * lactobacillus 1 tab po BID * MVs Dispo: Pt clinically improving. Continue IV abx. Blood culture x2 negative to date, for PICC line. Potential discharge tomorrow if afebrile for greater than 24 hours and continued improvement. Plan to have Ertapenem until 10/11/18, with CBC, CMP every 3 days as per ID. <Evonne Padilla V - Last Filed: 10/01/18 22:37> Objective - Vital Signs/Intake and Output Vital Signs (last 24 hours): Temp Pulse Resp BP Pulse Ox 100 F H 71 20 122/78 97 10/01/18 20:32 10/01/18 16:00 10/01/18 16:00 10/01/18 16:00 10/01/18 16:00 Intake and Output: 10/01/18 10/02/18 18:59 06:59 Intake Total 1269 Balance 1269 - Medications Medications: Current Medications Acetaminophen (Tylenol 325mg Tab) 650 mg PO Q6 PRN PRN Reason: Fever >100.4 F Last Admin: 10/01/18 19:09 Dose: 650 mg Albuterol/Ipratropium (Duoneb 3 Mg/0.5 Mg (3 Ml) Ud) 3 ml INH RQ6 PRN PRN Reason: Shortness of Breath Heparin Sodium (Porcine) (Heparin) 5,000 units SC Q12 [facility] Last Admin: 10/01/18 21:04 Dose: Not Given Sodium Chloride (Sodium Chloride 0.9%) 1,000 mls @ 150 mls/hr IV .Q6H40M [facility] Last Admin: 10/01/18 17:35 Dose: Not Given Meropenem 1 gm/ Sodium (Chloride) 100 mls @ 100 mls/hr IVPB Q8H [facility]; Protocol Last Admin: 10/01/18 20:28 Dose: 100 mls/hr Ertapenem 1 gm/ Sodium (Chloride) 100 mls @ 100 mls/hr IV ONCE ONE; Protocol Stop: 10/02/18 08:59 Lactobacillus Acidophilus (Lactobacillus) 1 cap PO BID [facility] Last Admin: 10/01/18 17:33 Dose: 1 cap Multivitamins (Hexavitamin) 1 tab PO DAILY [facility] Last Admin: 10/01/18 09:40 Dose: 1 tab - Labs Labs: 10/01/18 08:10 10/01/18 08:10 Attending/Attestation - Attestation I have personally seen and examined this patient.: Yes I have fully participated in the care of the patient.: Yes I have reviewed all pertinent clinical information, including history, physical exam and plan: Yes Notes (Text): Patient seen, examined and case discussed with day-time resident. Patient reports he is feeling better; but continues to have suprapubic pain which is improving. Patient's white count has normalized; has a low grade fever. Blood cultures are negative. Infectious disease has recommended 14 day course of IV abx to cover for ESBL+ UTI. Patient to be setup for PICC line for outpatient transfusion center; and to switch to Invanez complete one dose while in the hospital. Assessment/Plan 1. Sepsis Epididymitis Pyleonephritis Assessment/Plan * Criteria: 102.0F, leukocytosis, suspected epididymitis and pyleonepritis * Code sepsis was called 09/28/18, Received Rocephin 250mg IM, Azithromax 1000mg, Ciprofloxacin 400mg IVPB * Infectious Disease (Dr. Krishnamurthy) on case help appreciated. * Urology (Dr. Casas) on case help appreciated * Procalcitionin: 11.23 * Lactic acid: 2.1-->1.8-->2.2-->1.1 * Contact isolation * CT abd/pelvis showed No acute abnormality. Punctate 1-2 mm calcification in the upper pole left kidney, possibly cortical versus collecting system but nonobstructing. No additional abnormality (see full report). * IV abx: Meropenem 1gram IV Q8H (active since 09/28/18) * to setup to complete 14 day course on Invanez * Bacid 1 tab PO BID * NS 150cc/hr * Tylenol 650mg PO Q6H prn fever T>100.4F * UCx 09/28 prelim shows gram negative rods * Blood culture (09/28/18): no growth * Blood culture (09/28/18): no growth * Testicular US 09/29: no evidence for testicular mass, torsion, or epididymo-orchitis. Bilateral small hydroceles. * F/U GC/Chlamydia, HSV 1+2 IgM, RPR 2. Tachycardia Assessment/Plan * Likely secondary to sepsis, fever, dehydration * EKG showed tachycardia with RBBB (unchanged from previous EKG) * Troponin negative x 3 * CXR shows minor left basilar atelectasis and/or scarring 3. Hypomagnesemia (chronic) Assessment/Plan * monitor and replete 4. Impaired glucose tolerance (chronic) Assessment/Plan * HgbA1c is 5.9 * Pt educated on diet and exercise, and negative effects of uncontrolled diabetes. 5. Chronic Right shoulder pain (chronic) Assessment/Plan * MRI upper extremity : 1. Foot in thickness tear supraspinatus tendon with proxy 1 cm retraction from the rupture site. No muscle atrophy related. Degenerative tendinosis is seen at the infraspinatus tendon. 2. Prominent acromioclavicular joint degenerative arthrosis. 3. Trace subacromial subdeltoid bursitis (05/2017) 6. History of Asthma (chronic) * Duonebs PRN shortness of breathe * Continue to monitor 7. GI/DVT ppx: * Protonix 40mg IVP daily * SCDs (patient is refusing chemical ppx despite being educated on the use) * lactobacillus 1 tab po BID * IV Hydration: NS 150cc/hr * PT eval/OT eval * Contact isolation * heparin 5000 unit [id number] Disposition: patient to continue to benefit from IV abx given resistant urinary tract infection; to receive PICC line, and setup for outpatient transfusion center.
[2018-10-01 08:23] LABS: BASO % 0.4 % (0.0-2.0); EOS % 0.2 % (0.0-4.0); HEMOGLOBIN 12.5 g/dL (12.0-18.0); LYMPH # 0.6 K/uL (1.0-4.3); LYMPH % 6.5 % (20.0-40.0); MEAN CELL VOLUME 92.6 fL (80.0-94.0); MEAN CORPUSCULAR HEMOGLOBIN 32.1 pg (27.0-31.0); MEAN CORPUSCULAR HGB CONC 34.7 g/dL (33.0-37.0); MEAN PLATELET VOLUME 10.7 fL (7.2-11.7); MONO # 0.7 K/uL (0.0-0.8); MONO % 7.8 % (0.0-10.0); NEUT # 7.5 K/uL (1.8-7.0); NEUT % 85.1 % (50.0-75.0); PLATELET COUNT 126 K/uL (130-400); RBC 3.91 Mil/uL (4.40-5.90); RED CELL DISTRIBUTION WIDTH 13.1 % (11.5-14.5)
[2018-10-01 08:37] LABS: WHITE BLOOD COUNT 8.8 K/uL (4.8-10.8)
[2018-10-01 08:39] LABS: ALBUMIN 3.2 g/dL (3.5-5.0); ALT/SGPT < 6 U/L (21-72); AST/SGOT 20 U/L (17-59); BLOOD UREA NITROGEN 5 mg/dL (9-20); CALCIUM 8.6 mg/dl (8.6-10.4); GFR NON-AFRICAN AMERICAN > 60
[2018-10-01] MEDS ORDERED: Potassium Chloride 20 mEq ER Tab PO ONE (09:34)
[2018-10-01] MEDS: Multiple Vitamins Tab PO SCH (09:40)
[2018-10-01] MEDS: Lactobacillus Acidophilus 500 MU Cap PO SCH ×2 (09:40→17:33)
[2018-10-01] MEDS ORDERED: Magnesium Sulfate 1 gm in D5W 1 GM/100 ML BAG IVPB ONE (10:00)
[2018-10-01] MEDS ORDERED: Potassium Phosphate 20 MMOLE in Sodium Chloride 0.9% 250 ML IV ONE (10:30)
[2018-10-01 11:15] LABS: LYMPHOCYTE 2 % (20-40); MONOCYTE 1 % (0-10); NEUTROPHIL 97 % (50-75); TOTAL CELLS COUNTED 100
[2018-10-01 11:16] LABS: PLATELET ESTIMATE NORMAL (NORMAL)
--- NOTE | 2018-10-01 17:38 | RAD ---
HISTORY: Verify left PICC COMPARISON: Chest x-ray performed 09/28/18 TECHNIQUE: Chest, one view. FINDINGS: Left-sided PICC extends to the expected location of the cavoatrial junction. LUNGS: No focal consolidation. Please note that chest x-ray has limited sensitivity for the detection of pulmonary masses. PLEURA: No significant pleural effusion identified. No definite pneumothorax . CARDIOVASCULAR: Heart size appears within normal limits. OSSEOUS STRUCTURES: No acute osseous abnormality identified. VISUALIZED UPPER ABDOMEN: Unremarkable. OTHER FINDINGS: None. IMPRESSION: Left-sided PICC extends to the expected location of the cavoatrial junction.
--- NOTE | 2018-10-01 21:11 | CP.PCM.PN ---
Subjective - Date & Time of Evaluation Date of Evaluation: 10/01/18 Time of Evaluation: 08:00 - Subjective Subjective: afebrile alert NAD less pain no fever Objective - Vital Signs/Intake and Output Vital Signs (last 24 hours): Temp Pulse Resp BP Pulse Ox 100 F H 71 20 122/78 97 10/01/18 20:32 10/01/18 16:00 10/01/18 16:00 10/01/18 16:00 10/01/18 16:00 Intake and Output: 10/01/18 10/02/18 18:59 06:59 Intake Total 1269 Balance 1269 - Medications Medications: Current Medications Acetaminophen (Tylenol 325mg Tab) 650 mg PO Q6 PRN PRN Reason: Fever >100.4 F Last Admin: 10/01/18 19:09 Dose: 650 mg Albuterol/Ipratropium (Duoneb 3 Mg/0.5 Mg (3 Ml) Ud) 3 ml INH RQ6 PRN PRN Reason: Shortness of Breath Heparin Sodium (Porcine) (Heparin) 5,000 units SC Q12 [facility] Last Admin: 10/01/18 21:04 Dose: Not Given Sodium Chloride (Sodium Chloride 0.9%) 1,000 mls @ 150 mls/hr IV .Q6H40M [facility] Last Admin: 10/01/18 17:35 Dose: Not Given Meropenem 1 gm/ Sodium (Chloride) 100 mls @ 100 mls/hr IVPB Q8H [facility]; Protocol Last Admin: 10/01/18 20:28 Dose: 100 mls/hr Ertapenem 1 gm/ Sodium (Chloride) 100 mls @ 100 mls/hr IV ONCE ONE; Protocol Stop: 10/02/18 08:59 Lactobacillus Acidophilus (Lactobacillus) 1 cap PO BID [facility] Last Admin: 10/01/18 17:33 Dose: 1 cap Multivitamins (Hexavitamin) 1 tab PO DAILY [facility] Last Admin: 10/01/18 09:40 Dose: 1 tab - Labs Labs: 10/01/18 08:10 10/01/18 08:10 - Constitutional Appears: No Acute Distress, Chronically Ill - Head Exam Head Exam: ATRAUMATIC, NORMAL INSPECTION, NORMOCEPHALIC - Eye Exam Eye Exam: EOMI, Normal appearance, PERRL Pupil Exam: NORMAL ACCOMODATION, PERRL - ENT Exam ENT Exam: Mucous Membranes Moist, Normal Exam - Neck Exam Neck Exam: Full ROM, Normal Inspection. absent: Lymphadenopathy - Respiratory Exam Respiratory Exam: Clear to Ausculation Bilateral, NORMAL BREATHING PATTERN - Cardiovascular Exam Cardiovascular Exam: REGULAR RHYTHM, +S1, +S2. absent: Murmur - GI/Abdominal Exam GI & Abdominal Exam: Soft, Normal Bowel Sounds. absent: Tenderness - Rectal Exam Rectal Exam: Deferred - Exam Exam: NORMAL INSPECTION - Extremities Exam Extremities Exam: Full ROM, Normal Capillary Refill, Normal Inspection. absent: Joint Swelling, Pedal Edema - Back Exam Back Exam: NORMAL INSPECTION - Neurological Exam Neurological Exam: Alert, Awake, CN II-XII Intact, Normal Gait, Oriented x3 - Psychiatric Exam Psychiatric exam: Normal Affect, Normal Mood - Skin Skin Exam: Dry, Intact, Normal Color, Warm Assessment and Plan (1) Sepsis Status: Acute (2) UTI (urinary tract infection) Status: Acute - Assessment and Plan (Free Text) Assessment: cont IV rx total 14 days for complicated UTI- ESBL + E Coli eval as out pt
[2018-10-02] MEDS: Meropenem 1 GM in Sodium Chloride 0.9% 100 ML IVPB SCH (04:00)
[2018-10-02 06:42] LABS: BASO # 0.1 K/uL (0.0-0.2); BASO % 1.2 % (0.0-2.0); EOS % 0.5 % (0.0-4.0); HEMOGLOBIN 13.1 g/dL (12.0-18.0); LYMPH % 15.1 % (20.0-40.0); MEAN CELL VOLUME 91.8 fL (80.0-94.0); MEAN CORPUSCULAR HEMOGLOBIN 31.4 pg (27.0-31.0); MEAN CORPUSCULAR HGB CONC 34.2 g/dL (33.0-37.0); MEAN PLATELET VOLUME 10.4 fL (7.2-11.7); MONO % 15.7 % (0.0-10.0); NEUT # 4.4 K/uL (1.8-7.0); NEUT % 67.5 % (50.0-75.0); RBC 4.16 Mil/uL (4.40-5.90); RED CELL DISTRIBUTION WIDTH 13.3 % (11.5-14.5); WHITE BLOOD COUNT 6.5 K/uL (4.8-10.8)
[2018-10-02 07:02] LABS: ALB/GLOB RATIO 1.1 (1.0-2.1); ALBUMIN 3.6 g/dL (3.5-5.0); ALT/SGPT 10 U/L (21-72); AST/SGOT 24 U/L (17-59); BLOOD UREA NITROGEN 8 mg/dL (9-20); CALCIUM 9.1 mg/dl (8.6-10.4); GFR NON-AFRICAN AMERICAN > 60
--- NOTE | 2018-10-02 07:13 | CP.PCM.PN ---
Subjective - Subjective Subjective: Medicine progress note for Dr. Padilla Pt seen and examined at bedside. Pt with 102F oral temp yesterday at around 7 pm and 100.2F oral this morning at 530. He was given Tylenol both times. Objective - Vital Signs/Intake and Output Vital Signs (last 24 hours): Temp Pulse Resp BP Pulse Ox 100.2 F H 82 20 114/75 96 10/02/18 05:30 10/02/18 00:00 10/02/18 00:00 10/02/18 00:00 10/02/18 00:00 Intake and Output: 10/02/18 10/02/18 06:59 18:59 Intake Total 3550 Balance 3550 - Medications Medications: Current Medications Acetaminophen (Tylenol 325mg Tab) 650 mg PO Q6 PRN PRN Reason: Fever >100.4 F Last Admin: 10/02/18 04:20 Dose: 650 mg Albuterol/Ipratropium (Duoneb 3 Mg/0.5 Mg (3 Ml) Ud) 3 ml INH RQ6 PRN PRN Reason: Shortness of Breath Heparin Sodium (Porcine) (Heparin) 5,000 units SC Q12 [facility] Last Admin: 10/01/18 21:04 Dose: Not Given Sodium Chloride (Sodium Chloride 0.9%) 1,000 mls @ 150 mls/hr IV .Q6H40M [facility] Last Admin: 10/02/18 00:00 Dose: 150 mls/hr Meropenem 1 gm/ Sodium (Chloride) 100 mls @ 100 mls/hr IVPB Q8H [facility]; Protocol Last Admin: 10/02/18 04:00 Dose: 100 mls/hr Ertapenem 1 gm/ Sodium (Chloride) 100 mls @ 100 mls/hr IV ONCE ONE; Protocol Stop: 10/02/18 08:59 Lactobacillus Acidophilus (Lactobacillus) 1 cap PO BID [facility] Last Admin: 10/01/18 17:33 Dose: 1 cap Multivitamins (Hexavitamin) 1 tab PO DAILY [facility] Last Admin: 10/01/18 09:40 Dose: 1 tab - Labs Labs: 10/02/18 06:30 10/02/18 06:30 Assessment and Plan - Assessment and Plan (Free Text) Assessment: Sepsis 2/2 to UTI (ESBL), possible early Pyelonephritis * UA showed +1 blood, +2 leukocyte esterase, WBC 88 * UCx 09/28 is positive for Ecoli, ESBL positive * Tmax 102.0F oral, * CT abd/pelvis showed No acute abnormality. Punctate 1-2 mm calcification in the upper pole left kidney, possibly cortical versus collecting system but nonobstructing. No additional abnormality (see full report). * Leukocytosis 22.6 on admission. Lactate 2.1 increased to 2.2 during day of admission * Leukocytosis resolved today (8.8), and bandemia resolved as well * procalcitonin is 11.23 09/29-->4.17 today * Tylenol 650mg PO Q6H prn fever/pain * Continue IV fluid hydration * HIV 1/2 Ab, Hepatitis panel is negative; UDS is negative * Urology, Dr. Casas, consulted * Right epididymitis, continue IV abx * Testicular US 09/29: no evidence for testicular mass, torsion, or epididymo- orchitis. Bilateral small hydroceles. * GC/Chlamydia RNA is negative * F/u HSV 1+2 IgM, * RPR is nonreactive * BCx x2 is negative for 3 days * Repeat UA (10/01) is positive for WBC 16, trace leukocyte esterase * Infectious disease, Dr. Krishnamurthy, consulted. * Antibiotics: continue Meropenem 1g IVPB Q8 and switch to Ertapenem 1g IVPB Qdaily on day of discharge. Pt to have IV abx until 10/11/18. * Pt does not need to be watched for reaction to Ertapenem as pt is receiving merrem which is very similar. * Pt with PICC line, continue Merrem, Ertapenem 1g IVPB dose held as pt febrile today. Tachycardia, resolved * Likely secondary to sepsis * EKG showed tachycardia with RBBB (unchanged from previous EKG) * Troponin negative x 3 * CXR shows minor left basilar atelectasis and/or scarring. Electrolyte abnormalities, secondary to poor PO ntake Hypomagnesemia Hypophosphatemia Hypokalemia * Continue to monitor and replete as needed Impaired glucose tolerance * HgbA1c is 5.9 * Pt educated on diet and exercise, and negative effects of uncontrolled diabetes. Chronic Right shoulder pain * MRI upper extremity : 1. Foot in thickness tear supraspinatus tendon with proxy 1 cm retraction from the rupture site. No muscle atrophy related. Degenerative tendinosis is seen at the infraspinatus tendon. 2. Prominent acromioclavicular joint degenerative arthrosis. 3. Trace subacromial subdeltoid bursitis History of Asthma * Well controlled * Continue to monitor GI/DVT ppx: * Protonix 40mg IVP daily * SCDs, Heparin 5000u SC q12 * lactobacillus 1 tab po BID * MVs Dispo: Continue IV abx until 10/11/18 (14 day total course of treatment). Blood culture x2 negative to date. Pt with PICC line. Discharge pending improvement of urine culture, febrile for more than 24 hours.
[2018-10-02] MEDS ORDERED: Ertapenem 1gm in NS 50ml 1 GM in Sodium Chloride 0.9% 50 ML IV ONE ×2 (08:00→13:00)
[2018-10-02] MEDS: Lactobacillus Acidophilus 500 MU Cap PO SCH (09:39)
[2018-10-02] MEDS: Multiple Vitamins Tab PO SCH (09:39)
[2018-10-02] MEDS: Sodium Chloride 0.9% 1,000 ML IV SCH ×3 (09:41→14:12)
--- NOTE | 2018-10-02 13:38 | CP.PCM.DIS ---
<Shaquille Shaw - Last Filed: 10/02/18 15:12> Provider - Provider Date of Admission: 09/28/18 15:11 Attending physician: Evonne Padilla DO Consults: 09/29/18 09:00 Infectious Disease Consult Routine Comment: Consulting Provider: Oliverio Krishnamurthy Consulting Physician: Oliverio Krishnamurthy Reason for Consult: sepsis, pyelonephritis 09/29/18 11:11 Urology Consult Routine Comment: Consulting Provider: Alfa Casas Consulting Physician: Alfa Casas Reason for Consult: testicular pain Time Spent in preparation of Discharge (in minutes): 35 Diagnosis - Discharge Diagnosis (1) Complicated UTI (urinary tract infection) Status: Acute (2) ESBL (extended spectrum beta-lactamase) producing bacteria infection Status: Acute (3) Acute epididymitis Status: Acute (4) Pyelonephritis Status: Acute (5) Sepsis Status: Acute (6) Asthma Status: Chronic Hospital Course - Lab Results Lab Results: Micro Results 10/01/18 02:52 Urine,Clean Catch Urine Culture - Final No Growth (<1,000 CFU/ML) 09/28/18 22:40 Blood Blood Culture - Preliminary NO GROWTH AFTER 3 DAYS 09/28/18 22:40 Blood Blood Culture - Preliminary NO GROWTH AFTER 3 DAYS 09/28/18 13:50 Blood Blood Culture - Preliminary NO GROWTH AFTER 3 DAYS 09/28/18 13:20 Blood Blood Culture - Preliminary NO GROWTH AFTER 3 DAYS 09/29/18 20:57 Stool Stool Culture - Final NO SALMONELLA, SHIGELLA OR CAMPYLOBACTER ISOLATED. 09/28/18 13:55 Urine,Clean Catch Urine Culture - Final Escherichia Coli Most Recent Lab Values WBC 6.5 K/uL (4.8-10.8) 10/02/18 06:30 RBC 4.16 Mil/uL (4.40-5.90) L 10/02/18 06:30 Hgb 13.1 g/dL (12.0-18.0) 10/02/18 06:30 Hct 38.2 % (35.0-51.0) 10/02/18 06:30 MCV 91.8 fL (80.0-94.0) 10/02/18 06:30 MCH 31.4 pg (27.0-31.0) H 10/02/18 06:30 MCHC 34.2 g/dL (33.0-37.0) 10/02/18 06:30 RDW 13.3 % (11.5-14.5) 10/02/18 06:30 Plt Count 132 K/uL (130-400) 10/02/18 06:30 MPV 10.4 fL (7.2-11.7) 10/02/18 06:30 Neut % (Auto) 67.5 % (50.0-75.0) 10/02/18 06:30 Lymph % (Auto) 15.1 % (20.0-40.0) L 10/02/18 06:30 [place] % (Auto) 15.7 % (0.0-10.0) H 10/02/18 06:30 Eos % (Auto) 0.5 % (0.0-4.0) 10/02/18 06:30 Baso % (Auto) 1.2 % (0.0-2.0) 10/02/18 06:30 Neut # (Auto) 4.4 K/uL (1.8-7.0) 10/02/18 06:30 Lymph # (Auto) 1.0 K/uL (1.0-4.3) 10/02/18 06:30 [place] # (Auto) 1.0 K/uL (0.0-0.8) H 10/02/18 06:30 Eos # (Auto) 0.0 K/uL (0.0-0.7) 10/02/18 06:30 Baso # (Auto) 0.1 K/uL (0.0-0.2) 10/02/18 06:30 Neutrophils % (Manual) 97 % (50-75) H 10/01/18 08:10 Band Neutrophils % 6 % (0-2) H 09/30/18 07:13 Lymphocytes % (Manual) 2 % (20-40) L 10/01/18 08:10 Monocytes % (Manual) 1 % (0-10) 10/01/18 08:10 Platelet Estimate Normal (NORMAL) 10/01/18 08:10 Large Platelets Present 09/28/18 13:55 RBC Morphology Normal 10/01/18 08:10 Polychromasia Slight 09/28/18 13:55 Anisocytosis (manual) Slight 09/28/18 13:55 Macrocytosis (manual) Slight 09/28/18 13:55 pO2 100 mm/Hg (30-55) H 09/28/18 16:50 VBG pH 7.42 (7.32-7.43) 09/28/18 16:50 VBG pCO2 32 mmHg (40-60) L 09/28/18 16:50 VBG HCO3 22.8 mmol/L 09/28/18 16:50 VBG Total CO2 21.8 mmol/L (22-28) L 09/28/18 16:50 VBG O2 Sat (Calc) 98.9 % (40-65) H 09/28/18 16:50 VBG Base Excess -2.8 mmol/L (0.0-2.0) L 09/28/18 16:50 VBG Potassium 3.3 mmol/L (3.6-5.2) L 09/28/18 16:50 Sodium 136.0 mmol/l (132-148) 09/28/18 16:50 Chloride 112.0 mmol/L (98-107) H 09/28/18 16:50 Glucose 96 mg/dl (75-110) 09/28/18 16:50 Lactate 1.8 mmol/L (0.7-2.1) 09/28/18 16:50 Sodium 135 mmol/L (132-148) 10/02/18 06:30 Potassium 3.7 mmol/L (3.6-5.2) 10/02/18 06:30 Chloride 103 mmol/L (98-107) 10/02/18 06:30 Carbon Dioxide 28 mmol/L (22-30) 10/02/18 06:30 Anion Gap 8 (10-20) L 10/02/18 06:30 BUN 8 mg/dL (9-20) L 10/02/18 06:30 Creatinine 0.8 mg/dL (0.8-1.5) 10/02/18 06:30 Est GFR ( Amer) > 60 10/02/18 06:30 Est GFR (Non-Af Amer) > 60 10/02/18 06:30 Random Glucose 107 mg/dL (75-110) 10/02/18 06:30 Hemoglobin A1c 5.9 % (4.2-6.5) 09/29/18 06:20 Lactic Acid 1.1 mmol/L (0.7-2.1) 09/29/18 14:12 Calcium 9.1 mg/dl (8.6-10.4) 10/02/18 06:30 Phosphorus 2.2 mg/dL (2.5-4.5) L 10/02/18 06:30 Magnesium 1.6 mg/dL (1.6-2.3) 10/02/18 06:30 Total Bilirubin 0.5 mg/dL (0.2-1.3) 10/02/18 06:30 AST 24 U/L (17-59) 10/02/18 06:30 ALT 10 U/L (21-72) L D 10/02/18 06:30 Alkaline Phosphatase 70 U/L (38-126) 10/02/18 06:30 Total Protein 6.9 g/dL (6.3-8.3) 10/02/18 06:30 Albumin 3.6 g/dL (3.5-5.0) 10/02/18 06:30 Globulin 3.3 gm/dL (2.2-3.9) 10/02/18 06:30 Albumin/Globulin Ratio 1.1 (1.0-2.1) 10/02/18 06:30 Procalcitonin 4.17 NG/ML (0.19-0.49) H 10/01/18 08:10 Venous Blood Potassium 3.3 mmol/L (3.6-5.2) L 09/28/18 16:50 Urine Color Yellow (YELLOW) 10/01/18 02:52 Urine Clarity Clear (Clear) 10/01/18 02:52 Urine pH 7.0 (5.0-8.0) 10/01/18 02:52 Ur Specific [place] 1.009 (1.003-1.030) 10/01/18 02:52 Urine Protein Negative mg/dL (NEGATIVE) 10/01/18 02:52 Urine Glucose (UA) Normal mg/dL (Normal) 10/01/18 02:52 Urine Ketones Trace mg/dL (NEGATIVE) 10/01/18 02:52 Urine Blood Negative (NEGATIVE) 10/01/18 02:52 Urine Nitrate Negative (NEGATIVE) 10/01/18 02:52 Urine Bilirubin Negative (NEGATIVE) 10/01/18 02:52 Urine Urobilinogen Normal mg/dL (0.2-1.0) 10/01/18 02:52 Ur Leukocyte Esterase Trace Jed/uL (Negative) 10/01/18 02:52 Urine WBC (Auto) 16 /hpf (0-5) H 10/01/18 02:52 Urine RBC (Auto) 1 /hpf (0-3) 10/01/18 02:52 Ur Squamous Epith Cells < 1 /hpf (0-5) 10/01/18 02:52 Stool Occult Blood Negative (NEGATIVE) 09/29/18 20:57 Stool Leukocytes, Qual Negative (NEGATIVE) 09/29/18 20:57 Urine Opiates Screen Negative (NEGATIVE) 09/28/18 21:47 Urine Methadone Screen Negative (NEGATIVE) 09/28/18 21:47 Ur Barbiturates Screen Negative (NEGATIVE) 09/28/18 21:47 Ur Phencyclidine Scrn Negative (NEGATIVE) 09/28/18 21:47 Ur Amphetamines Screen Negative (NEGATIVE) 09/28/18 21:47 U Benzodiazepines Scrn Negative (NEGATIVE) 09/28/18 21:47 U Oth Cocaine Metabols Negative (NEGATIVE) 09/28/18 21:47 U Cannabinoids Screen Negative (NEGATIVE) 09/28/18 21:47 RPR Nonreactive (NONREACTIVE) 09/29/18 06:20 C.trachomatis RNA (TMA) Not detected (Not Detected) 09/28/18 14:44 Hepatitis A IgM Ab Negative (NEGATIVE) 09/29/18 06:20 Hep Bs Antigen Negative (NEGATIVE) 09/29/18 06:20 Hep B Core IgM Ab Negative (NEGATIVE) 09/29/18 06:20 Hepatitis C Antibody Negative (NEGATIVE) 09/29/18 06:20 HIV 1&2 Antibody Screen Negative (NEGATIVE) 09/29/18 06:20 N.gonorrhoeae RNA (TMA) Not detected (Not Detected) 09/28/18 14:44 Discharge Exam - Head Exam Head Exam: ATRAUMATIC, NORMAL INSPECTION, NORMOCEPHALIC Discharge Plan - Discharge Medications Prescriptions: Lactobacillus Acidophilus [Lactobacillus] 1 cap PO BID #60 cap - Follow Up Plan Condition: STABLE Disposition: HOME/ ROUTINE Instructions: Lactobacillus, Urinary Tract Infection in Men (DC), Sepsis (DC) Additional Instructions: Pt is medically stable for discharge home as per Dr. Padilla. Prescriptions needed: Lactobacillus 1 tab by mouth twice daily, 8 am and 8 pm. #60 Motrin 800 mg 1 tab by mouth up to three times day, every 8 hours, as needed for fever. #21 Please take OTC Tylenol and Motrin as above as needed for fevers, do not exceed daily maximum dose. 4g for Tylenol, Motrin 2400mg. Please apply Bactroban ointment to redness to the face as needed three times a day. Pt is to continue receiving once daily infusions of Ertapenem 1g IVPB at outpatient infusion center until 10/11/18. He is also to have CBC, CMP every 3 days at the outpatient center. Pt should follow up with PMD ([facility]), or [facility], within 1 week of discharge. Please call for appointment. Pt should obtain a referral for urologist from the clinic, and follow up with 2 weeks of discharge. Pt should obtain a biopsy of the facial redness at his PMD's office, as it has recurred multiple times. Should symptoms worsen, please return to nearest Emergency Department for further evaluation. Referrals: [facility] at [facility] [Outside] <Evonne Padilla V - Last Filed: 10/03/18 15:06> Provider - Provider Date of Admission: 09/28/18 15:11 Attending physician: Evonne Padilla DO Consults: 09/29/18 09:00 Infectious Disease Consult Routine Comment: Consulting Provider: Oliverio Krishnamurthy Consulting Physician: Oliverio Krishnamurthy Reason for Consult: sepsis, pyelonephritis 09/29/18 11:11 Urology Consult Routine Comment: Consulting Provider: Alfa Casas Consulting Physician: Alfa Casas Reason for Consult: testicular pain Hospital Course - Lab Results Lab Results: Micro Results 09/28/18 13:50 Blood Blood Culture - Preliminary NO GROWTH AFTER 4 DAYS 09/28/18 13:20 Blood Blood Culture - Preliminary NO GROWTH AFTER 4 DAYS 10/01/18 02:52 Urine,Clean Catch Urine Culture - Final No Growth (<1,000 CFU/ML) 09/28/18 22:40 Blood Blood Culture - Preliminary NO GROWTH AFTER 3 DAYS 09/28/18 22:40 Blood Blood Culture - Preliminary NO GROWTH AFTER 3 DAYS 09/29/18 20:57 Stool Stool Culture - Final NO SALMONELLA, SHIGELLA OR CAMPYLOBACTER ISOLATED. 09/28/18 13:55 Urine,Clean Catch Urine Culture - Final Escherichia Coli Most Recent Lab Values WBC 6.5 K/uL (4.8-10.8) 10/02/18 06:30 RBC 4.16 Mil/uL (4.40-5.90) L 10/02/18 06:30 Hgb 13.1 g/dL (12.0-18.0) 10/02/18 06:30 Hct 38.2 % (35.0-51.0) 10/02/18 06:30 MCV 91.8 fL (80.0-94.0) 10/02/18 06:30 MCH 31.4 pg (27.0-31.0) H 10/02/18 06:30 MCHC 34.2 g/dL (33.0-37.0) 10/02/18 06:30 RDW 13.3 % (11.5-14.5) 10/02/18 06:30 Plt Count 132 K/uL (130-400) 10/02/18 06:30 MPV 10.4 fL (7.2-11.7) 10/02/18 06:30 Neut % (Auto) 67.5 % (50.0-75.0) 10/02/18 06:30 Lymph % (Auto) 15.1 % (20.0-40.0) L 10/02/18 06:30 [place] % (Auto) 15.7 % (0.0-10.0) H 10/02/18 06:30 Eos % (Auto) 0.5 % (0.0-4.0) 10/02/18 06:30 Baso % (Auto) 1.2 % (0.0-2.0) 10/02/18 06:30 Neut # (Auto) 4.4 K/uL (1.8-7.0) 10/02/18 06:30 Lymph # (Auto) 1.0 K/uL (1.0-4.3) 10/02/18 06:30 [place] # (Auto) 1.0 K/uL (0.0-0.8) H 10/02/18 06:30 Eos # (Auto) 0.0 K/uL (0.0-0.7) 10/02/18 06:30 Baso # (Auto) 0.1 K/uL (0.0-0.2) 10/02/18 06:30 Neutrophils % (Manual) 97 % (50-75) H 10/01/18 08:10 Band Neutrophils % 6 % (0-2) H 09/30/18 07:13 Lymphocytes % (Manual) 2 % (20-40) L 10/01/18 08:10 Monocytes % (Manual) 1 % (0-10) 10/01/18 08:10 Platelet Estimate Normal (NORMAL) 10/01/18 08:10 Large Platelets Present 09/28/18 13:55 RBC Morphology Normal 10/01/18 08:10 Polychromasia Slight 09/28/18 13:55 Anisocytosis (manual) Slight 09/28/18 13:55 Macrocytosis (manual) Slight 09/28/18 13:55 pO2 100 mm/Hg (30-55) H 09/28/18 16:50 VBG pH 7.42 (7.32-7.43) 09/28/18 16:50 VBG pCO2 32 mmHg (40-60) L 09/28/18 16:50 VBG HCO3 22.8 mmol/L 09/28/18 16:50 VBG Total CO2 21.8 mmol/L (22-28) L 09/28/18 16:50 VBG O2 Sat (Calc) 98.9 % (40-65) H 09/28/18 16:50 VBG Base Excess -2.8 mmol/L (0.0-2.0) L 09/28/18 16:50 VBG Potassium 3.3 mmol/L (3.6-5.2) L 09/28/18 16:50 Sodium 136.0 mmol/l (132-148) 09/28/18 16:50 Chloride 112.0 mmol/L (98-107) H 09/28/18 16:50 Glucose 96 mg/dl (75-110) 09/28/18 16:50 Lactate 1.8 mmol/L (0.7-2.1) 09/28/18 16:50 Sodium 135 mmol/L (132-148) 10/02/18 06:30 Potassium 3.7 mmol/L (3.6-5.2) 10/02/18 06:30 Chloride 103 mmol/L (98-107) 10/02/18 06:30 Carbon Dioxide 28 mmol/L (22-30) 10/02/18 06:30 Anion Gap 8 (10-20) L 10/02/18 06:30 BUN 8 mg/dL (9-20) L 10/02/18 06:30 Creatinine 0.8 mg/dL (0.8-1.5) 10/02/18 06:30 Est GFR ( Amer) > 60 10/02/18 06:30 Est GFR (Non-Af Amer) > 60 10/02/18 06:30 Random Glucose 107 mg/dL (75-110) 10/02/18 06:30 Hemoglobin A1c 5.9 % (4.2-6.5) 09/29/18 06:20 Lactic Acid 1.1 mmol/L (0.7-2.1) 09/29/18 14:12 Calcium 9.1 mg/dl (8.6-10.4) 10/02/18 06:30 Phosphorus 2.2 mg/dL (2.5-4.5) L 10/02/18 06:30 Magnesium 1.6 mg/dL (1.6-2.3) 10/02/18 06:30 Total Bilirubin 0.5 mg/dL (0.2-1.3) 10/02/18 06:30 AST 24 U/L (17-59) 10/02/18 06:30 ALT 10 U/L (21-72) L D 10/02/18 06:30 Alkaline Phosphatase 70 U/L (38-126) 10/02/18 06:30 Total Protein 6.9 g/dL (6.3-8.3) 10/02/18 06:30 Albumin 3.6 g/dL (3.5-5.0) 10/02/18 06:30 Globulin 3.3 gm/dL (2.2-3.9) 10/02/18 06:30 Albumin/Globulin Ratio 1.1 (1.0-2.1) 10/02/18 06:30 Procalcitonin 1.66 NG/ML (0.19-0.49) H 10/02/18 13:52 Venous Blood Potassium 3.3 mmol/L (3.6-5.2) L 09/28/18 16:50 Urine Color Yellow (YELLOW) 10/01/18 02:52 Urine Clarity Clear (Clear) 10/01/18 02:52 Urine pH 7.0 (5.0-8.0) 10/01/18 02:52 Ur Specific [place] 1.009 (1.003-1.030) 10/01/18 02:52 Urine Protein Negative mg/dL (NEGATIVE) 10/01/18 02:52 Urine Glucose (UA) Normal mg/dL (Normal) 10/01/18 02:52 Urine Ketones Trace mg/dL (NEGATIVE) 10/01/18 02:52 Urine Blood Negative (NEGATIVE) 10/01/18 02:52 Urine Nitrate Negative (NEGATIVE) 10/01/18 02:52 Urine Bilirubin Negative (NEGATIVE) 10/01/18 02:52 Urine Urobilinogen Normal mg/dL (0.2-1.0) 10/01/18 02:52 Ur Leukocyte Esterase Trace Jed/uL (Negative) 10/01/18 02:52 Urine WBC (Auto) 16 /hpf (0-5) H 10/01/18 02:52 Urine RBC (Auto) 1 /hpf (0-3) 10/01/18 02:52 Ur Squamous Epith Cells < 1 /hpf (0-5) 10/01/18 02:52 Stool Occult Blood Negative (NEGATIVE) 09/29/18 20:57 Stool Leukocytes, Qual Negative (NEGATIVE) 09/29/18 20:57 Urine Opiates Screen Negative (NEGATIVE) 09/28/18 21:47 Urine Methadone Screen Negative (NEGATIVE) 09/28/18 21:47 Ur Barbiturates Screen Negative (NEGATIVE) 09/28/18 21:47 Ur Phencyclidine Scrn Negative (NEGATIVE) 09/28/18 21:47 Ur Amphetamines Screen Negative (NEGATIVE) 09/28/18 21:47 U Benzodiazepines Scrn Negative (NEGATIVE) 09/28/18 21:47 U Oth Cocaine Metabols Negative (NEGATIVE) 09/28/18 21:47 U Cannabinoids Screen Negative (NEGATIVE) 09/28/18 21:47 RPR Nonreactive (NONREACTIVE) 09/29/18 06:20 C.trachomatis RNA (TMA) Not detected (Not Detected) 09/28/18 14:44 Hepatitis A IgM Ab Negative (NEGATIVE) 09/29/18 06:20 Hep Bs Antigen Negative (NEGATIVE) 09/29/18 06:20 Hep B Core IgM Ab Negative (NEGATIVE) 09/29/18 06:20 Hepatitis C Antibody Negative (NEGATIVE) 09/29/18 06:20 HIV 1&2 Antibody Screen Negative (NEGATIVE) 09/29/18 06:20 N.gonorrhoeae RNA (TMA) Not detected (Not Detected) 09/28/18 14:44 Discharge Exam - Head Exam Head Exam: ATRAUMATIC, NORMOCEPHALIC Additional comments: facial rash over the right zygoma and left zygoma (not butterfly distribution) - Eye Exam Eye Exam: EOMI - ENT Exam ENT Exam: Mucous Membranes Moist - Respiratory Exam Respiratory Exam: Clear to PA & Lateral, NORMAL BREATHING PATTERN. absent: Rales, Rhonchi - Cardiovascular Exam Cardiovascular Exam: REGULAR RHYTHM, +S1, +S2 - GI/Abdominal Exam GI & Abdominal Exam: Normal Bowel Sounds, Soft. absent: Diminished Bowel Sounds, Distended, Firm, Guarding, Rebound, Rigid, Tenderness - Extremities Exam Extremities exam: pedal pulses present - Back Exam Back exam: absent: CVA tenderness (L), CVA tenderness (R) - Neurological Exam Neurological exam: Alert, Oriented x3 - Skin Skin Exam: Dry, Intact, Normal Color, Warm Attending/Attestation - Attestation I have personally seen and examined this patient.: Yes I have fully participated in the care of the patient.: Yes I have reviewed all pertinent clinical information, including history, physical exam and plan: Yes Notes (Text): This is late computer entry for 10/02/18. Patient seen, examined and case discussed with day-time resident. Patient reports he is feeling better; improving suprapubic pain and testicular pain. Patient had fever earlier, white count normalized, procalcitonin continues to improve. Patient tolerate first dose of Invanez in hospital without adverse effect prior to discharge. Blood cultures negative. Patient to follow-up with the outpatient transfusion to finish antibiotic course for ESBL+ UTI. Patient counselled to alternate Tylenol and Motrin for fever. Prescriptions needed: Lactobacillus 1 tab by mouth twice daily, 8 am and 8 pm. #60 Motrin 800 mg 1 tab by mouth up to three times day, every 8 hours, as needed for fever. #21 Please take OTC Tylenol and Motrin as above as needed for fevers, do not exceed daily maximum dose. 4g for Tylenol, Motrin 2400mg. Please apply Bactroban ointment to redness to the face as needed three times a day. Pt is to continue receiving once daily infusions of Ertapenem 1g IVPB at outpatient infusion center until 10/11/18. He is also to have CBC, CMP every 3 days at the outpatient center. Pt should follow up with PMD ([facility]), or [facility], within 1 week of discharge. Please call for appointment. Pt should obtain a referral for urologist from the clinic, and follow up with 2 weeks of discharge. Pt should obtain a biopsy of the facial rash, suspect impetigo, at his PMD's office. This is a summary of patient's hospitalization. Please see refer to EMR for full detail record. Discharge diagnoses: 1. Sepsis (resolved) +ESBL UTI Epididymitis Pyleonephritis Assessment/Plan * Criteria: 102.0F, leukocytosis, suspected epididymitis and pyleonepritis * Code sepsis was called 09/28/18, Received Rocephin 250mg IM, Azithromax 1000mg, Ciprofloxacin 400mg IVPB * Infectious Disease (Dr. Krishnamurthy) on case help appreciated. * Urology (Dr. Casas) on case help appreciated * Procalcitionin: 11.23-->4.17-->1.66 * Lactic acid: 2.1-->1.8-->2.2-->1.1 * Contact isolation * CT abd/pelvis showed No acute abnormality. Punctate 1-2 mm calcification in the upper pole left kidney, possibly cortical versus collecting system but nonobstructing. No additional abnormality (see full report). * IV abx: Meropenem 1gram IV Q8H (active since 09/28/18) * to setup to complete 14 day course on Invanez * Bacid 1 tab PO BID * NS 150cc/hr * Tylenol 650mg PO Q6H prn fever T>100.4F * UCx 09/28: E.col * UCx 10/01: no growth * Blood culture (09/28/18): no growth after 4 days X2 * Blood culture (09/28/18): no growth after 3 days X2 * Stool culture: no salmonella, shigella, or campylobacter isolated * Testicular US 09/29: no evidence for testicular mass, torsion, or epididymo- orchitis. Bilateral small hydroceles. * F/U GC/Chlamydia, HSV 1+2 IgM, RPR 2. Tachycardia (resolved) Assessment/Plan * Likely secondary to sepsis, fever, dehydration * EKG showed tachycardia with RBBB (unchanged from previous EKG) * Troponin negative x 3 * CXR shows minor left basilar atelectasis and/or scarring 3. Hypomagnesemia (chronic) Assessment/Plan * monitor and replete 4. Impaired glucose tolerance (chronic) Assessment/Plan * HgbA1c is 5.9 * Pt educated on diet and exercise, and negative effects of uncontrolled diabetes. 5. Chronic Right shoulder pain (chronic) Assessment/Plan * MRI upper extremity : 1. Foot in thickness tear supraspinatus tendon with proxy 1 cm retraction from the rupture site. No muscle atrophy related. Degenerative tendinosis is seen at the infraspinatus tendon. 2. Prominent acromioclavicular joint degenerative arthrosis. 3. Trace subacromial subdeltoid bursitis (05/2017) 6. History of Asthma (chronic) Assessment/Plan * Duonebs PRN shortness of breathe * Continue to monitor 7. GI/DVT ppx: * Protonix 40mg IVP daily * SCDs (patient is refusing chemical ppx despite being educated on the use) * lactobacillus 1 tab po BID * IV Hydration: NS 150cc/hr * PT eval/OT eval * Contact isolation * heparin 5000 unit [id number]
[2018-10-02 16:24] VITALS: BP 131/88; PULSE 84; TEMP 97.6; O2SAT 98
[2018-10-02] MEDS ORDERED: Bacitracin Ointment 30 GM TUBE TOP SCH (18:00)
== END 2018-10-02 16:24 | disposition home or self-care (01) | DRG 720 ==
LOC: C.ER 12:56 → C.9E 15:11 → C.3T 15:36
PROVIDERS: ADMIT Hospitalist; ATTEND Hospitalist
PROC: 02HV33Z Insertion of Infusion Device into Superior Vena Cava, Percutaneous Approach (ICD-10-PCS; principal; 2018-10-01)
DX: A41.9 Sepsis, unspecified organism (principal); E83.42 Hypomagnesemia; N12 Tubulo-interstitial nephritis, not specified as acute or chronic; N45.1 Epididymitis; N43.3 Hydrocele, unspecified; R65.20 Severe sepsis without septic shock; B96.20 Unspecified Escherichia coli [E. coli] as the cause of diseases classified elsewhere; M75.51 Bursitis of right shoulder; E87.6 Hypokalemia; E86.0 Dehydration; I45.10 Unspecified right bundle-branch block; J45.909 Unspecified asthma, uncomplicated; A64 Unspecified sexually transmitted disease; R73.02 Impaired glucose tolerance (oral)